=== PATIENT | male | born 1950 | race Caucasian/White ===

== ENCOUNTER 2020-10-28 18:09 | Inpatient (IN) ==
[2020-10-28] MEDS ORDERED: SODIUM CHLORIDE 0.9% 1000ML 1,000 ML IV SCH (18:45)
--- NOTE | 2020-10-28 19:36 | Emergency Department Note ---
History of Present Illness General Chief complaint: Illness Time Seen by Provider: 10/28/20 18:21 Source: patient and RN notes reviewed Mode of arrival: EMS Limitations: altered mental status (Dementia) History of Present Illness Provider complaint: Pulled Borrego catheter out and bleeding from penis This is a 69-year-old male who presents to the ED with a chief complaint of pulling his Borrego catheter out. The patient was seen by urology yesterday and had a Borrego catheter placed. The patient pulled out the catheter this morning and he subsequently somehow pulled out tonight. The is concerned about possible UTI. No additional complaints. Patient offers no additional information as he has dementia. Home Medications Medication Instructions Recorded Confirmed Type acetaminophen [Tylenol Extra 500 mg PO Q6H PRN 04/12/19 10/28/20 History Strength] carbidopa-levodopa 1 tab PO TID 04/12/19 10/28/20 History cranberry 500 mg PO DAILY 04/12/19 10/28/20 History levetiracetam [Keppra] 500 mg PO BID 04/12/19 10/28/20 History metformin 1,000 mg PO BID 04/12/19 10/28/20 History tamsulosin 0.4 mg PO DAILY 04/12/19 10/28/20 History cholecalciferol (vitamin D3) 2,000 unit PO DAILY 08/30/19 10/28/20 History [Vitamin D3] acetaminophen [Tylenol] 650 mg PO Q4 PRN 10/28/20 10/28/20 History apixaban [Eliquis] 5 mg PO BID 10/28/20 10/28/20 History ascorbic acid (vitamin C) [Vitamin 500 mg PO DAILY 10/28/20 10/28/20 History C] aspirin [Aspir-Low] 81 mg PO DAILY 10/28/20 10/28/20 History bisacodyl [Dulcolax (bisacodyl)] 10 mg MI DAILY PRN 10/28/20 10/28/20 History cyanocobalamin (vitamin B-12) 1,000 mcg PO DAILY 10/28/20 10/28/20 History dofetilide 250 mcg PO BID 10/28/20 10/28/20 History garlic 0 mg PO DAILY 10/28/20 10/28/20 History glipizide 2.5 mg PO DAILY 10/28/20 10/28/20 History magnesium hydroxide [Milk of 30 ml PO UD PRN 10/28/20 10/28/20 History Magnesia] methenamine hippurate 1 g PO BID 10/28/20 10/28/20 History nitrofurantoin monohyd/m-cryst 100 mg PO BID 10/28/20 10/28/20 History [Macrobid] pantoprazole 40 mg PO DAILY 10/28/20 10/28/20 History Allergies Allergy/AdvReac Type Severity Reaction Status Date / Time ciprofloxacin [From Cipro] Allergy Unknown Verified 10/28/20 20:51 Past Med/Surg History Medical History Dementia Diabetes HTN (hypertension) Parkinson disease Surgical History No pertinent past surgical history Family History Other No pertinent family history in first degree relatives Social History Smoking Status: Former smoker Preferred Language: Faroese Feels Safe at Home: Yes Review of Systems A total of 10 systems reviewed and were otherwise negative Physical Exam Vital Signs Vital Signs - 24 hr 10/28/20 18:15 10/28/20 18:18 10/28/20 18:24 Temperature 36.9 C Temperature Source Oral Pulse Rate 125 H 122 H 120 H Respiratory Rate 15 20 18 Respiratory Depth Normal Blood Pressure 125/70 125/70 Blood Pressure Mean 82 88 Pulse Oximetry 95 Oxygen Delivery Method Room Air Sepsis Recent Fever Within 48 Hours No Sepsis New/Unexplained Change in Mental Status No Sepsis Action Taken by Nursing No Action Required 10/28/20 18:30 10/28/20 18:49 10/28/20 19:01 Temperature Temperature Source Pulse Rate 131 H 127 H Respiratory Rate 15 20 Respiratory Depth Blood Pressure Blood Pressure Mean Pulse Oximetry 94 Oxygen Delivery Method Room Air Sepsis Recent Fever Within 48 Hours Sepsis New/Unexplained Change in Mental Status Sepsis Action Taken by Nursing 10/28/20 19:30 10/28/20 19:45 10/28/20 19:46 Temperature Temperature Source Pulse Rate 120 H 116 H 114 H Respiratory Rate 20 20 20 Respiratory Depth Blood Pressure 141/79 H Blood Pressure Mean 93 Pulse Oximetry Oxygen Delivery Method Sepsis Recent Fever Within 48 Hours Sepsis New/Unexplained Change in Mental Status Sepsis Action Taken by Nursing 10/28/20 20:00 10/28/20 20:01 10/28/20 20:30 Temperature Temperature Source Pulse Rate 114 H 114 H 105 H Respiratory Rate 15 20 20 Respiratory Depth Blood Pressure 134/73 Blood Pressure Mean 78 Pulse Oximetry Oxygen Delivery Method Sepsis Recent Fever Within 48 Hours Sepsis New/Unexplained Change in Mental Status Sepsis Action Taken by Nursing 10/28/20 20:31 Temperature Temperature Source Pulse Rate 107 H Respiratory Rate 24 Respiratory Depth Blood Pressure 135/69 Blood Pressure Mean 86 Pulse Oximetry Oxygen Delivery Method Sepsis Recent Fever Within 48 Hours Sepsis New/Unexplained Change in Mental Status Sepsis Action Taken by Nursing CONSTITUTIONAL/VITAL SIGNS: Reviewed / noted above. GENERAL: Non-toxic in appearance. INTEGUMENTARY: Warm, dry, and [place]. HEAD: Normocephalic. EYES: without scleral icterus or trauma. ENT/OROPHARYNX: clear and moist. LYMPHADENOPATHY/NECK: Is supple without lymphadenopathy or meningismus. RESPIRATORY: Lungs clear and equal. CARDIOVASCULAR: Regular rate and rhythm. GI/ABDOMEN: Soft and nontender. No organomegaly or pulsatile mass. No rebound or guarding. Normal bowel sounds. EXTREMITIES: Warm and well perfused. BACK: No CVA tenderness. NEUROLOGICAL: Intact without focal deficits. PSYCHIATRIC: normal affect. MUSCULOSKELETAL: Normally developed with good muscle tone. : The patient has small amount of blood at the tip of the penis. TRIAGE NURSING DOCUMENTATION REVIEWED. Course Administered Medications Discontinued Medications Sodium Chloride (Nss 1000ml) 1,000 mls @ 999 mls/hr IV .Q1H1M CHARLINE Stop: 10/28/20 19:45 Last Admin: 10/28/20 20:19 Dose: 999 mls/hr Documented by: [id number] Medical Decision Making Differential Diagnosis Differential includes acute coronary syndrome, myocardial infarction, CVA, TIA, anemia, infection, pneumonia, UTI, pyelonephritis, poor nutrition, dehydration, electrolyte disturbance,hypoglycemia. Medical Records Attestation: I reviewed the patient's medical records. Home Medications Current Medication List: was personally reviewed by me Laboratory Data Attestation: I reviewed the patient's lab results. Result diagrams: 10/28/20 20:16 10/28/20 20:16 Lab Results 10/28/20 10/28/20 Range/Units 20:16 20:16 WBC 16.78 H (4.8-10.8) K/uL RBC 4.65 L (4.7-6.1) M/uL Hgb 12.6 L (14.0-18.0) g/dL Hct 37.9 L (42-52) % MCV 81.5 (80-100) fL MCH 27.1 (25-34) pg MCHC 33.2 (32-36) g/dL RDW Std Deviation 45.9 (36.4-46.3) fL RDW Coeff of Donovan 15.5 H (11.5-14.5) % Plt Count 281 (130-400) K/uL MPV 9.9 (7.4-10.4) fL Immature Gran % (Auto) 0.2 % Neut % (Auto) 93.4 % Lymph % (Auto) 2.9 % [place] % (Auto) 3.4 % Eos % (Auto) 0.0 % Baso % (Auto) 0.1 % Neut # (Auto) 15.67 H (1.4-6.5) K/uL Lymph # (Auto) 0.49 L (1.2-3.4) K/uL [place] # (Auto) 0.57 (0.11-0.59) K/uL Eos # (Auto) 0.00 (0-0.5) K/uL Baso # (Auto) 0.01 (0-0.2) K/uL Immature Gran # (Auto) 0.04 H (0.00-0.02) K/uL Sodium 138 (136-145) mmol/L Potassium 4.5 (3.5-5.1) mmol/L Chloride 102 (98-107) mmol/L Carbon Dioxide 26 (21-32) mmol/L Anion Gap 10.0 (3-11) BUN 23 H (7-18) mg/dl Creatinine 1.79 H (0.6-1.4) mg/dl Est Cr Clr Drug Dosing 40.9 ml/min Est GFR ( Amer) 43.5 Est GFR (Non-Af Amer) 37.6 BUN/Creatinine Ratio 13.0 (10-20) Glucose 136 H (70-99) mg/dl Calcium 10.4 H (8.5-10.1) mg/dl Total Bilirubin 0.6 (0.2-1) mg/dl AST 13 L (15-37) U/L ALT 24 (12-78) U/L Alkaline Phosphatase 96 (45-117) U/L Total Protein 8.4 H (6.4-8.2) gm/dl Albumin 4.0 (3.4-5.0) gm/dl Globulin 4.4 H (2.5-4.0) gm/dl Albumin/Globulin Ratio 0.9 (0.9-2) MDM Narrative Patient presents to the ED with a chief complaint of some blood at the tip of the penis after pulling Borrego catheter out. They were also concerned about some mild confusion. The patient's white blood count was 16.78. His chemistry panel shows a BUN of 23 and a creatinine of 1.79.This is slightly higher than labs in August. Nurses attempt to place a Borrego catheter but were unable to do so. I did talk with Dr. Zhou who did a cystoscopy yesterday and place a catheter via cystoscopy. He stated that the patient did not need to catheter and is typically dribbling on a regular basis. He did not feel the patient requires a catheter and can safely go home with monitoring of the urine output to see if he develops any symptoms of urinary retention. A bladder scan showed about 300 cc of urine in the bladder. The patient did start dribbling while he was here and was passing a little bit of urine. We were unable to get a urine sample. Because there is a slight elevation of the white blood cell count, the patient was given an IV dose of Rocephin. The patient has a culture of the urine from yesterday showing gram-negative bacilli. Because of the patient's confusion of the UTI, he will be seen by the hospitalist for further inpatient evaluation and care. He was given some IV fluids during his ED stay. Impression & Plan Acute UTI, Acute confusion, Acute kidney injury Discharge Plan Visit Data Chief Complaint: Illness ED Provider: Russel Jarvis Discharge Problem: Acute UTI, Acute confusion, Acute kidney injury Patient Disposition: Being Evaluated by Hospitalist Forms Stand Alone Forms: My [facility] Prescriptions Prescriptions: No Action levetiracetam [Keppra] 500 mg Tablet 500 mg PO BID RF: 0 metformin 1,000 mg Tablet 1,000 mg PO BID RF: 0 tamsulosin 0.4 mg Capsule 0.4 mg PO DAILY RF: 0 carbidopa-levodopa 25-100 mg tablet 1 tab PO TID RF: 0 cranberry 500 mg Capsule 500 mg PO DAILY RF: 0 acetaminophen [Tylenol Extra Strength] 500 mg Tablet 500 mg PO Q6H PRN (Reason: Mild Pain (Scale Score 1-4)) RF: 0 cholecalciferol (vitamin D3) [Vitamin D3] 2,000 unit Tablet 2,000 unit PO DAILY RF: 0 cyanocobalamin (vitamin B-12) 1,000 mcg Tablet 1,000 mcg PO DAILY RF: 0 dofetilide 125 mcg capsule 250 mcg PO BID RF: 0 aspirin [Aspir-Low] 81 mg Tablet,Delayed Release (Dr/Ec) 81 mg PO DAILY RF: 0 methenamine hippurate 1 gram tablet 1 g PO BID RF: 0 magnesium hydroxide [Milk of Magnesia] 400 mg/5 mL Suspension 30 ml PO UD PRN (Reason: Constipation) RF: 0 ascorbic acid (vitamin C) [Vitamin C] 500 mg Tablet 500 mg PO DAILY RF: 0 glipizide 2.5 mg tablet extended release 24hr 2.5 mg PO DAILY RF: 0 bisacodyl [Dulcolax (bisacodyl)] 10 mg Suppository 10 mg MI DAILY PRN (Reason: Constipation) RF: 0 pantoprazole 40 mg tablet,delayed release (DR/EC) 40 mg PO DAILY RF: 0 garlic Tablet 0 mg PO DAILY RF: 0 nitrofurantoin monohyd/m-cryst [Macrobid] 100 mg Capsule 100 mg PO BID RF: 0 acetaminophen [Tylenol] 325 mg Capsule 650 mg PO Q4 PRN (Reason: Fever Or Pain) RF: 0 Eliquis 5 mg tablet 5 mg PO BID RF: 0 Referrals Referrals: Kostas Hannah [Primary Care Provider] -
[2020-10-28 20:26] LABS: Hematocrit (blood only) 37.9 % (42-52); Hemoglobin 12.6 g/dL (14.0-18.0); Mean Corpuscular Hemoglobin 27.1 pg (25-34); Mean Corpuscular Hgb Conc 33.2 g/dL (32-36); Mean Corpuscular Volume 81.5 fL (80-100); Mean Platelet Volume 9.9 fL (7.4-10.4); Platelet Count 281 K/uL (130-400); RDW Coefficient of Variation 15.5 % (11.5-14.5); RDW Standard Deviation 45.9 fL (36.4-46.3); Red Blood Count 4.65 M/uL (4.7-6.1); White Blood Count 16.78 K/uL (4.8-10.8)
[2020-10-28 20:44] LABS: Calcium 10.4 mg/dl (8.5-10.1); Creatinine Clr Calc Pharmacy 40.9 ml/min; Est GFR (African American) 43.5; Est GFR (Non-African American) 37.6; Potassium 4.5 mmol/L (3.5-5.1)
[2020-10-28 20:47] LABS: Albumin Globulin Ratio 0.9 (0.9-2); Bilirubin,Total 0.6 mg/dl (0.2-1); Globulin 4.4 gm/dl (2.5-4.0); Total Protein 8.4 gm/dl (6.4-8.2)
[2020-10-28 20:51] LABS: Basophils # (auto) 0.01 K/uL (0-0.2); Basophils % (auto) 0.1 %; Immature Granulocytes # (auto) 0.04 K/uL (0.00-0.02); Immature Granulocytes % (auto) 0.2 %; Lymphocytes # (auto) 0.49 K/uL (1.2-3.4); Lymphocytes % (auto) 2.9 %; Monocytes # (auto) 0.57 K/uL (0.11-0.59); Monocytes % (auto) 3.4 %; Neutrophils # (auto) 15.67 K/uL (1.4-6.5); Neutrophils % (auto) 93.4 %
[2020-10-28] MEDS ORDERED: cefTRIAXone SODIUM 1,000 MG/50 ML BAG IV STA (21:00)
--- NOTE | 2020-10-28 22:58 | History & Physical Report ---
Date of Service October 28, 2020 Assessment & Plan (1) Acute UTI: Mr. Porras is a 69 yo M with a PMHx of BPH with urinary retention and recurrent UTIs who underwent a cystoscopy 1 day [employer] with mascorro catheter placement who was brought to the emergency department from his acute rehab facility after his mascorro catheter was reportedly removed due to concerns about clotting. On arrival to the ED, Mr. Porras met SIRS criteria (WBC > 12k, HR > 90bpm), and his urine culture from 10/27/20 returned growing gram - bacilli. Patient was given 1 liter of normal saline and 1 dose of Rocephin on admission. The ED physician reportedly communicated with Dr. Julio C Zhou, who recommend initiation of antibiotics and observing Mr. Porras overnight to assess for ability to spontaneously void without a mascorro catheter in place. - on review of scanned documents, outside records indicate Mr. Porras had a urine culture from April 2020 + ESBL Klebsiella. - will d/c Rocephin and initiate antimicrobial therapy with Meropenem - will place on contact precautions for ESBL hx - patient receive 1 liter of normal saline in ED. Will add 1 liter bolus of LR + continuous fluids at 100mls/hr - repeat CBC in am - follow urine culture results (2) BPH w urinary obs/LUTS: - patient with known BPH and incomplete bladder voiding - patient did have A/P CT scan on 10/12 at [facility] which showed bilateral hydronephrosis, thought to be chronic from his BPH - cystoscopy and mascorro placement on 10/27/20; cath removed by rehab staff today for clotting issue. ED nursing staff unable to replace - assess for patient's ability to saponaceously void. If able, no need to replace mascorro - bladder scans and straight caths prn - continue home dose of Flomax - start Finasteride (per Dr. Zhou note on 10/27/20). 1st dose given on evening of 10/28 - urology consult placed (3) Hematuria, gross: - hematuria reported by acute rehab staff likely secondary to recent procedure while on Eliquis - mascorro removed at rehab [employer] - Hgb stable - trend CBC (4) Acute confusion: - patient does have underlying dementia (exact baseline unknown) - suspect acute change secondary to UTI - electrolytes WNL - no report of fall/head trauma from rehab facility - continue to monitor with serial exams (5) Acute kidney injury: - Cr elevated to 1.74 on admission (was 1.3 in 08/2020) - BUN elevated to 23; ratio 13 - suspect prenal etiology - IV as above - repeat BMP in am (6) Parkinson disease: - history of - continue home dose sinemet (7) Diabetes: - history of - BG elevated to 123 on arrival, although this may be secondary to physiologic stress response (in the setting of acute infection) - BG checks ACHS - hold home metformin and glipizide - will start Lantus insulin 5 units BID with correction factor of 55 and carb ratio of 22 (8) Hx of seizure disorder: - continue home dose Keppra (9) Paroxysmal atrial fibrillation: - on chronic anticoagulation with eliquis - continue home dofetilide (question of this drug's utility) - patient was also on antiplatelet therapy with ASA 81mg daily - however it does not appear as though he has underlying CAD. Recommend not restarting daily ASA therapy - patient in sinus rhythm on admission Diet: Carb Consistent DM2 Dispo: Med/Surg w. Tele Dvt ppx: on eliquis Code: DNR/DNI, I discussed with patient's phone over phone on admission History of Present Illness Primary Care Provider: Kostas Hannah Mr. Porras is a 69 yo gentleman with a PMHx of BPH with urinary retention and recurrent UTIs who was admitted today from his rehab facility after removal of a Mascorro catheter. Of note, yesterday (10/27/20) Mr. Porras had an in-office cystoscopy performed by Dr. Julio C Zhou, at which time a urinary catheter was placed. It appears as though Mr. Porras has prostatomegaly, which is causing incomplete bladder voiding and subsequent UTIs. Dr. Zhou recommend consideration of a prostate de-bulking procedure in the near future, and started Mr. Porras on finasteride in the interim. At the time of his office visit with Dr. Zhou yesterday, a urine culture was obtained. Mr. Porras's reports that she was contacted by the staff at his rehab facility today, who reported they removed his mascorro catheter 'because it kept clotting up.' Mr. Porras is on chronic anticoagulation with Eliquis for paroxysmal atrial fibrillation. On arrival to the ED, Mr. Porras was lethargic; he was afebrile and mildly tachycardic to 108 bpm. His WBC was elevated to 16 with neutrophil predominance. Urine culture from 10/27/20 showed growth of gram - bacilli. His Cr was elevated to 1.74 (up from 1.3 in 08/2020), and BUN was mildly elevated to 23. COVID 19 negative. He was given 1 liter of normal saline and 1 dose of IV Rocephin. Nursing staff attempted to re-place mascorro catheter but was unable. Allergies Allergy/AdvReac Type Severity Reaction Status Date / Time ciprofloxacin [From Cipro] Allergy Unknown Verified 10/28/20 20:51 Home Medications Medication Instructions Recorded Confirmed Type acetaminophen [Tylenol Extra 500 mg PO Q6H PRN 04/12/19 10/28/20 History Strength] carbidopa-levodopa 1 tab PO TID 04/12/19 10/28/20 History cranberry 500 mg PO DAILY 04/12/19 10/28/20 History levetiracetam [Keppra] 500 mg PO BID 04/12/19 10/28/20 History metformin 1,000 mg PO BID 04/12/19 10/28/20 History tamsulosin 0.4 mg PO DAILY 04/12/19 10/28/20 History cholecalciferol (vitamin D3) 2,000 unit PO DAILY 08/30/19 10/28/20 History [Vitamin D3] acetaminophen [Tylenol] 650 mg PO Q4 PRN 10/28/20 10/28/20 History apixaban [Eliquis] 5 mg PO BID 10/28/20 10/28/20 History ascorbic acid (vitamin C) [Vitamin 500 mg PO DAILY 10/28/20 10/28/20 History C] aspirin [Aspir-Low] 81 mg PO DAILY 10/28/20 10/28/20 History bisacodyl [Dulcolax (bisacodyl)] 10 mg SD DAILY PRN 10/28/20 10/28/20 History cyanocobalamin (vitamin B-12) 1,000 mcg PO DAILY 10/28/20 10/28/20 History dofetilide 250 mcg PO BID 10/28/20 10/28/20 History garlic 0 mg PO DAILY 10/28/20 10/28/20 History glipizide 2.5 mg PO DAILY 10/28/20 10/28/20 History magnesium hydroxide [Milk of 30 ml PO UD PRN 10/28/20 10/28/20 History Magnesia] methenamine hippurate 1 g PO BID 10/28/20 10/28/20 History nitrofurantoin monohyd/m-cryst 100 mg PO BID 10/28/20 10/28/20 History [Macrobid] pantoprazole 40 mg PO DAILY 10/28/20 10/28/20 History Past Med/Surg History Medical History (Updated 10/29/20 @ 00:34 by Charisse Goode DO) BPH w urinary obs/LUTS Dementia Diabetes HTN (hypertension) Hx of seizure disorder Parkinson disease Paroxysmal atrial fibrillation Surgical History No pertinent past surgical history Family History Other No pertinent family history in first degree relatives Social History Smoking Status: Never smoker Hx Alcohol Use: No Hx Substance Use: No Preferred Language: German Communication Ability: Effective Communication Ability Comment: when no infection Beliefs That Will Affect Care: None Current Living Situation: Spouse Current Living Situation Comment: normally with spouse at home Other Information That Helps Us Care for You: No Feels Safe at Home: Yes Safety Concerns: Feels Safe At This Time Assistive Devices: Glasses and Walker Review of Systems Gastrointestinal: no abdominal pain Physical Exam Constitutional: well developed, well nourished, + ill appearing and + altered mental status Eyes: + anicteric sclerae ENMT: external ear and nose normal, oropharynx normal Neck: normal visual inspection and trachea midline Respiratory: normal respiratory effort, lungs clear to auscultation Cardiovascular: Rate/Rhythm: regular rhythm and + tachycardic Heart Sounds: normal S1 and normal S2; no gallop, no murmur and no cardiac rub Extremities: no pedal edema Gastrointestinal (Abdomen): Inspection/Auscultation: abdomen normal to inspection and normal bowel sounds; abdomen not distended Percussion/Palpation: abdomen soft; abdomen nontender Skin: no rashes, warm and dry Psychiatric: Orientation: oriented to person and oriented to place; + not alert (drowsy, arousable to sternal rub) and + not oriented to time Results & Data Results & Data ([facility]) Vital Signs (Past 12 Hours) Vital Signs Temp Pulse Resp BP Pulse Ox 10/28/20 22:32 108 H 21 151/81 H 10/28/20 22:30 108 H 23 10/28/20 22:01 107 H 21 117/78 10/28/20 22:00 108 H 22 10/28/20 21:32 109 H 24 10/28/20 21:31 111 H 20 144/88 H 10/28/20 21:30 109 H 19 10/28/20 21:02 108 H 23 10/28/20 21:01 110 H 14 149/96 H 10/28/20 21:00 107 H 19 10/28/20 20:32 106 H 20 10/28/20 20:31 107 H 24 135/69 10/28/20 20:30 105 H 20 10/28/20 20:01 114 H 20 134/73 10/28/20 20:00 114 H 15 10/28/20 19:46 114 H 20 10/28/20 19:45 116 H 20 141/79 H 10/28/20 19:30 120 H 20 10/28/20 19:01 127 H 20 10/28/20 18:49 94 10/28/20 18:30 131 H 15 10/28/20 18:24 36.9 C 120 H 18 125/70 95 10/28/20 18:18 122 H 20 10/28/20 18:15 125 H 15 125/70 Laboratory Results Lab Results 10/28/20 10/28/20 10/28/20 Range/Units 20:16 20:16 21:50 WBC 16.78 H (4.8-10.8) K/uL RBC 4.65 L (4.7-6.1) M/uL Hgb 12.6 L (14.0-18.0) g/dL Hct 37.9 L (42-52) % MCV 81.5 (80-100) fL MCH 27.1 (25-34) pg MCHC 33.2 (32-36) g/dL RDW Std Deviation 45.9 (36.4-46.3) fL RDW Coeff of Donovan 15.5 H (11.5-14.5) % Plt Count 281 (130-400) K/uL MPV 9.9 (7.4-10.4) fL Immature Gran % (Auto) 0.2 % Neut % (Auto) 93.4 % Lymph % (Auto) 2.9 % [place] % (Auto) 3.4 % Eos % (Auto) 0.0 % Baso % (Auto) 0.1 % Neut # (Auto) 15.67 H (1.4-6.5) K/uL Lymph # (Auto) 0.49 L (1.2-3.4) K/uL [place] # (Auto) 0.57 (0.11-0.59) K/uL Eos # (Auto) 0.00 (0-0.5) K/uL Baso # (Auto) 0.01 (0-0.2) K/uL Immature Gran # (Auto) 0.04 H (0.00-0.02) K/uL Sodium 138 (136-145) mmol/L Potassium 4.5 (3.5-5.1) mmol/L Chloride 102 (98-107) mmol/L Carbon Dioxide 26 (21-32) mmol/L Anion Gap 10.0 (3-11) BUN 23 H (7-18) mg/dl Creatinine 1.79 H (0.6-1.4) mg/dl Est Cr Clr Drug Dosing 40.9 ml/min Est GFR ( Amer) 43.5 Est GFR (Non-Af Amer) 37.6 BUN/Creatinine Ratio 13.0 (10-20) Glucose 136 H (70-99) mg/dl Calcium 10.4 H (8.5-10.1) mg/dl Total Bilirubin 0.6 (0.2-1) mg/dl AST 13 L (15-37) U/L ALT 24 (12-78) U/L Alkaline Phosphatase 96 (45-117) U/L Total Protein 8.4 H (6.4-8.2) gm/dl Albumin 4.0 (3.4-5.0) gm/dl Globulin 4.4 H (2.5-4.0) gm/dl Albumin/Globulin Ratio 0.9 (0.9-2) COVID-19 Eval [facility] SARS-CoV-2, RNA, NAAT (NEGATIVE) 10/28/20 Range/Units 21:50 WBC (4.8-10.8) K/uL RBC (4.7-6.1) M/uL Hgb (14.0-18.0) g/dL Hct (42-52) % MCV (80-100) fL MCH (25-34) pg MCHC (32-36) g/dL RDW Std Deviation (36.4-46.3) fL RDW Coeff of Donovan (11.5-14.5) % Plt Count (130-400) K/uL MPV (7.4-10.4) fL Immature Gran % (Auto) % Neut % (Auto) % Lymph % (Auto) % [place] % (Auto) % Eos % (Auto) % Baso % (Auto) % Neut # (Auto) (1.4-6.5) K/uL Lymph # (Auto) (1.2-3.4) K/uL [place] # (Auto) (0.11-0.59) K/uL Eos # (Auto) (0-0.5) K/uL Baso # (Auto) (0-0.2) K/uL Immature Gran # (Auto) (0.00-0.02) K/uL Sodium (136-145) mmol/L Potassium (3.5-5.1) mmol/L Chloride (98-107) mmol/L Carbon Dioxide (21-32) mmol/L Anion Gap (3-11) BUN (7-18) mg/dl Creatinine (0.6-1.4) mg/dl Est Cr Clr Drug Dosing ml/min Est GFR ( Amer) Est GFR (Non-Af Amer) BUN/Creatinine Ratio (10-20) Glucose (70-99) mg/dl Calcium (8.5-10.1) mg/dl Total Bilirubin (0.2-1) mg/dl AST (15-37) U/L ALT (12-78) U/L Alkaline Phosphatase (45-117) U/L Total Protein (6.4-8.2) gm/dl Albumin (3.4-5.0) gm/dl Globulin (2.5-4.0) gm/dl Albumin/Globulin Ratio (0.9-2) COVID-19 Eval Order SARS-CoV-2, RNA, NAAT NEGATIVE (NEGATIVE) ECG Additional Comments: Sinus tachycardia. No acute ischemic changes. Supervising Physician Co-Signing Physician Notes Patient seen and examined, chart reviewed, case discussed with Dr. Miller and I agree with her assessment and plan as documented above. Briefly, Rasheed Porras is a 69yo male with history of PAF on Eliquis, BPH with LUTS, presenting from his acute rehab facility after Mascorro removal - concern for urinary retention. Patient had a cystoscopy with Mascorro placement by Urology one day prior to admission. He reports pulling his Mascorro out, however, staff at rehab told patient's that they removed the Mascorro because it was clotting? Uncertain. However, patient currently with no Mascorro catheter in place. Attempts to replace one in the ER were unsuccessful. Patient is dribbling some urine, however. He has a UTI - urine cultures from 10/27/20 preliminary positive for GNB x 2 species, he has history of ESBL Klebsiella previously treated with Meropenem. Patient's updated by Dr. Miller at time of admission. She states that patient becomes quite confused with UTIs and thinks he has one now. Code status confirmed as DNR. On exam he is afebrile, sinus tachycardia otherwise HD stable He does not answer questions or participate in exam at this time. Skin - no rash HEENT - NC/AT, PERRL, EOMI, MMM Heart - +S1/S2, regular, tachycardic Lungs - CTA Abd - +BS, soft, NT/ND, no suprapubic fullness - slightly tender Ext - No edema Labs and images reviewed. Assessment/Plan: Observation to medical with telemetry - IVF -Monitor UOP - bladder scan as needed -Will continue Flomax and start Finasteride -Meropenem until cultures resulted -Urology assessment appreciated Resident Activity Tracking Resident Involvement: Resident Care Provided Care Provided: Adult Hospital Medicine
[2020-10-28] MEDS ORDERED: bisacodyL 10 MG SUPP PR PRN (23:18)
[2020-10-28] MEDS ORDERED: ONDANSETRON INJ 2 MG/ML 2 ML VIAL IV PRN (23:18)
[2020-10-28] MEDS ORDERED: POLYETHYLENE (MIRALAX) 17 GM PACK PO PRN (23:18)
[2020-10-28] MEDS ORDERED: FINASTERIDE 5 MG TAB PO STA (23:18)
[2020-10-28] MEDS ORDERED: MAGNESIUM HYDROXIDE SUSP 30 ML UDC PO PRN (23:18)
[2020-10-28] MEDS ORDERED: ACETAMINOPHEN 325 MG TAB PO PRN (23:18)
[2020-10-28] MEDS ORDERED: MEROPENEM CONSULT ACITVE PRN (23:18)
[2020-10-28] MEDS ORDERED: ALUMINUM/MAGNESIUM SUSP 30 ML UDC PO PRN (23:18)
[2020-10-28] MEDS ORDERED: LACTATED RINGER'S 1,000 ML IV ONE (23:30)
[2020-10-29] MEDS ORDERED: MEROPENEM 500 MG in SYRINGE 0 ML IV SCH
--- NOTE | 2020-10-29 00:44 | Billing Data ---
Date of Service October 28, 2020 Coding Level of Care Code 98637 OBS Care - Discharge
[2020-10-29] MEDS: LACTATED RINGER'S 1,000 ML IV SCH ×3 (01:52→20:20)
[2020-10-29] MEDS ORDERED: metFORMIN HCL 500 MG TAB PO SCH (08:00)
[2020-10-29 08:30] LABS: Basophils # (auto) 0.03 K/uL (0-0.2); Basophils % (auto) 0.2 %; Eosinophils # (auto) 0.02 K/uL (0-0.5); Eosinophils % (auto) 0.2 %; Hematocrit (blood only) 32.5 % (42-52); Hemoglobin 10.9 g/dL (14.0-18.0); Immature Granulocytes # (auto) 0.04 K/uL (0.00-0.02); Immature Granulocytes % (auto) 0.3 %; Mean Corpuscular Hemoglobin 27.3 pg (25-34); Mean Corpuscular Hgb Conc 33.5 g/dL (32-36); Mean Corpuscular Volume 81.3 fL (80-100); Mean Platelet Volume 9.9 fL (7.4-10.4); Monocytes # (auto) 1.14 K/uL (0.11-0.59); Monocytes % (auto) 8.8 %; Neutrophils # (auto) 10.78 K/uL (1.4-6.5); Neutrophils % (auto) 83.5 %; Platelet Count 256 K/uL (130-400); RDW Coefficient of Variation 15.8 % (11.5-14.5); RDW Standard Deviation 47.3 fL (36.4-46.3); White Blood Count 12.91 K/uL (4.8-10.8)
[2020-10-29 08:59] LABS: BUN Creatinine Ratio 15.5 (10-20); Creatinine Clr Calc Pharmacy 48.1 ml/min
[2020-10-29] MEDS ORDERED: ASPIRIN 81 MG ECTAB PO SCH (09:00)
[2020-10-29] MEDS: TAMSULOSIN HCL 0.4 MG CAP PO SCH (09:00)
[2020-10-29] MEDS: PANTOprazole 40 MG TAB PO SCH (09:00)
[2020-10-29] MEDS ORDERED: glipiZIDE ER 2.5 MG TABCR PO SCH (09:00)
[2020-10-29] MEDS: levETIRAcetam 500 MG TAB PO SCH ×2 (09:00→20:23)
[2020-10-29] MEDS: CARBIDOPA/LEVODOPA 25/100MG TAB PO SCH ×3 (09:01→20:23)
[2020-10-29] MEDS: DOFETILIDE 125 MCG CAPSULE PO SCH ×2 (09:01→20:23)
[2020-10-29] MEDS: FINASTERIDE 5 MG TAB PO SCH (09:01)
[2020-10-29] MEDS: APIXABAN 5 MG TABLET PO SCH ×2 (09:01→20:23)
--- NOTE | 2020-10-29 09:09 | Electrocardiogram Report ---
Test Reason : Blood Pressure : / mmHG Vent. Rate : 121 BPM Atrial Rate : 121 BPM P-R Int : 152 ms QRS Dur : 090 ms QT Int : 302 ms P-R-T Axes : 062 -56 063 degrees QTc Int : 428 ms Poor data quality, interpretation may be adversely affected Sinus tachycardia Left anterior fascicular block Septal infarct , age undetermined Abnormal ECG When compared with ECG of 30-AUG-2019 21:19, Premature atrial complexes are no longer Present Vent. rate has increased BY 53 BPM Septal infarct is now Present T wave inversion no longer evident in Inferior leads Confirmed by Saw Luke ([id number]) on 10/29/2020 9:08:41 AM Referred By: REFERRED SELF Confirmed By:Saw Luke
[2020-10-29 09:30] LABS: Appearance Urine Clear (Clear); Bacteria Urine Automated Negative (Negative); Bilirubin Urine Negative (Negative); Blood Urine 3+ (Negative); Color Urine Yellow; Epithelial Cell Urine Auto >30 /lpf (0-5); Glucose Urine UA Negative (Negative); Ketones Urine Trace (Negative); Leukocyte Esterase Urine 1+ (Negative); Nitrite Urine Positive (Negative); RBC Urine Automated >30 /hpf (0-4); Specific Gravity Urine 1.012 (1.000-1.030); Urobilinogen Urine Negative (Negative); pH Urine 7.5 (4.5-7.5)
[2020-10-29 09:36] LABS: Protein Urine 1+ (Negative)
[2020-10-29] MEDS: ERTAPENEM SODIUM 1,000 MG in SODIUM CHLORIDE 0.9% 50 ML IV SCH (10:41)
--- NOTE | 2020-10-29 13:03 | Hospitalist Progress Note ---
Date of Service October 29, 2020 Assessment & Plan (1) Acute UTI: Complicated / catheter associated. 2nd to ESBL klebsiella. Sens meropenem/ertapenem. Has had ESBL klebsiella UTIs in the past on several occasions including recently in 08/2020. Spoke with pharmacy - narrow meropenem to ertapenem. Leukocytosis improving. PATIENT REALLY DESERVES PROSTATE EXAM/SUZANNA TO R/O PROSTATITIS. Given he has been treated several times for this pathogen I am concerned he has prostatitis and thus would need longer course of IV antibiotics. (2) BPH w urinary obs/LUTS: Severe BPH. b/l hydronephrosis likely 2nd to obstruction from BPH. Cont finasteride & flomax. May need mascorro to be placed back if severe retention persists. appreciate urology consultation. (3) Hematuria, gross: By report - likely due to mascorro trauma (if patient removed catheter himself) and/or UTI and/or kidney stones. Follow. (4) Acute confusion: Metabolic encephalopathy likely 2nd UTI. Supportive care. Treat UTI. (5) Acute kidney injury: Baseline Cr 1. Peak Cr 1.79. Now 1.57. Cont IVF; repeat BMP am. Likely obstructive in nature. (6) Parkinson disease: Severe. Cont carbidopa-levodopa at home dosing. (7) Diabetes: Hold oral agents. Check a1c am. DM diet. novolog SSI. (8) Hx of seizure disorder: Noted. Cont keppra 500 BID. (9) Paroxysmal atrial fibrillation: Cont eliquis 5mg BID. Cont dofetilide BID. No discrete PAF seen thus far. (10) Hydronephrosis: outside CT scan dated 10/12/2020 with b/l hydronephrosis. likely due to obstruction from BPH. (11) DVT prophylaxis: eliquis 5mg BID updated by phone this evening care d/w [facility] urology abx d/w pharmacy needs PT, OT jus Admission and Anticipated Discharge Date Admission Date: October 28, 2020 Subjective patient lying in bed comfortably during the visit. he was able to tell me that he recently was in rehab after spending time at [facility]. he told me he was rehabbing at [facility], but was actually at [facility] in [place] according to his . (patient was at [facility] in 08/2020 per records) 10/27 - saw Dr Zhou in urology office. underwent cystoscope for severe BPH. placed on finasteride. urine cx from 10/27 with ESBL klebsiella and 2nd species of klebsiella. sensitive to meropenem and ertapenem. during that 10/27 visit a mascorro was placed. a d/c summary from 08/2020 from [facility] in [place] states patient was hospitalized for ESBL klebsiella UTI at [facility]. Id consult recommended 2 weeks of meropenem. I cannot find any record of SUZANNA at any time to r/o prostatitis. tele overnight - NSR and brief runs of PAT Lastly, by report, the patient either removed his mascorro at [place] or staff removed it because of gross hematuria. Review of Systems Constitutional: + fatigue; no fever and no anorexia Respiratory: no cough and no dyspnea Cardiovascular: no chest pain Gastrointestinal: no abdominal pain Physical Exam Constitutional: + altered mental status (mild); no acute distress ENMT: external ear and nose normal, oropharynx normal Respiratory: normal respiratory effort, lungs clear to auscultation Cardiovascular: Rate/Rhythm: regular rate and regular rhythm Heart Sounds: normal S1 and normal S2; no murmur Vessels: posterior tibial pulses present and dorsalis pedis pulses present; no JVD Extremities: no edema Gastrointestinal (Abdomen): normal bowel sounds, soft, nontender, no hepatosplenomegaly Neurologic: rigidity and bradykinesias; masked facies Psychiatric: Orientation: alert, oriented to person and oriented to place; + not oriented to time Results & Data Results & Data ([facility]) Vital Signs (Past 12 Hours) Vital Signs Temp Pulse Pulse Resp BP Pulse Ox 10/29/20 11:16 36.9 C 65 20 109/69 94 10/29/20 08:35 36.4 C L 72 20 102/61 95 10/29/20 07:00 73 10/29/20 03:50 37.2 C 86 18 113/60 93 10/29/20 01:46 108 H 10/29/20 01:43 37.4 C 107 H 20 127/65 93 Laboratory Results Laboratory Results - last 24 hr 10/28/20 10/28/20 10/28/20 20:16 20:16 21:50 WBC 16.78 H RBC 4.65 L Hgb 12.6 L Hct 37.9 L MCV 81.5 MCH 27.1 MCHC 33.2 RDW Std Deviation 45.9 RDW Coeff of Donovan 15.5 H Plt Count 281 MPV 9.9 Immature Gran % (Auto) 0.2 Neut % (Auto) 93.4 Lymph % (Auto) 2.9 [place] % (Auto) 3.4 Eos % (Auto) 0.0 Baso % (Auto) 0.1 Neut # (Auto) 15.67 H Lymph # (Auto) 0.49 L [place] # (Auto) 0.57 Eos # (Auto) 0.00 Baso # (Auto) 0.01 Immature Gran # (Auto) 0.04 H Sodium 138 Potassium 4.5 Chloride 102 Carbon Dioxide 26 Anion Gap 10.0 BUN 23 H Creatinine 1.79 H Est Cr Clr Drug Dosing 40.9 Est GFR ( Amer) 43.5 Est GFR (Non-Af Amer) 37.6 BUN/Creatinine Ratio 13.0 Glucose 136 H POC Glucose Calcium 10.4 H Total Bilirubin 0.6 AST 13 L ALT 24 Alkaline Phosphatase 96 Total Protein 8.4 H Albumin 4.0 Globulin 4.4 H Albumin/Globulin Ratio 0.9 Urine Color Urine Appearance Urine pH Ur Specific [place] Urine Protein Urine Glucose (UA) Urine Ketones Urine Blood Urine Nitrite Urine Bilirubin Urine Urobilinogen Ur Leukocyte Esterase Urine WBC (Auto) Urine RBC (Auto) U Hyaline Cast (Auto) U Epithel Cells (Auto) Urine Bacteria (Auto) Ur Renal Epithelial Cell COVID-19 Eval Order Covid19 [facility] SARS-CoV-2, RNA, NAAT 10/28/20 10/29/20 10/29/20 21:50 07:40 08:17 WBC 12.91 H RBC 4.00 L Hgb 10.9 L Hct 32.5 L MCV 81.3 MCH 27.3 MCHC 33.5 RDW Std Deviation 47.3 H RDW Coeff of [place] 15.8 H Plt Count 256 MPV 9.9 Immature Gran % (Auto) 0.3 Neut % (Auto) 83.5 Lymph % (Auto) 7.0 [place] % (Auto) 8.8 Eos % (Auto) 0.2 Baso % (Auto) 0.2 Neut # (Auto) 10.78 H Lymph # (Auto) 0.90 L [place] # (Auto) 1.14 H Eos # (Auto) 0.02 Baso # (Auto) 0.03 Immature Gran # (Auto) 0.04 H Sodium Potassium Chloride Carbon Dioxide Anion Gap BUN Creatinine Est Cr Clr Drug Dosing Est GFR ( Amer) Est GFR (Non-Af Amer) BUN/Creatinine Ratio Glucose POC Glucose 114 H Calcium Total Bilirubin AST ALT Alkaline Phosphatase Total Protein Albumin Globulin Albumin/Globulin Ratio Urine Color Urine Appearance Urine pH Ur Specific [place] Urine Protein Urine Glucose (UA) Urine Ketones Urine Blood Urine Nitrite Urine Bilirubin Urine Urobilinogen Ur Leukocyte Esterase Urine WBC (Auto) Urine RBC (Auto) U Hyaline Cast (Auto) U Epithel Cells (Auto) Urine Bacteria (Auto) Ur Renal Epithelial Cell COVID-19 Eval Order SARS-CoV-2, RNA, NAAT NEGATIVE 10/29/20 10/29/20 10/29/20 08:17 09:10 11:34 WBC RBC Hgb Hct MCV MCH MCHC RDW Std Deviation RDW Coeff of [place] Plt Count MPV Immature Gran % (Auto) Neut % (Auto) Lymph % (Auto) [place] % (Auto) Eos % (Auto) Baso % (Auto) Neut # (Auto) Lymph # (Auto) [place] # (Auto) Eos # (Auto) Baso # (Auto) Immature Gran # (Auto) Sodium 138 Potassium 4.0 Chloride 105 Carbon Dioxide 26 Anion Gap 7.0 BUN 24 H Creatinine 1.57 H Est Cr Clr Drug Dosing 48.1 Est GFR ( Amer) 51.0 Est GFR (Non-Af Amer) 44.0 BUN/Creatinine Ratio 15.5 Glucose 110 H POC Glucose 112 H Calcium 9.0 Total Bilirubin AST ALT Alkaline Phosphatase Total Protein Albumin Globulin Albumin/Globulin Ratio Urine Color Yellow Urine Appearance Clear Urine pH 7.5 Ur Specific [place] 1.012 Urine Protein 1+ H Urine Glucose (UA) Negative Urine Ketones Trace H Urine Blood 3+ H Urine Nitrite Positive A Urine Bilirubin Negative Urine Urobilinogen Negative Ur Leukocyte Esterase 1+ H Urine WBC (Auto) 10-30 H Urine RBC (Auto) >30 H U Hyaline Cast (Auto) 1-5 U Epithel Cells (Auto) >30 H Urine Bacteria (Auto) Negative Ur Renal Epithelial Cell Not Reportable COVID-19 Eval Order SARS-CoV-2, RNA, NAAT urine cx - ESBL klebsiella PG Care Time/CCT Total # of Minutes Spent Total Time Spent with Patient: Total time spent is greater than 50% in coordination of care (as documented) at patient's floor/unit and/or counseling patient: Coding Level of Care Code 76250 Subseq Hosp Care Lvl 3 Diagnoses Acute UTI N39.0 BPH w urinary obs/LUTS N40.1; N13.8 Hematuria, gross R31.0 Acute confusion R41.0 Acute kidney injury N17.9 Parkinson disease G20 Diabetes E11.9 Diabetes mellitus type: type 2 Diabetes mellitus oil heaterman insulin use: without group home use Diabetes mellitus complication status: without complication Hx of seizure disorder Z86.69 Paroxysmal atrial fibrillation I48.0 Hydronephrosis N13.30 DVT prophylaxis Z29.9 (1) Diabetes Diabetes mellitus type: type 2 Diabetes mellitus oil heaterman insulin use: without oil heaterman use Diabetes mellitus complication status: without complication Qualified Code(s): E11.9 - Type 2 diabetes mellitus without complications
--- NOTE | 2020-10-29 14:19 | Urology Consultation ---
Date of Consultation October 29, 2020 Assessment & Plan (1) BPH w urinary obs/LUTS: Known patient with severe parkinsonism and dementia with acute exacerbation of UTI symptoms. Patient has been dealing with severe UTI issues for the last month with multiple episodes requiring antibiotics and considerable issues. Patient is severely deconditioned with worsening of overall mentation. Patient was seen on Friday and underwent scope and a catheter was left due to emptying issues likely exacerbated from the parkinsonism and obstructive issues. Patient currently at baseline for overall functionality and mentation. Similar to patient's state on Friday. At this point will likely require supportive care and antibiotics though this may be able to be done at his care facility. On exam patient is not significantly distended he is not having considerable suprapubic tenderness and is chronically incontinent of urine per records. If unable to place catheter would be reasonable to continue with monitoring. Patient likely has incomplete emptying at baseline and and less uncomfortable or having severe issues or worsening of JERRELL or overall UTI-like symptoms will be reasonable to hold off on catheter placement especially with possibility of patient dislodging or trying to self remove catheter. Patient's creatinine has improved. Agree with plans for supportive care. Agree with antibiotics. I agree with monitoring. Patient had recent imaging in outlying facility this had been reviewed interpreted by myself and did appear to have hydronephrosis likely from chronic obstructive issues. Could continue with imaging monitoring for now. Patient's complicated medical and surgical history reviewed and summarized above. Patient is poor historian due to memory and dementia related issues. Is at approximately baseline for his issues. (2) Hematuria, gross: (3) Acute UTI: History of Present Illness Attending Physician: Kvng De Santiago History of Present Illness Consult for Well-known patient with significant UTI episodes wit urinary issues with incomplete emptying and possible retention. Patient was seen in the office and underwent scope. Patient has significant obstructive issues as well as considerable issues with parkinsonism and likely severe deconditioning and neurologic issues that have likely exacerbated the obstructive issues. Patient had catheter placed due to incomplete emptying but did not tolerate and catheter either failed or patient attempted self removal. Was seen in the ER and another attempt to place catheter failed. However patient was emptying at that time. Due to possible worsening of UTI patient was admitted for observation and management. Patient has been voiding on his own small amounts with incontinent episodes. Patient has mild to moderate discomfort in pelvis and groin going to back and side in waves. Is dealing with acute illness. Has been deconditioned from this. Has decreased mobility significantly with acute issues But severe issues at baseline secondary to parkinsonism Did have Gross Hematuria with catheter. Allergies Allergy/AdvReac Type Severity Reaction Status Date / Time ciprofloxacin [From Cipro] Allergy Unknown Verified 10/28/20 20:51 Home Medications Medication Instructions Recorded Confirmed Type acetaminophen [Tylenol Extra 500 mg PO Q6H PRN 04/12/19 10/28/20 History Strength] carbidopa-levodopa 1 tab PO TID 04/12/19 10/28/20 History cranberry 500 mg PO DAILY 04/12/19 10/28/20 History levetiracetam [Keppra] 500 mg PO BID 04/12/19 10/28/20 History metformin 1,000 mg PO BID 04/12/19 10/28/20 History tamsulosin 0.4 mg PO DAILY 04/12/19 10/28/20 History cholecalciferol (vitamin D3) 2,000 unit PO DAILY 08/30/19 10/28/20 History [Vitamin D3] acetaminophen [Tylenol] 650 mg PO Q4 PRN 10/28/20 10/28/20 History apixaban [Eliquis] 5 mg PO BID 10/28/20 10/28/20 History ascorbic acid (vitamin C) [Vitamin 500 mg PO DAILY 10/28/20 10/28/20 History C] aspirin [Aspir-Low] 81 mg PO DAILY 10/28/20 10/28/20 History bisacodyl [Dulcolax (bisacodyl)] 10 mg MT DAILY PRN 10/28/20 10/28/20 History cyanocobalamin (vitamin B-12) 1,000 mcg PO DAILY 10/28/20 10/28/20 History dofetilide 250 mcg PO BID 10/28/20 10/28/20 History garlic 0 mg PO DAILY 10/28/20 10/28/20 History glipizide 2.5 mg PO DAILY 10/28/20 10/28/20 History magnesium hydroxide [Milk of 30 ml PO UD PRN 10/28/20 10/28/20 History Magnesia] methenamine hippurate 1 g PO BID 10/28/20 10/28/20 History nitrofurantoin monohyd/m-cryst 100 mg PO BID 10/28/20 10/28/20 History [Macrobid] pantoprazole 40 mg PO DAILY 10/28/20 10/28/20 History Patient History Medical History BPH w urinary obs/LUTS Dementia Diabetes HTN (hypertension) Hx of seizure disorder Parkinson disease Paroxysmal atrial fibrillation Surgical History No pertinent past surgical history Family History Other No pertinent family history in first degree relatives Social History Smoking Status: Never smoker Hx Alcohol Use: No Hx Substance Use: No Preferred Language: Venezuelan Communication Ability: Impaired Communication Ability Comment: when no infection Beliefs That Will Affect Care: None marital status: Current Living Situation: Spouse Current Living Situation Comment: normally with spouse at home Other Information That Helps Us Care for You: No Feels Safe at Home: Yes Safety Concerns: Feels Safe At This Time Assistive Devices: None Review of Systems Review of Systems: All systems reviewed & are unremarkable except as noted in HPI & below Physical Exam Physical Exam: General: Alert in no acute distress. Advanced age. Chronic Medical issues. Parkinsonism with significant tremor. HEENT: Normocephalic. Inspection normal. Cranial Nerves 2-12 Grossly intact with some hearing issues. Normal inspection of face. Normal inspection of neck. Psychologic: Normal affect. Baseline issues with memory. Respiratory: Nonlabored. No use of accessory muscles. No tachypnea or dyspnea. Cardiovascular: No tachycardia Skin: [place] and Dry. No rashes or visible lesions. Extremities/Lymphatics: Minor Mobility issues. Slow Gait. Abdomen: Soft Non-distended. No rebound or guarding. No suprapubic tenderness : No suprapubic tenderness or distension. Incontinent. Results & Data ([facility]) Vital Signs (Past 12 Hours) Vital Signs Temp Pulse Pulse Resp BP Pulse Ox 10/29/20 11:16 36.9 C 65 20 109/69 94 10/29/20 08:35 36.4 C L 72 20 102/61 95 10/29/20 07:00 73 01/17/21 03:50 37.2 C 86 18 113/60 93 PG Care Time/CCT Total # of Minutes Spent Total Time Spent with Patient: Total time spent is greater than 50% in coordination of care (as documented) at patient's floor/unit and/or counseling patient: Coding Level of Care Code 76753 Inpt Consult Level 5 Diagnoses BPH w urinary obs/LUTS N40.1; N13.8 Hematuria, gross R31.0 Acute UTI N39.0
[2020-10-30] MEDS: LACTATED RINGER'S 1,000 ML IV SCH ×2 (05:35→16:35)
--- NOTE | 2020-10-30 07:35 | Hospitalist Progress Note ---
Date of Service October 30, 2020 Assessment & Plan (1) Acute UTI: Mr. Porras is a 69 yo M with a PMHx of BPH with urinary retention and recurrent UTIs who underwent a cystoscopy 1 day MANAGER CREDIT with mascorro catheter placement who was brought to the emergency department from his acute rehab facility after his mascorro catheter was reportedly removed due to concerns about clotting. On arrival to the ED, Mr. Porras met SIRS criteria (WBC > 12k, HR > 90bpm), and his urine culture from 10/27/20 returned growing ESBL Klebsiella. Stable. acute complicated (catheter-associated) urinary tract infection - on review of scanned documents, outside records indicate Mr. Porras had a urine culture from April 2020 + ESBL Klebsiella. - will place on contact precautions for ESBL hx - patient receive 1 liter of normal saline in ED. Will add 1 liter bolus of LR + continuous fluids at 100mls/hr - Rocephin (x 1 dose) ->meropenem (x 1 day) -> ertapenem (on 2nd day as of 10/30/20). - narrowed to ertapenem after discussion w/ pharmacy - leukocytosis improving. wbc 16.78 (10/28) ->12.9 (10/29) - considered prostatitis on pathogen because of recurrence of this presentation. SUZANNA deferred at this time, but will perform if symptoms do not improve - repeat CBC in am BPH w urinary obs/LUTS Severe BPH. - b/l hydronephrosis likely 2nd to obstruction from BPH. - Cont finasteride & flomax. - May need mascorro to be placed back if severe retention persists. Hematuria, gross - By report - likely due to mascorro trauma (if patient removed catheter himself) and/or UTI and/or kidney stones. - 10/30/20 nursing noted slight pink tinge in urine - will follow clinical symptoms acute confusion - Metabolic encephalopathy likely 2nd UTI. - supportive care. - treat UTI. Acute kidney injury - Baseline Cr 1. Peak Cr 1.79. downtrendin10/29/20 1.57. - Cont IVF; repeat BMP am. - Likely obstructive in nature. Parkinson disease - Severe. Cont carbidopa-levodopa at home dosing. Diabetes - Hold oral agents while inpatient - A1c 6.6 - DM diet - SSI deferred. POC glucoses <120 Hx of seizure disorder - cont keppra 500 BID. Paroxysmal atrial fibrillation - Cont eliquis 5mg BID. - Cont dofetilide BID. - No discrete PAF seen thus far. Hydronephrosis - outside CT scan dated 10/12/2020 with b/l hydronephrosis. - likely due to obstruction from BPH. FEN/GI: DM2 diet. LR 100mL/hr. DVT ppx: eliquis 5mg BID PT/OT evals pending code: DNR/DNI (2) BPH w urinary obs/LUTS: (3) Hematuria, gross: (4) Acute confusion: (5) Acute kidney injury: (6) Parkinson disease: (7) Diabetes: (8) Hx of seizure disorder: (9) Paroxysmal atrial fibrillation: Admission and Anticipated Discharge Date Admission Date: October 29, 2020 Supervising Physician Co-Signing Physician Notes I personally examined the patient and verified all [place] points of history and exam, discussed case, and agree with decision making with Dr Carrillo. seems to be feeling better vitals noted nad heent nc at mmm breathing unlabored no accessory muscles good effort skin no rashes no pallor or icterus complicated UTI w sepsis present on admission - continue ertapenem and follow. hopefully can get to rehab - stable when/if approved and accepted otherwise as above Subjective Eating breakfast. No complaints. Denies any pain, F/C, CP, SOB, abd/flank pain, urinary complaints. Has been voiding (per nurse, pink tinge). Nursing staff has been unable to place in catheter. Review of Systems Review of Systems: Constitutional: Denies fever, chills Cardiovascular: Denies chest pain Respiratory: Denies shortness of breath Gastrointestinal: Denies abdominal pain Genitourinary: Denies urinary symptoms including dysuria Physical Exam Physical Exam: General: Grossly A&O. Appears slow to respond/ tired. NAD. Cooperative. HEENT: Atraumatic, normocephalic. Pulm: CTAB. -wheezes, -rales, -rhonchi. No respiratory distress. Cardiac: RRR, -mrg. No LE edema Abdominal: Nontender, nondistended, soft. Results & Data Results & Data ([facility]) Vital Signs (Past 12 Hours) Vital Signs Temp Pulse Pulse Resp BP Pulse Ox 10/30/20 07:00 63 10/30/20 04:07 36.5 C 61 18 104/63 97 10/29/20 23:39 36.5 C 64 18 105/61 94 10/29/20 22:58 87 Resident Activity Tracking Resident Involvement: Resident Care Provided Care Provided: Adult Hospital Medicine (1) Diabetes Diabetes mellitus complication status: without complication Diabetes mellitus shelter insulin use: without terminal worker use Diabetes mellitus type: type 2 Qualified Code(s): E11.9 - Type 2 diabetes mellitus without complications
[2020-10-30] MEDS: CARBIDOPA/LEVODOPA 25/100MG TAB PO SCH ×3 (08:20→21:38)
[2020-10-30] MEDS: APIXABAN 5 MG TABLET PO SCH ×2 (08:20→21:37)
[2020-10-30] MEDS: DOFETILIDE 125 MCG CAPSULE PO SCH ×2 (08:21→21:37)
[2020-10-30] MEDS: levETIRAcetam 500 MG TAB PO SCH ×2 (08:21→21:37)
[2020-10-30 08:57] LABS: BUN Creatinine Ratio 16.8 (10-20); Calcium 9.1 mg/dl (8.5-10.1); Creatinine Clr Calc Pharmacy 62.9 ml/min; Est GFR (African American) 70.6; Est GFR (Non-African American) 60.9
[2020-10-30] MEDS: FINASTERIDE 5 MG TAB PO SCH (09:47)
[2020-10-30] MEDS: PANTOprazole 40 MG TAB PO SCH (09:47)
[2020-10-30] MEDS: TAMSULOSIN HCL 0.4 MG CAP PO SCH (09:47)
[2020-10-30] MEDS: ERTAPENEM SODIUM 1,000 MG in SODIUM CHLORIDE 0.9% 50 ML IV SCH (09:48)
[2020-10-30 09:54] LABS: Estimated Average Glucose 143 mg/dl; Hemoglobin A1C 6.6 % (4.5-5.6)
--- NOTE | 2020-10-30 11:45 | Urology Progress Note ---
Date of Service October 30, 2020 Assessment & Plan (1) BPH w urinary obs/LUTS: (2) Acute UTI: 69yo M with severe parkinsonism and dementia admitted with acute exacerbation of UTI symptoms and gross hematuria Hx of BPH w urinary obs/LUTS and recurrent UTI. Had cysto/Mascorro placement in office on 10/27. Mascorro then removed by patient/staff at custodial due to hematuria/concerns of clotting. -Remains afebrile -Labs reviewed, creatinine improved today -Hematuria likely r/t mascorro trauma (possible self removal by patient) or UTI - Continue to monitor -Voiding spontaneously, continue to hold off on catheter placement especially with possibility of patient dislodging or trying to self remove catheter. -May need Mascorro to be placed back if severe retention persists. -Bladder scan and straight cath prn -Continue finasteride & flomax -Recommend continue antibiotics and supportive care per primary team -Will continue to follow Admission and Anticipated Discharge Date Admission Date: October 29, 2020 Subjective 69yo M with severe parkinsonism and dementia admitted with acute exacerbation of UTI symptoms and gross hematuria Awake, sitting in chair at time of exam. Offers no complaints of pain or discomfort at this time. Denies fevers or chills. Tolerating diet, denies nausea or vomiting. Voiding spontaneously in urinal per nursing note, no hematuria noted. Denies dysuria. Chart review: Afebrile Wbc 12.91 (10/29) Hgb 10.9 (10/29) Cr 1.20 (10/30) Urine cx 10/27 - Klebsiella ESBL, continues on IV Ertapenem Exam limited due to mental status. Offered no additional complaints. Review of Systems Constitutional: as per Subjective / HPI Gastrointestinal: as per Subjective / HPI Genitourinary: + as per Subjective / HPI Physical Exam Constitutional: + altered mental status; no acute distress Respiratory: normal respiratory effort Cardiovascular: Extremities: no calf tenderness Gastrointestinal (Abdomen): Percussion/Palpation: abdomen soft; abdomen nontender and no guarding Musculoskeletal: Head/Neck/Chest: normocephalic Skin: Warm and dry No visible rashes or lesions. Neurologic: awake Psychiatric: Orientation: alert and oriented to person Results & Data ([facility]) Vital Signs (Past 12 Hours) Vital Signs Temp Pulse Pulse Resp BP Pulse Ox 10/30/20 11:34 36.6 C 69 16 99/60 L 94 10/30/20 07:37 36.4 C L 57 L 16 131/54 L 96 10/30/20 07:00 63 10/30/20 04:07 36.5 C 61 18 104/63 97 PG Care Time/CCT Total # of Minutes Spent Total Time Spent with Patient: Total time spent is greater than 50% in co ordination of care (as documented) at patient's floor/unit and/or counseling patient: Coding Level of Care Code 51062 Subseq Hosp Care Lvl 2 Diagnoses BPH w urinary obs/LUTS N40.1; N13.8 Acute UTI N39.0
--- NOTE | 2020-10-30 18:18 | Billing Data ---
Date of Service October 30, 2020 Coding Level of Care Code 99538 Subseq Hosp Care Lvl 3
[2020-10-31] MEDS: LACTATED RINGER'S 1,000 ML IV SCH ×3 (02:32→23:05)
[2020-10-31 06:14] LABS: Hematocrit (blood only) 29.9 % (42-52); Hemoglobin 9.8 g/dL (14.0-18.0); Mean Corpuscular Hemoglobin 26.6 pg (25-34); Mean Corpuscular Hgb Conc 32.8 g/dL (32-36); Mean Corpuscular Volume 81.3 fL (80-100); Mean Platelet Volume 10.3 fL (7.4-10.4); Platelet Count 261 K/uL (130-400); RDW Coefficient of Variation 15.4 % (11.5-14.5); Red Blood Count 3.68 M/uL (4.7-6.1)
--- NOTE | 2020-10-31 06:40 | Hospitalist Progress Note ---
Date of Service October 31, 2020 Assessment & Plan (1) Acute UTI: Mr. 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 On arrival to the ED, Mr. Porras met SIRS criteria (WBC > 12k, HR > 90bpm), and his urine culture from 10/27/20 returned growing ESBL Klebsiella. Stable. acute complicated (catheter-associated) urinary tract infection - on review of scanned documents, outside records indicate Mr. Porras had a urine culture from April 2020 + ESBL Klebsiella. - will place on contact precautions for ESBL hx - patient receive 1 liter of normal saline in ED. Will add 1 liter bolus of LR + continuous fluids at 100mls/hr - Rocephin (x 1 dose) ->meropenem (x 1 day) -> ertapenem (on 3nd day as of 10/31/20). - narrowed to ertapenem after discussion w/ pharmacy - leukocytosis improving. wbc 16.78 (10/28) ->12.9 (10/29) -> 4.5 (10/31). - considered prostatitis on pathogen because of recurrence of this presentation. SUZANNA deferred at this time, but will perform if symptoms do not improve - will check CBC w/ diff in AM BPH w urinary obs/LUTS Severe BPH. - b/l hydronephrosis likely 2nd to obstruction from BPH. - Cont finasteride & flomax. - May need mascorro to be placed back if severe retention persists. 10/31/20 doing well w/o mascorro. good uop. Hematuria, gross - By report - likely due to mascorro trauma (if patient removed catheter himself) and/or UTI and/or kidney stones. - 10/30/20 nursing noted slight pink tinge in urine - will follow clinical symptoms acute confusion - Metabolic encephalopathy likely 2nd UTI. - supportive care. - treat UTI. Acute kidney injury, resolved - Baseline Cr 1. Peak Cr 1.79. downtrendin10/29/20 1.57. 10/31/20 1.06 - Cont IVF; repeat BMP am. - Likely obstructive in nature. Parkinson disease - Severe. Cont carbidopa-levodopa at home dosing. Diabetes - Hold oral agents while inpatient - A1c 6.6 - DM diet - SSI deferred. POC glucoses <120 Hx of seizure disorder - cont keppra 500 BID. Paroxysmal atrial fibrillation - Cont eliquis 5mg BID. - Cont dofetilide BID. - <10 second run of PAT overnight 10/30-10/31 Hydronephrosis - outside CT scan dated 10/12/2020 with b/l hydronephrosis. - likely due to obstruction from BPH. FEN/GI: DM2 diet. LR 100mL/hr. DVT ppx: eliquis 5mg BID dispo: [facility] 11/01/20 code: DNR/DNI (2) BPH w urinary obs/LUTS: (3) Hematuria, gross: (4) Acute confusion: (5) Acute kidney injury: (6) Parkinson disease: (7) Diabetes: (8) Hx of seizure disorder: (9) Paroxysmal atrial fibrillation: Admission and Anticipated Discharge Date Admission Date: October 29, 2020 Supervising Physician Co-Signing Physician Notes I personally examined the patient and verified all [place] points of history and exam, discussed case, and agree with decision making with Dr Carrillo. for rehab hopefully tomorrow. no new issues otherwise today vitals noted nad heent nc at mmm breathing unlabored no accessory muscles good effort skin no rashes no pallor or icterus complicated UTI w sepsis present on admission - continue ertapenem and follow. anticipate rehab tomorrow. otherwise as above Subjective Doing well on room air. Denies pain or sob. No f/c, n/v, abd pain, cp, urinary symptoms, brody, numb/ting. No groin pain. Last bm yesterday. voiding spontaneously. Denies problems w/ eating. Denies gross hematuria. Review of Systems Review of Systems: Constitutional: Denies fever, chills Cardiovascular: Denies chest pain Respiratory: Denies shortness of breath Gastrointestinal: Denies abdominal pain, nausea, vomiting, constipation, diarrhea Genitourinary: Denies urinary symptoms including dysuria Neurological: Denies headache, numbness, tingling, focal weakness Physical Exam Physical Exam: General: Grossly A&O. NAD. Cooperative. HEENT: Atraumatic, normocephalic. Pulm: CTAB. -wheezes, -rales, -rhonchi. No respiratory distress. Cardiac: RRR, -mrg. Abdominal: Nontender, nondistended, soft. Results & Data Results & Data ([facility]) Vital Signs (Past 12 Hours) Vital Signs Temp Pulse Pulse Resp BP Pulse Ox 10/31/20 03:15 36.5 C 84 20 131/80 93 10/30/20 23:46 62 10/30/20 23:05 36.7 C 79 20 154/78 H 92 10/30/20 20:30 36.6 C 81 18 163/83 H 94 Resident Activity Tracking Resident Involvement: Resident Care Provided Care Provided: Adult Hospital Medicine (1) Diabetes Diabetes mellitus complication status: without complication Diabetes mellitus long filler cigar roller machine insulin use: without long filler cigar roller machine use Diabetes mellitus type: type 2 Qualified Code(s): E11.9 - Type 2 diabetes mellitus without complications
[2020-10-31 06:47] LABS: BUN Creatinine Ratio 17.5 (10-20); Creatinine Clr Calc Pharmacy 71.2 ml/min; Est GFR (Non-African American) 70.8; Potassium 3.9 mmol/L (3.5-5.1)
[2020-10-31] MEDS: FINASTERIDE 5 MG TAB PO SCH (08:30)
[2020-10-31] MEDS: TAMSULOSIN HCL 0.4 MG CAP PO SCH (08:30)
[2020-10-31] MEDS: PANTOprazole 40 MG TAB PO SCH (08:31)
[2020-10-31] MEDS: APIXABAN 5 MG TABLET PO SCH ×2 (08:31→22:15)
[2020-10-31] MEDS: DOFETILIDE 125 MCG CAPSULE PO SCH ×2 (08:32→22:15)
[2020-10-31] MEDS: levETIRAcetam 500 MG TAB PO SCH ×2 (08:32→22:15)
[2020-10-31] MEDS: CARBIDOPA/LEVODOPA 25/100MG TAB PO SCH ×3 (08:33→22:15)
[2020-10-31] MEDS: ERTAPENEM SODIUM 1,000 MG in SODIUM CHLORIDE 0.9% 50 ML IV SCH (10:26)
--- NOTE | 2020-10-31 11:00 | Urology Progress Note ---
Date of Service October 31, 2020 Assessment & Plan (1) Acute UTI: 69yo M with severe parkinsonism and dementia admitted with acute exacerbation of UTI symptoms and gross hematuria Pt with known hx of BPH w urinary obs/LUTS, recurrent UTI, and incomplete bladder emptying. Had recent cysto/Mascorro placement in office. Mascorro [facility] to hematuria/concerns of clotting. -He is afebrile -Labs reviewed, creatinine remains stable -Hematuria resolved per nursing note, was likely r/t mascorro trauma (possible self removal by patient) or UTI -Continue to monitor -Continue to monitor patients ability to spontaneously void -May need Mascorro to be placed back if severe retention persists. -Continue finasteride & flomax -Continue antibiotics and supportive care per primary team -Recommend a total of 10-14 days of Ertapenem given Klebsiella pneumoniae ESBL positive culture -Patient to have outpatient f/u with urology on 11/07/[address] Zhou. -Thank you for allowing us to participate in the acute care of Mr. Porras. Please reconsult us with additional questions, concerns or changes in patient status. Admission and Anticipated Discharge Date Admission Date: October 29, 2020 Subjective Awake, sitting in chair at time of exam. Denies any pain/discomfort at this time. Denies fevers or chills. Tolerating diet, no nausea or vomiting. Voiding spontaneously in urinal. Denies hematuria/dysuria. Feels he is emptying his bladder. Chart review: Afebrile Wbc 4.50 Hgb 9.8 Cr 1.06 Urine cx 10/27 - Klebsiella ESBL, continues on IV Ertapenem Offers no additional complaints today Review of Systems Constitutional: as per Subjective / HPI Gastrointestinal: as per Subjective / HPI Genitourinary: + as per Subjective / HPI Physical Exam Constitutional: comfortable; no acute distress Respiratory: normal respiratory effort; no labored breathing Cardiovascular: Extremities: no calf tenderness Gastrointestinal (Abdomen): Percussion/Palpation: abdomen soft; abdomen nontender and no guarding Skin: Warm and dry No visible rashes or lesions. Neurologic: awake Psychiatric: Orientation: alert, oriented to person and oriented to place Results & Data ([facility]) Vital Signs (Past 12 Hours) Vital Signs Temp Pulse Pulse Resp BP Pulse Ox 10/31/20 07:47 36.5 C 56 L 16 143/74 H 97 10/31/20 07:36 51 L 10/31/20 03:15 36.5 C 84 20 131/80 93 10/30/20 23:46 62 10/30/20 23:05 36.7 C 79 20 154/78 H 92 PG Care Time/CCT Total # of Minutes Spent Total Time Spent with Patient: Total time spent is greater than 50% in coordination of care (as documented) at patient's floor/unit and/or counseling patient: Coding Level of Care Code 06423 Subseq Hosp Care Lvl 2 Diagnoses Acute UTI N39.0
--- NOTE | 2020-10-31 19:19 | Billing Data ---
Date of Service October 31, 2020 Coding Level of Care Code 29198 Subseq Hosp Care Lvl 2
--- NOTE | 2020-11-01 07:49 | Hospitalist Progress Note ---
Date of Service November 01, 2020 Assessment & Plan (1) Acute UTI: Mr. 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 On arrival to the ED, Mr. Porras met SIRS criteria (WBC > 12k, HR > 90bpm), and his urine culture from 10/27/20 returned growing ESBL Klebsiella. Stable. acute complicated (catheter-associated) urinary tract infection - on review of scanned documents, outside records indicate Mr. Porras had a urine culture from April 2020 + ESBL Klebsiella. - will place on contact precautions for ESBL hx - patient receive 1 liter of normal saline in ED. Will add 1 liter bolus of LR + continuous fluids at 100mls/hr - Rocephin (x 1 dose) ->meropenem (x 1 day) -> ertapenem (on 3nd day as of 10/31/20). - narrowed to ertapenem after discussion w/ pharmacy - leukocytosis improving. wbc 16.78 (10/28) ->12.9 (10/29) -> 4.5 (10/31). - considered prostatitis on pathogen because of recurrence of this presentation. SUZANNA deferred at this time, but will perform if symptoms do not improve - will check CBC w/ diff in AM BPH w urinary obs/LUTS Severe BPH. - b/l hydronephrosis likely 2nd to obstruction from BPH. - Cont finasteride & flomax. - May need mascorro to be placed back if severe retention persists. 10/31/20 doing well w/o mascorro. good uop. Hematuria, gross - By report - likely due to mascorro trauma (if patient removed catheter himself) and/or UTI and/or kidney stones. - 10/30/20 nursing noted slight pink tinge in urine - will follow clinical symptoms acute confusion - Metabolic encephalopathy likely 2nd UTI. - supportive care. - treat UTI. Acute kidney injury, resolved - Baseline Cr 1. Peak Cr 1.79. downtrendin10/29/20 1.57. 10/31/20 1.06 - Cont IVF; repeat BMP am. - Likely obstructive in nature. Parkinson disease - Severe. Cont carbidopa-levodopa at home dosing. Diabetes - Hold oral agents while inpatient - A1c 6.6 - DM diet - SSI deferred. POC glucoses <120 Hx of seizure disorder - cont keppra 500 BID. Paroxysmal atrial fibrillation - Cont eliquis 5mg BID. - Cont dofetilide BID. - <10 second run of PAT overnight 10/30-10/31 Hydronephrosis - outside CT scan dated 10/12/2020 with b/l hydronephrosis. - likely due to obstruction from BPH. FEN/GI: DM2 diet. LR 100mL/hr. DVT ppx: eliquis 5mg BID dispo: [facility] 11/01/20 code: DNR/DNI (2) BPH w urinary obs/LUTS: (3) Hematuria, gross: (4) Acute confusion: (5) Acute kidney injury: (6) Parkinson disease: (7) Diabetes: (8) Hx of seizure disorder: (9) Paroxysmal atrial fibrillation: Admission and Anticipated Discharge Date Admission Date: October 29, 2020 Subjective No complaints. Eating breakfast. Denies f/c, cp/osb, brody, dizziness, n/v, constipation/diarrhea, urinary symptoms. No hematuria or dysuria. Review of Systems Review of Systems: Constitutional: Denies fever, chills Cardiovascular: Denies chest pain Respiratory: Denies shortness of breath Gastrointestinal: Denies abdominal pain, nausea, vomiting, constipation, diarrhea Genitourinary: Denies urinary symptoms including dysuria Neurological: Denies headache, numbness, tingling Physical Exam Physical Exam: General: Grossly A&O. NAD. Cooperative. HEENT: Atraumatic, normocephalic. Pulm: CTAB. -wheezes, -rales, -rhonchi. No respiratory distress. Cardiac: RRR, -mrg. No LE edema. Abdominal: Nontender, nondistended, soft. Results & Data Results & Data ([facility]) Vital Signs (Past 12 Hours) Vital Signs Temp Pulse Pulse Resp BP BP Pulse Ox 11/01/20 07:20 56 L 11/01/20 06:56 36.4 C L 63 18 164/80 H 98 11/01/20 03:45 70 11/01/20 03:36 36.5 C 60 18 142/77 H 94 10/31/20 23:10 36.5 C 55 L 18 145/75 H 96 10/31/20 19:54 36.2 C L 74 18 173/88 H 93 (1) Diabetes Diabetes mellitus type: type 2 Diabetes mellitus prison insulin use: without bed bug exterminator use Diabetes mellitus complication status: without complication Qualified Code(s): E11.9 - Type 2 diabetes mellitus without complications
[2020-11-01 07:52] LABS: Hematocrit (blood only) 29.9 % (42-52); Hemoglobin 9.8 g/dL (14.0-18.0); Mean Corpuscular Hemoglobin 26.6 pg (25-34); Mean Corpuscular Hgb Conc 32.8 g/dL (32-36); Mean Corpuscular Volume 81.3 fL (80-100); Mean Platelet Volume 9.7 fL (7.4-10.4); Platelet Count 268 K/uL (130-400); RDW Standard Deviation 44.8 fL (36.4-46.3); Red Blood Count 3.68 M/uL (4.7-6.1); White Blood Count 3.51 K/uL (4.8-10.8)
[2020-11-01 08:16] LABS: Calcium 9.5 mg/dl (8.5-10.1); Creatinine Clr Calc Pharmacy 68.6 ml/min; Est GFR (African American) 78.4; Est GFR (Non-African American) 67.7; Potassium 3.9 mmol/L (3.5-5.1)
[2020-11-01] MEDS: LACTATED RINGER'S 1,000 ML IV SCH (09:10)
[2020-11-01] MEDS: TAMSULOSIN HCL 0.4 MG CAP PO SCH (09:45)
[2020-11-01] MEDS: PANTOprazole 40 MG TAB PO SCH (09:45)
[2020-11-01] MEDS: levETIRAcetam 500 MG TAB PO SCH (09:45)
[2020-11-01] MEDS: APIXABAN 5 MG TABLET PO SCH (09:45)
[2020-11-01] MEDS: ERTAPENEM SODIUM 1,000 MG in SODIUM CHLORIDE 0.9% 50 ML IV SCH (09:46)
[2020-11-01] MEDS: DOFETILIDE 125 MCG CAPSULE PO SCH (09:46)
[2020-11-01] MEDS: FINASTERIDE 5 MG TAB PO SCH (09:46)
[2020-11-01] MEDS: CARBIDOPA/LEVODOPA 25/100MG TAB PO SCH ×2 (09:46→14:56)
--- NOTE | 2020-11-01 17:50 | Discharge Summary ---
Date of Service November 01, 2020 Admission HPI Per Admitting Provider Mr. Porras is a 69 yo gentleman with a PMHx of BPH with urinary retention and recurrent UTIs who was admitted today from his rehab facility after removal of a Mascorro catheter. Of note, yesterday (10/27/20) Mr. Porras had an in-office cystoscopy performed by Dr. Julio C Zhou, at which time a urinary catheter was placed. It appears as though Mr. Porras has prostatomegaly, which is causing incomplete bladder voiding and subsequent UTIs. Dr. Zhou recommend consideration of a prostate de-bulking procedure in the near future, and started Mr. Porras on finasteride in the interim. At the time of his office visit with Dr. Zhou yesterday, a urine culture was obtained. Mr. Porras's reports that she was contacted by the staff at his rehab facility today, who reported they removed his mascorro catheter 'because it kept clotting up.' Mr. Porras is on chronic anticoagulation with Eliquis for paroxysmal atrial fibrillation. On arrival to the ED, Mr. Porras was lethargic; he was afebrile and mildly tachycardic to 108 bpm. His WBC was elevated to 16 with neutrophil predominance. Urine culture from 10/27/20 showed growth of gram - bacilli. His Cr was elevated to 1.74 (up from 1.3 in 08/2020), and BUN was mildly elevated to 23. COVID 19 negative. He was given 1 liter of normal saline and 1 dose of IV Rocephin. Nursing staff attempted to re-place mascorro catheter but was unable. Principal Diagnosis complicated UTI Discharge Exam pleasant nad heent nc at mmm breathing unlabored no accessory muscles good effort skin no rashes no pallor or icterus neuro no focal deficits Discharge Data Allergies Allergy/AdvReac Type Severity Reaction Status Date / Time ciprofloxacin [From Cipro] Allergy Unknown Verified 10/28/20 20:51 Consultations 10/28/20 23:18 Consult Urology Routine Hospital Course (1) Acute UTI: (1) Acute UTI: Mr. 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 On arrival to the ED, Mr. Porras met SIRS criteria (WBC > 12k, HR > 90bpm), and his urine culture from 10/27/20 returned growing ESBL Klebsiella. Stable. acute complicated (catheter-associated) urinary tract infection - on review of scanned documents, outside records indicate Mr. Porras had a urine culture from April 2020 + ESBL Klebsiella. - will place on contact precautions for ESBL hx - patient receive 1 liter of normal saline in ED. Will add 1 liter bolus of LR + continuous fluids at 100mls/hr - Rocephin (x 1 dose) ->meropenem (x 1 day) -> ertapenem (on 3nd day as of 10/31/20). - narrowed to ertapenem after discussion w/ pharmacy -improved, stable for trasnfer to rehab - finish out course of ertapenem. PCP and urology f/u BPH w urinary obs/LUTS Severe BPH. - b/l hydronephrosis likely 2nd to obstruction from BPH. - Cont finasteride & flomax. - May need mascorro to be placed back if severe retention persists - but hasn't needed for days - outpt PCP and urology f/u Hematuria, gross - By report - likely due to mascorro trauma (if patient removed catheter himself) and/or UTI and/or kidney stones. - 10/30/20 nursing noted slight pink tinge in urine - will follow clinical symptoms, urology as above acute confusion - Metabolic encephalopathy likely 2nd UTI. - supportive care. - treat UTI. Acute kidney injury, resolved - Baseline Cr 1. Peak Cr 1.79. downtrendin10/29/20 1.57. 10/31/20 1.06 - follow periodic BMP as outpt - Likely obstructive in nature. Parkinson disease - Severe. Cont carbidopa-levodopa at home dosing. - PT/OT will be helpful Diabetes - A1c 6.6 - stable for transfer in this regard Hx of seizure disorder - cont keppra 500 BID. Paroxysmal atrial fibrillation - Cont eliquis 5mg BID. - Cont dofetilide BID. - <10 second run of PAT overnight 10/30-10/31 Hydronephrosis - outside CT scan dated 10/12/2020 with b/l hydronephrosis. - likely due to obstruction from BPH. DVT ppx: eliquis 5mg BID dispo: [facility] 11/01/20 code: DNR/DNI (2) BPH w urinary obs/LUTS: (3) Hematuria, gross: (4) Acute confusion: (5) Acute kidney injury: (6) Parkinson disease: (7) Diabetes: (8) Hx of seizure disorder: (9) Paroxysmal atrial fibrillation: Total Time Total Time Spent Total Time Spent (In Minutes): <30 Discharge Plan Discharge Items Patient Disposition: Transfer Inpatient Rehab Fac Reason For Visit: UTI Discharge Diagnosis: acute complicated (catheter-associated) urinary tract infection Activity: Per Instructions section Non-emergency contact: Primary Care Provider and Urologist Call non-emergency contact if: you have any medication questions, your pain is not controlled and you have a fever Follow-up/Referrals: Julio C Zhou DO [Physician] - (11/07/20 follow up apt per urology note. ) Kostas Hannah [Primary Care Provider] - (1-2 wks) Diet: Regular Addtl Attending Provider Instructions: Mr. Porras is a 69 yo M with a PMHx of BPH with urinary retention and recurrent UTIs who was admitted to [facility] 10/28/20-11/01/20 for UTI and mascorro catheter issues. 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 On arrival to the ED, Mr. Porras met SIRS criteria (WBC > 12k, HR > 90bpm), and his urine culture from 10/27/20 returned growing ESBL Klebsiella. Stable. outpatient urology f/u w/ Dr. Zhou on 11/07/20. call [phone] to confirm. PCP f/u 1-2 wks - 10 more days of ertapenem after hospital discharge- ending 11/11/20 -if staying in rehab longer than this course, reassess need to extend course based on pt sxs and UA. notes pt gets frequent UTI's once off IV antibiotics acute complicated (catheter-associated) urinary tract infection - on review of scanned documents, outside records indicate Mr. Porras had a urine culture from April 2020 + ESBL Klebsiella. - Rocephin (x 1 dose) ->meropenem (x 1 dose) -> ertapenem (on 3nd day as of 10/31). 10 more days of ertapenem - narrowed to ertapenem after discussion w/ pharmacy - leukocytosis resolved - considered prostatitis on pathogen because of recurrence of this presentation. SUZANNA deferred as patient did not complain of groin or perineal pain BPH w urinary obs/LUTS Severe BPH. - b/l hydronephrosis likely 2nd to obstruction from BPH. - Cont finasteride (new med) & flomax. - May need mascorro to be placed back if severe retention persists. patient did well w/o fully this admission Hematuria, gross - By report - likely due to mascorro trauma (if patient removed catheter himself) and/or UTI and/or kidney stones. - resolved acute confusion - Metabolic encephalopathy likely 2nd UTI. - UTI treatment as per above Acute kidney injury, resolved - Baseline Cr 1. Peak Cr 1.79. downtrendin10/29/20 1.57. 10/31/20 1.06 - Cont IVF; repeat BMP am. - Likely obstructive in nature. Parkinson disease - Severe. Cont carbidopa-levodopa at home dosing. Diabetes - restart home meds Hx of seizure disorder - cont keppra 500 BID. Paroxysmal atrial fibrillation - Cont eliquis 5mg BID. - Cont dofetilide BID. - <10 second run of PAT overnight 10/30-10/31 Hydronephrosis - outside CT scan dated 10/12/2020 with b/l hydronephrosis. - likely due to obstruction from BPH. DVT ppx: eliquis 5mg BID code: DNR/DNI Pending Studies at Discharge: No Stand-Alone Forms: My [facility] Skilled Items Patient informed of condition?: Yes DNR: Yes Discharge Level of Care: Skilled Communicable Disease: No Discharge Prognosis: Stable Lines: US Guided Peripheral IV Urinary Catheter: No Medications and DC Order Prescriptions: New finasteride 5 mg tablet 5 mg PO DAILY Qty: 30 RF: 0 ertapenem 1 gram recon soln 1 g IV DAILY 10 Days RF: 0 Continued levetiracetam [Keppra] 500 mg Tablet 500 mg PO BID RF: 0 metformin 1,000 mg Tablet 1,000 mg PO BID RF: 0 tamsulosin 0.4 mg Capsule 0.4 mg PO DAILY RF: 0 carbidopa-levodopa 25-100 mg tablet 1 tab PO TID RF: 0 cranberry 500 mg Capsule 500 mg PO DAILY RF: 0 acetaminophen [Tylenol Extra Strength] 500 mg Tablet 500 mg PO Q6H PRN (Reason: Mild Pain (Scale Score 1-4)) RF: 0 cholecalciferol (vitamin D3) [Vitamin D3] 2,000 unit Tablet 2,000 unit PO DAILY RF: 0 cyanocobalamin (vitamin B-12) 1,000 mcg Tablet 1,000 mcg PO DAILY RF: 0 dofetilide 125 mcg capsule 250 mcg PO BID RF: 0 aspirin 81 mg Tablet,Delayed Release (Dr/Ec) 81 mg PO DAILY RF: 0 methenamine hippurate 1 gram tablet 1 g PO BID RF: 0 magnesium hydroxide [Milk of Magnesia] 400 mg/5 mL Suspension 30 ml PO UD PRN (Reason: Constipation) RF: 0 ascorbic acid (vitamin C) [Vitamin C] 500 mg Tablet 500 mg PO DAILY RF: 0 glipizide 2.5 mg tablet extended release 24hr 2.5 mg PO DAILY RF: 0 bisacodyl [Dulcolax (bisacodyl)] 10 mg Suppository 10 mg OH DAILY PRN (Reason: Constipation) RF: 0 pantoprazole 40 mg tablet,delayed release (DR/EC) 40 mg PO DAILY RF: 0 garlic Tablet 0 mg PO DAILY RF: 0 nitrofurantoin monohyd/m-cryst [Macrobid] 100 mg Capsule 100 mg PO BID RF: 0 acetaminophen [Tylenol] 325 mg Capsule 650 mg PO Q4 PRN (Reason: Fever Or Pain) RF: 0 Eliquis 5 mg tablet 5 mg PO BID RF: 0 Discharge Orders: Discharge Order (Routine); Ordered 11/01/20 Ordered By: Rudy Katz/Other Patient Handouts: Managing Type 2 Diabetes Admission Data Admit Date/Time: 10/29/20 13:03 Attending Provider: Cooper Vega Admit Provider: Stacie Miller Primary Care Provider: Kostas Hannah Other Providers: Julio C Zhou ; Arpan Carrillo ; Kvng De Santiago Other Interventions: Discharge Summary Assessment (RN) Last Done: 11/01/20 16:09 Coding Level of Care Code D/C Day Management <30 mins Diagnoses Acute UTI N39.0
--- NOTE | 2020-11-13 12:07 | Coding Query ---
To promote full compliance with coding requirements relating to patient care, provider participation is requested in all cases of smoke room operator uncertainty. Please assist us with the question(s) below: Coding Question(s): The diagnosis below was documented in the Progress Notes 10/30 and 10/31, then subsequently fell off all further documentation. Please indicate if it is still a possible diagnosis or ruled out. Physician's Response(s): SEPSIS (there is documentation in Progress Notes 10/30 & 10/31 of, "complicated UTI w sepsis present on admission - continue ertapenem and follow", however, there is no documentatin on the 11/01 Discharge Summary) ( x ) Diagnosed and POA ( ) Diagnosed and not POA ( ) Ruled out ( ) Other (please specify) MTDD
--- NOTE | 2020-11-13 12:08 | Coding Query ---
CODING QUERY To promote full compliance with coding requirements relating to patient care, provider participation is requested in all cases of medical biller coder uncertainty. Please assist us with the question(s) below: In the record, it states that the patient has Complicated UTI. Documentation states "catheter-associated". Please clarify below the cause of the UTI if applicable. Thank you. ( ) The chronic mascorro was the cause of the UTI. ( ) Other urinary cath/device was the cause of the UTI. ( x ) UTI, unspecified cause. ( ) Self-catheterization was the cause of the UTI. ( ) Other (Specify): Principal Diagnosis: "that condition established after study, to be chiefly responsible for occasioning the admission of the patient to the hospital for care." Co-Existing Principal Diagnosis: "when two or more diagnoses equally meet the criteria for principal diagnosis as determined by the circumstances of admission, diagnostic work up, and/or therapy provided, and the Alphabetic Index, Tabular List, or another coding guideline does not provide sequencing direction, any one of the diagnoses may be sequenced first." "When the physician has documented what appears to be a current diagnosis in the body of the record, but has not included the diagnosis in the final diagnostic statement, the physician should be asked whether the diagnosis should be added." (Source Coding [facility] 2 QTR90. p3-4) CHRISTOPHER
== END 2020-11-01 19:30 | DRG 871 ==
LOC: 3N 18:09 → ED 18:09 → SUATTDRO 21:24 → 3N 22:51 → 2W 10-29 01:32 → SUATTDRO 10-29 13:03

== ENCOUNTER 2020-11-20 10:47 | Inpatient (IN) ==
--- NOTE | 2020-11-13 10:09 | Anesthesiology Consultation ---
Date of Service November 13, 2020 Assessment & Plan (1) Encounter for pre-operative examination: Chart Review Chart Review: Acceptable Risk for Surgery (pending preop Covid testings results and DOS CBC with diff, EKG, and anesthesia evaluation ) and Patient NOT seen in Pre Admission Testing - Will repeat CBC with diff stat AM of surgery secondary to leukopenia and anemia while pt admitted in Oct 2020. Also spoke to Dr. Multani re: EKG (done in ER before patient admitted for complicated UTI)- possible lead placement for septal infarct- per Dr. Multani- will repeat AM of surgery and functional status evaluated by anesthesia. - Check BSG AM DOS Per nursing assessment to 11/13/2020, pt is being discharged from [facility] in [place] today (11/13/20). Pt did get Covid tested upon arrival to facility and was negative. Pt also had negative rapid [place] Covid test in ER on 10/28/20 prior to admission to [facility]. Pt did test Covid positive in Aug 2020. No known Covid positive contacts or Covid related symptoms. Pt scheduled for preop Covid testing 11/16/20 at [facility] facility= will await results. Pt admitted to [facility] from 10/28/20-11/01/20= patient admitted for complicated UTI. Patient was admitted from rehab facility after removal of Borrego catheter. Patient presented to ED with lethargy, mild tachycardia. Elevated WBC. Patient found to have acute UTI. Treated with antibiotics. His status improved and he was stable for transfer back to rehab. BPHsevere, bilateral hydronephrosis likely secondary to obstruction from BPH. Continue current meds. Hematurialikely due to Borrego trauma. Acute confusionmetabolic encephalopathy likely secondary to UTIsupportive care and treat UTI. Acute kidney injuryresolved. Parkinson's diseasesevere, continue current medication. Diabetes stable. Seizure disorderstable continue Keppra. Paroxysmal A. fibcontinue current meds. History Surgery Operation Date: 11/20/20 11:40 Proposed Procedures p Transurethral Resection Prostate - Julio C Zhou, Height/Weight Height: 6 ft Weight: 80.286 kg Allergies Allergy/AdvReac Type Severity Reaction Status Date / Time ciprofloxacin [From Cipro] Allergy Unknown Unknown Verified 11/13/20 09:02 Medications Home Medications Medication Instructions Recorded Confirmed Last Taken acetaminophen [Tylenol Extra 500 mg PO Q6H PRN 04/12/19 11/13/20 Unknown Strength] carbidopa-levodopa 1 tab PO TID 04/12/19 11/13/20 08/30/19 15:00 cranberry 500 mg PO QAM 04/12/19 11/13/20 Unknown levetiracetam [Keppra] 500 mg PO BID 04/12/19 11/13/20 08/30/19 15:00 metformin 1,000 mg PO BID 04/12/19 11/13/20 08/30/19 15:00 tamsulosin 0.4 mg PO BID 04/12/19 11/13/20 Unknown cholecalciferol (vitamin D3) 2,000 unit PO QAM 08/30/19 11/13/20 Unknown [Vitamin D3] Eliquis 5 mg PO BID 10/28/20 11/13/20 Unknown acetaminophen [Tylenol] 650 mg PO Q4 PRN 10/28/20 11/13/20 Unknown ascorbic acid (vitamin C) [Vitamin 500 mg PO BID 10/28/20 11/13/20 Unknown C] aspirin 81 mg PO QAM 10/28/20 11/13/20 Unknown bisacodyl [Dulcolax (bisacodyl)] 10 mg OR DAILY PRN 10/28/20 11/13/20 Unknown cyanocobalamin (vitamin B-12) 1,000 mcg PO QAM 10/28/20 11/13/20 Unknown dofetilide 250 mcg PO BID 10/28/20 11/13/20 Unknown garlic 1 mg PO DAILY 10/28/20 11/13/20 Unknown glipizide 2.5 mg PO BID 10/28/20 11/13/20 Unknown magnesium hydroxide [Milk of 30 ml PO UD PRN 10/28/20 11/13/20 Unknown Magnesia] methenamine hippurate 1 g PO BID 10/28/20 11/13/20 Unknown pantoprazole 40 mg PO QAM 10/28/20 11/13/20 Unknown finasteride 5 mg PO DAILY #30 tab 11/01/20 11/13/20 Unknown Past Medical History Medical History Acute confusion "Metabolic encephalopathy likely secondary to UTI.. Treat UTI" per discharge summary from 11/02/20 BPH w urinary obs/LUTS Dementia just related to UTI's > no dementia Diabetes NIDDM HTN (hypertension) Hx of seizure disorder Per records- patient on Keppra. Per nursing assessment- unsure why this is on record- no known recent seizures Kidney stones Parkinson disease Just fine tremor per nursing assessment "Severe" per 11/02/20 discharge summary Paroxysmal atrial fibrillation dx 1 yrs ago> Eliquis> no pacer> follows Dr. Sanz in [place] Past Family History Family History Mother Diabetes Other No pertinent family history in first degree relatives Past Surgical History Surgical History History of cataract surgery bilat History of cystoscopy History of tooth extraction Social History Smoking Status: Never smoker Do You Dip or Chew Tobacco: No Hx Alcohol Use: Yes Alcohol type: beer alcohol intake frequency: holidays/special occasions only Hx Substance Use: No substance use type: does not use Testing Laboratory Results Laboratory Tests 10/30/20 11/01/20 11/01/20 07:38 07:27 07:27 WBC 3.51 L Hgb 9.8 L Hct 29.9 L Plt Count 268 Sodium 141 Potassium 3.9 Chloride 108 H Carbon Dioxide 28 BUN 13 Creatinine 1.10 Glucose 118 H Hemoglobin A1c 6.6 H Anemia noted while patient admitted- was having hematuria Electrocardiogram Date: 10/28/20 Findings: + ST @ (121 bpm) Poor data quality Left anterior fascicular block. Septal infarct, age undetermined. Chest X-Ray Date: 10/12/20 Single view chest x-ray Aortic calcification. Stable cardiomegaly without pulmonary vascular congestion. No effusion, consolidation, or pneumothorax is seen.
[~2020-11-20 10:47] MED LIST: LR 15ML/HR IV SCH; ceFAZolin 2000MG 2,000 MG/15 ML SYR IV SCH
--- NOTE | 2020-11-20 11:37 | History & Physical Bridge Note ---
Date of Service November 20, 2020 History & Physical Bridge Note I have examined the patient, reviewed the History & Physical and in the interval since the performance of the History & Physical I have noted the following changes of clinical significance: no changes noted
[2020-11-20] MEDS ORDERED: LIDOCAINE HCL 2% 2 ML VIAL/AMP(20MG/ML) INFIL ONE ×2 (12:11→13:09)
[2020-11-20] MEDS ORDERED: ONDANSETRON INJ 2 MG/ML 2 ML VIAL ONE (12:11)
[2020-11-20] MEDS ORDERED: fentaNYL citrate 100 MCG/2 ML VIAL ONE (12:11)
[2020-11-20] MEDS ORDERED: DEXAMETHASONE SOD INJ 4 MG/ML VIAL ONE (12:11)
[2020-11-20] MEDS ORDERED: PROPOFOL IV EMULSION 10 MG/ML 20 ML VIAL IV ONE (12:11)
[2020-11-20] MEDS ORDERED: ATROPINE SULFATE 0.1 MG/ML 10ML SYR IV PRN (12:29)
[2020-11-20] MEDS ORDERED: ePHEDrine sulfate 50 MG/ML AMP IV PRN (12:29)
[2020-11-20] MEDS ORDERED: fentaNYL citrate 100 MCG/2 ML VIAL IV PRN (12:29)
[2020-11-20] MEDS ORDERED: ONDANSETRON INJ 2 MG/ML 2 ML VIAL IV PRN ×2 (12:29→16:29)
--- NOTE | 2020-11-20 12:56 | History & Physical Report ---
Date of Service November 20, 2020 Assessment & Plan (1) Hematuria, gross: Significant issues due to over distention of bladder with significant obstructive issues from prostate enlargement as well as exacerbation of urinary issues because of parkinsonism. Patient has considered different options. Patient's and him have consider these options. Has had multiple UTIs due to obstructive issues. Is interested in proceeding with option for reduction in opening of prostate to allow better voiding. Risks and benefits discussed at length for procedure. These include bleeding, infection, injury to surrounding tissues or organs, and risks associated with anesthesia. Patient states understanding and agrees to proceed. Will sign consent and proceed. Plan for transurethral resection of prostate with observation afterwards. Patient has significant issues with complicated UTIs. Will utilize broad- spectrum antibiotics. Patient and family do understand risk of possible leakage issues with resection of prostate in a person with neurogenic related bladder and prostate issues. Due to the severity of the infections as well as the major issues related to retention they have understood and weighed the risks and benefits and are interested in proceeding. (2) Hydronephrosis: (3) BPH w urinary obs/LUTS: History of Present Illness Primary Care Provider: Kostas Hannah Patient here for procedure. No changes in medical issues. No major changes in urinary issues. Continued issues and concerns. No change in pain or discomfort. No severe fevers or chills. No chest pain or shortness of breath. Risks and benefits discussed at length for procedure. These include bleeding, infection, injury to surrounding tissues or organs, and risks associated with anesthesia. Patient and/or family states understanding and agrees to proceed. Consent and supporting information completed. Allergies Allergy/AdvReac Type Severity Reaction Status Date / Time ciprofloxacin [From Cipro] Allergy Unknown Unknown Verified 11/20/20 11:21 Home Medications Medication Instructions Recorded Confirmed Type acetaminophen [Tylenol Extra 500 mg PO Q6H PRN 04/12/19 11/20/20 History Strength] carbidopa-levodopa [Sinemet] 1 tab PO TID 04/12/19 11/20/20 History cranberry 500 mg PO QAM 04/12/19 11/20/20 History levetiracetam [Keppra] 500 mg PO BID 04/12/19 11/20/20 History metformin 1,000 mg PO BID 04/12/19 11/20/20 History tamsulosin 0.4 mg PO BID 04/12/19 11/20/20 History cholecalciferol (vitamin D3) 2,000 unit PO QAM 08/30/19 11/20/20 History [Vitamin D3] Eliquis 5 mg PO BID 10/28/20 11/20/20 History acetaminophen [Tylenol] 650 mg PO Q4 PRN 10/28/20 11/20/20 History ascorbic acid (vitamin C) [Vitamin 500 mg PO BID 10/28/20 11/20/20 History C] aspirin 81 mg PO QAM 10/28/20 11/20/20 History bisacodyl [Dulcolax (bisacodyl)] 10 mg NM DAILY PRN 10/28/20 11/20/20 History cyanocobalamin (vitamin B-12) 1,000 mcg PO QAM 10/28/20 11/20/20 History dofetilide 250 mcg PO BID 10/28/20 11/20/20 History garlic 1 mg PO DAILY 10/28/20 11/20/20 History glipizide 2.5 mg PO BID 10/28/20 11/20/20 History magnesium hydroxide [Milk of 30 ml PO UD PRN 10/28/20 11/20/20 History Magnesia] methenamine hippurate 1 g PO BID 10/28/20 11/20/20 History pantoprazole 40 mg PO QAM 10/28/20 11/20/20 History finasteride 5 mg PO DAILY #30 tab 11/01/20 11/20/20 Rx levofloxacin 500 mg tablet 500 mg PO DAILY 5 Days #5 tab 11/17/20 11/20/20 Rx Past Med/Surg History Medical History Acute confusion "Metabolic encephalopathy likely secondary to UTI.. Treat UTI" per discharge summary from 11/02/20 BPH w urinary obs/LUTS Dementia just related to UTI's > no dementia Diabetes NIDDM HTN (hypertension) Hx of seizure disorder Per records- patient on Keppra. Per nursing assessment- unsure why this is on record- no known recent seizures Kidney stones Parkinson disease Just fine tremor per nursing assessment "Severe" per 11/02/20 discharge summary Paroxysmal atrial fibrillation dx 1 yrs ago> Eliquis> no pacer> follows Dr. Sanz in [place] Surgical History History of cataract surgery bilat History of cystoscopy History of tooth extraction Family History Mother Diabetes Other No pertinent family history in first degree relatives Social History Smoking Status: Never smoker Second Hand Exposure: No; Do You Dip or Chew Tobacco: No; Tobacco Cessation Education Requested by Patient: No Hx Alcohol Use: Yes Alcohol type: beer Hx Substance Use: No Preferred Language: Pashto Communication Ability: Effective Cath Lab Manager Required: No Beliefs That Will Affect Care: None marital status: Current Living Situation: Spouse Current Living Situation Comment: normally with spouse at home Other Information That Helps Us Care for You: No Feels Safe at Home: Yes Safety Concerns: Feels Safe At This Time Assistive Devices: Cane, Glasses and Walker Review of Systems All systems reviewed & are unremarkable except as noted in HPI & below Physical Exam Physical Exam: General: Alert/Arousable. No Acute illness. Parkinsonism. Advanced age. HEENT: Inspection normal. Normal inspection of face. Normal inspection of neck. Psychologic: Normal affect/No change in mentation. Respiratory: No use of accessory muscles. No respiratory changes or exacerbation or changes with tachypnea or dyspnea. Cardiovascular: No tachycardia Skin: Maud and Dry. No new rashes or visible lesions. Slow gait. Abdomen: Normal inspection. No guarding. Results & Data ([facility]) Vital Signs (Past 12 Hours) Vital Signs Temp Pulse Resp BP Pulse Ox 11/20/20 11:27 36.5 C 83 18 104/61 97 PG Care Time/CCT Total # of Minutes Spent Total Time Spent with Patient: Total time spent is greater than 50% in coordination of care (as documented) at patient's floor/unit and/or counseling patient: Coding Level of Care Code 78011 Initial Inpt Care Lvl 3 Diagnoses Hematuria, gross R31.0 Hydronephrosis N13.30 BPH w urinary obs/LUTS N40.1; N13.8
[2020-11-20] MEDS ORDERED: MEROPENEM CONSULT ACITVE PRN (12:57)
[2020-11-20] MEDS ORDERED: MEROPENEM 500 MG in SYRINGE 0 ML IV ONE (13:30)
--- NOTE | 2020-11-20 14:01 | Operative Report ---
PG Post Operative Report Pre & Post Diagnosis Operation Date: 11/20/20 12:45 Pre-Op Diagnosis: Benign Prostatic Hyperplasia with Urinary Obstruction, Gross Hematuria Post-Op Diagnosis: Benign Prostatic Hyperplasia with Urinary Obstruction, Gross Hematuria I identified the patient and participated in the time-out.: Yes Procedure Operation Date: 11/20/20 12:45 Actual Procedures p Transurethral Resection Prostate, destruction and extraction of Bladder Stones (Not Applicable) - Julio C Zhou DO Surgeon Julio C Zhou, II, DO Reconditioner None Estimated Blood Loss 10 Findings Consistent with Post-Op Diagnosis Large Prostate with obstruction. Innumerable stones within the bladder and prostatic urethra. Largest stones 5 to 6 mm Specimens Prostate adenoma. Bladder stones. Drains 22Fr three-way catheter Anesthesia Type General Complications none Disposition Disposition: Recovery Room Indications Patient with obstruction due to prostate enlargement. Risks and benefits discussed at length. Description of Procedure Patient was consented and brought back to the operating room. Patient was placed under anesthesia in the supine position and moved to the dorsal lithotomy position. Patient was prepped and draped in the regular sterile fashion. A time out was completed. A 30degree Cystoscope was placed into the bladder and the entire bladder was examined. The UO's were identified as well as the bladder neck, trigone, dome, and the other important landmarks. The prostatic urethra and large lobes/adenoma was assessed and the veru and bladder neck identified and area/size was assessed. Innumerable stones were found within the bladder and prostatic urethra. The stones were destroyed and irrigated. Some of the stone fragments were sent for analysis. The resection scope was placed and the fine bipolar loop was selected. Starting at the 5 and 7 o'clock positions, a channel was created from bladder neck to the veru. With the channel created the lateral lobes were then resected. Starting at the 1 in the 11 o'clock position the lateral lobe was resected down to the 6 o'clock position. A significant amount of lateral enlargement was noted. Patient also had a somewhat narrowed bladder neck and an incision of the bladder neck was completed with the resection. The Specimen was removed and sent for analysis. The resection bed and any bleeding areas were fulgurated/cauterized and the entire area inspected. All bleeding was controlled. The bladder was inspected a final time. The bladder was emptied and irrigated. All specimen and debris was removed. The scope was removed with the bladder partially full. A catheter was placed and balloon elevated. This was easily irrigated. With good irrigation, the continuous bladder irrigation was connected. The patient was cleaned, aroused from anesthesia, and transferred to the pacu in stable condition having tolerated the procedure well with no complications. I was present and participated in all aspects of the procedure. The patient will be monitored in the PACU until transferred. I attest to the content of the Intraoperative Record and any orders documented therein. Any exceptions are noted below.
--- NOTE | 2020-11-20 15:06 | Anesthesiology Progress Note ---
Date of Service November 20, 2020 Anesthesia Post Procedure Vital Signs Vital Signs: Temp Pulse Pulse Resp BP BP Pulse Ox 11/20/20 14:50 36.2 C L 58 L 14 128/71 100 11/20/20 14:40 57 L 14 136/69 100 11/20/20 14:30 61 14 131/69 100 11/20/20 14:20 69 14 134/73 100 11/20/20 14:12 36.0 C L 59 L 14 126/68 97 11/20/20 11:27 36.5 C 83 18 104/61 97 Transfer of Care Handoff Completed per policy Notes Mental Status: alert / awake / arousable and participated in evaluation Patient Amnestic to Procedure: Yes Nausea / Vomiting: adequately controlled Pain: adequately controlled Airway Patency, RR, SpO2: stable & adequate BP & HR: stable & adequate Hydration State: stable & adequate Anesthetic Complications: no major complications apparent and Pt Satisfied with anesthetic care
--- NOTE | 2020-11-20 15:14 | Electrocardiogram Report ---
Test Reason : Blood Pressure : / mmHG Vent. Rate : 071 BPM Atrial Rate : 071 BPM P-R Int : 162 ms QRS Dur : 088 ms QT Int : 408 ms P-R-T Axes : 033 -39 018 degrees QTc Int : 443 ms Normal sinus rhythm Left anterior fascicular block Abnormal ECG When compared with ECG of 28-OCT-2020 18:19, Vent. rate has decreased BY 50 BPM No significant change Confirmed by Shamir Fowler ([id number]) on 11/20/2020 3:13:53 PM Referred By: Julio C Zhou Confirmed By:Shamir Fowler
[2020-11-20] MEDS ORDERED: PIPERACILL/TAZOBAC CONSULT ACTIVE PRN (16:22)
[2020-11-20] MEDS ORDERED: MoRPHine SULFATE 2 MG/ML CARP IV PRN (16:29)
[2020-11-20] MEDS ORDERED: MAGNESIUM HYDROXIDE SUSP 30 ML UDC PO PRN (16:29)
[2020-11-20] MEDS ORDERED: bisacodyL 10 MG SUPP PR PRN (16:29)
[2020-11-20] MEDS ORDERED: oxyCODONE/ACETAMINOPHEN 5mg/325mg TAB PO PRN (16:29)
[2020-11-20] MEDS ORDERED: BELLADONNA/OPIUM SUPP 60 MG SUPP PR PRN (16:29)
[2020-11-20] MEDS ORDERED: PIPERACILLIN/TAZOBACTAM 4.5 GM in DEXTROSE 5% 100 ML IV ONE (17:00)
[2020-11-20 17:05] LABS: Basophils # (auto) 0.01 K/uL (0-0.2); Basophils % (auto) 0.2 %; Eosinophils # (auto) 0.03 K/uL (0-0.5); Eosinophils % (auto) 0.5 %; Hematocrit (blood only) 34.6 % (42-52); Hemoglobin 11.5 g/dL (14.0-18.0); Immature Granulocytes # (auto) 0.01 K/uL (0.00-0.02); Immature Granulocytes % (auto) 0.2 %; Lymphocytes # (auto) 1.13 K/uL (1.2-3.4); Mean Corpuscular Hemoglobin 27.6 pg (25-34); Mean Corpuscular Hgb Conc 33.2 g/dL (32-36); Mean Platelet Volume 9.6 fL (7.4-10.4); Monocytes # (auto) 0.12 K/uL (0.11-0.59); Monocytes % (auto) 2.1 %; Neutrophils # (auto) 4.34 K/uL (1.4-6.5); Platelet Count 322 K/uL (130-400); RDW Coefficient of Variation 15.2 % (11.5-14.5); RDW Standard Deviation 46.3 fL (36.4-46.3); Red Blood Count 4.17 M/uL (4.7-6.1); White Blood Count 5.64 K/uL (4.8-10.8)
[2020-11-20 17:20] LABS: BUN Creatinine Ratio 10.8 (10-20); Calcium 9.4 mg/dl (8.5-10.1); Creatinine Clr Calc Pharmacy 57.6 ml/min; Est GFR (African American) 63.5; Est GFR (Non-African American) 54.8; Potassium 4.7 mmol/L (3.5-5.1)
--- NOTE | 2020-11-20 17:35 | Hospitalist Consultation ---
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 (3) Paroxysmal atrial fibrillation: is on tikosyn and eliquis, eliquis is held to be restarted once hemostasis is assured (4) Parkinson disease: sinemet (5) Diabetes: glipizide and metformin continue but is glucoses are out of control will initiate ssi (6) DVT prophylaxis: scd for dvt prevention History of Present Illness Attending Physician: 11/20/20 Transurethral Resection Prostate, Extraction of Bladder Stones Surgeon: Julio C Zhou Indication for the procedure was hematuria, gross levels with recent Pseudomonas urinary tract infection and concern for obstructive uropathy: Significant issues due to over distention of bladder with significant obstructive issues from prostate enlargement as well as exacerbation of urinary issues because of parkinsonism. Status post opening of prostate to allow better voiding. Patient seen postoperatively he was still slightly sedated he offers no complaints or problems he is really Borrego catheter in place and with his urine the color is of a segundo' wine Allergies Allergy/AdvReac Type Severity Reaction Status Date / Time ciprofloxacin [From Cipro] Allergy Unknown Unknown Verified 11/20/20 11:21 Home Medications Medication Instructions Recorded Confirmed Type acetaminophen [Tylenol Extra 500 mg PO Q6H PRN 04/12/19 11/20/20 History Strength] carbidopa-levodopa [Sinemet] 1 tab PO TID 04/12/19 11/20/20 History cranberry 500 mg PO QAM 04/12/19 11/20/20 History levetiracetam [Keppra] 500 mg PO BID 04/12/19 11/20/20 History metformin 1,000 mg PO BID 04/12/19 11/20/20 History tamsulosin 0.4 mg PO BID 04/12/19 11/20/20 History cholecalciferol (vitamin D3) 2,000 unit PO QAM 08/30/19 11/20/20 History [Vitamin D3] Eliquis 5 mg PO BID 10/28/20 11/20/20 History acetaminophen [Tylenol] 650 mg PO Q4 PRN 10/28/20 11/20/20 History ascorbic acid (vitamin C) [Vitamin 500 mg PO BID 10/28/20 11/20/20 History C] aspirin 81 mg PO QAM 10/28/20 11/20/20 History bisacodyl [Dulcolax (bisacodyl)] 10 mg [place] DAILY PRN 10/28/20 11/20/20 History cyanocobalamin (vitamin B-12) 1,000 mcg PO QAM 10/28/20 11/20/20 History dofetilide 250 mcg PO BID 10/28/20 11/20/20 History garlic 1 mg PO DAILY 10/28/20 11/20/20 History glipizide 2.5 mg PO BID 10/28/20 11/20/20 History magnesium hydroxide [Milk of 30 ml PO UD PRN 10/28/20 11/20/20 History Magnesia] methenamine hippurate 1 g PO BID 10/28/20 11/20/20 History pantoprazole 40 mg PO QAM 10/28/20 11/20/20 History finasteride 5 mg PO DAILY #30 tab 11/01/20 11/20/20 Rx levofloxacin 500 mg tablet 500 mg PO DAILY 5 Days #5 tab 11/17/20 11/20/20 Rx Patient History Medical History Acute confusion "Metabolic encephalopathy likely secondary to UTI.. Treat UTI" per discharge summary from 11/02/20 BPH w urinary obs/LUTS Dementia just related to UTI's > no dementia Diabetes NIDDM HTN (hypertension) Hx of seizure disorder Per records- patient on Keppra. Per nursing assessment- unsure why this is on record- no known recent seizures Kidney stones Parkinson disease Just fine tremor per nursing assessment "Severe" per 11/02/20 discharge summary Paroxysmal atrial fibrillation dx 1 yrs ago> Eliquis> no pacer> follows Dr. Sanz in [place] Surgical History History of cataract surgery bilat History of cystoscopy History of tooth extraction Family History Mother Diabetes Other No pertinent family history in first degree relatives Social History Smoking Status: Never smoker Second Hand Exposure: No; Do You Dip or Chew Tobacco: No; Tobacco Cessation Education Requested by Patient: No Hx Alcohol Use: Yes Alcohol type: beer Hx Substance Use: No Preferred Language: [place] Communication Ability: Effective Caddy Master Required: No Beliefs That Will Affect Care: None marital status: Current Living Situation: Spouse Current Living Situation Comment: normally with spouse at home Other Information That Helps Us Care for You: No Feels Safe at Home: Yes Safety Concerns: Feels Safe At This Time Assistive Devices: Cane, Glasses and Walker Review of Systems Review of Systems: Mild distress and fatigue Patient is slightly sedated, bradykinetic although this may be his Parkinson's no headache, blurry or double vision no speech or swallowing issues no chest pain, pressure or palpitations no shortness of breath, cough or wheezes no abdominal pain, nausea or vomiting, diarrhea or constipation Hematuria seen with [address] no focal joint pain or swelling no back pain, CVA tenderness or radicular pain no bruising, bleeding or rashes no focal signs of weakness or numbness or altered sensation no complaints of anxiety or depression.. Physical Exam Physical Exam: The patient appeared well nourished and normally developed. He has some expressionless facies and bradykinesia is consistent with his diagnosis of Parkinson's disease Vital signs as documented. Head exam is normocephalic atraumatic no scleral icterus Neck is without JVD, thyromegaly, or carotid bruits. Lungs are clear to auscultation, no focal loss of breath sounds Cardiac exam, rate controlled but irregular.. Mild systolic murmur, rubs or gallops. Abdominal exam reveals normal bowel sounds, soft non tender, no masses Extremities are nonedematous and both pedal pulses are present Neurologic exam is alert and oriented, no focal loss of strength or sensation Skin is without bruises or rashes Psychologically is without concerns for anxiety or depression Results & Data Results & Data ([facility]) Vital Signs (Past 12 Hours) Vital Signs Temp Pulse Pulse Resp BP BP Pulse Ox 11/20/20 14:50 97.2 F L 58 L 14 128/71 100 11/20/20 14:40 57 L 14 136/69 100 11/20/20 14:30 61 14 131/69 100 11/20/20 14:20 69 14 134/73 100 11/20/20 14:12 96.8 F L 59 L 14 126/68 97 11/20/20 11:27 97.7 F 83 18 104/61 97 PG Care Time/CCT Total # of Minutes Spent Total Time Spent with Patient: Total time spent is greater than 50% in coordination of care (as documented) at patient's floor/unit and/or counseling patient: Coding Level of Care Code 32548 Inpt Consult Level 3 Diagnoses Hematuria, gross R31.0 Acute UTI N39.0 Paroxysmal atrial fibrillation I48.0 Parkinson disease G20 Diabetes E11.9 Diabetes mellitus complication status: without complication Diabetes mellitus custodial insulin use: without intermediate card tender use Diabetes mellitus type: type 2 DVT prophylaxis Z29.9 (1) Diabetes Diabetes mellitus complication status: without complication Diabetes mellitus intermediate card tender insulin use: without custodial use Diabetes mellitus type: type 2 Qualified Code(s): E11.9 - Type 2 diabetes mellitus without complications
[2020-11-20] MEDS ORDERED: GLUCOSE 40% GEL 15 GM TUBE PO PRN (18:01)
[2020-11-20] MEDS ORDERED: DEXTROSE 50% 50 ML SYRINGE IV PRN (18:01)
[2020-11-20] MEDS ORDERED: CARBOHYDRATES FOR HYPOGLYCEMIA PO PRN (18:01)
[2020-11-20] MEDS ORDERED: GLUCAGON FOR INJ 1 MG VIAL SQ PRN (18:01)
[2020-11-20] MEDS ORDERED: GLUCOSE 10 TABS/TUBE PO PRN (18:01)
[2020-11-20] MEDS: SODIUM CHLORIDE 0.9% 1000ML 1,000 ML IV SCH (18:18)
[2020-11-20] MEDS: CARBIDOPA/LEVODOPA 25/100MG TAB PO SCH ×2 (18:24→20:56)
[2020-11-20] MEDS: glipiZIDE ER 2.5 MG TABCR PO SCH (18:24)
[2020-11-20] MEDS: metFORMIN HCL 500 MG TAB PO SCH (18:24)
[2020-11-20] MEDS: ceFAZolin 2000MG 2,000 MG/15 ML SYR IV SCH (19:00)
[2020-11-20] MEDS: DOFETILIDE 125 MCG CAPSULE PO SCH (20:56)
[2020-11-20] MEDS: TAMSULOSIN HCL 0.4 MG CAP PO SCH (20:56)
[2020-11-20] MEDS: levETIRAcetam 500 MG TAB PO SCH (20:56)
[2020-11-20] MEDS: PIPERACILLIN/TAZOBACTAM 4.5 GM in DEXTROSE 5% 100 ML IV SCH (21:46)
[2020-11-20] MEDS: INSULIN ASPART 100 UNITS/ML 3 ML PEN SC SCH (21:50)
[2020-11-20] MEDS ORDERED: MEROPENEM 500 MG in SYRINGE 0 ML IV SCH (22:00)
[2020-11-21] MEDS: ceFAZolin 2000MG 2,000 MG/15 ML SYR IV SCH ×2 (02:35→09:45)
[2020-11-21] MEDS: SODIUM CHLORIDE 0.9% 1000ML 1,000 ML IV SCH ×2 (04:37→15:24)
[2020-11-21] MEDS: PIPERACILLIN/TAZOBACTAM 4.5 GM in DEXTROSE 5% 100 ML IV SCH ×3 (06:15→22:36)
[2020-11-21] MEDS: metFORMIN HCL 500 MG TAB PO SCH ×2 (07:39→18:09)
[2020-11-21] MEDS: glipiZIDE ER 2.5 MG TABCR PO SCH ×2 (07:39→18:09)
[2020-11-21] MEDS: levETIRAcetam 500 MG TAB PO SCH ×2 (07:39→20:26)
[2020-11-21] MEDS: TAMSULOSIN HCL 0.4 MG CAP PO SCH ×2 (07:39→20:25)
[2020-11-21] MEDS: FINASTERIDE 5 MG TAB PO SCH (07:40)
[2020-11-21] MEDS: PANTOprazole 40 MG TAB PO SCH (07:40)
[2020-11-21] MEDS: DOFETILIDE 125 MCG CAPSULE PO SCH ×2 (07:40→20:26)
[2020-11-21] MEDS: CARBIDOPA/LEVODOPA 25/100MG TAB PO SCH ×3 (07:40→20:26)
[2020-11-21] MEDS: INSULIN ASPART 100 UNITS/ML 3 ML PEN SC SCH ×4 (07:41→22:04)
--- NOTE | 2020-11-21 07:54 | Hospitalist Progress Note ---
Date of Service November 21, 2020 Assessment & Plan (1) Hematuria, gross: * POD#1 s/p turp and removal of bladder stones to help with recurrent infection and renal function with Dr. Zhou on 11/20. EBL 10cc. Pre-op h/h 11.5/34.6 * Stone sent for analysis * PT/OT/pain management/DVT prophylaxis per primary service -- ordered PT/OT for today however patient is already established with home therapy [employer] * Would resume Eliquis as soon as possible when deemed appropriate by Urology (doing well post op having Eliquis on hold due to carmenza operative hemostasis) * remains on Flomax and Proscar * Mascorro to be maintained for 2-3 weeks with supportive care/pain control and abx for outpt management * Currently on Zosyn/Ancef IV as he has hx of meropenem resistant pseudomonas * CBC stable but some acute blood loss anemia with h/h 10.4/31.3 due to hematuria/surgery and continuous IVF NSS @ 100cc/hr * Cr stable, but slightly elevated to 1.37 -- continues on * Possible d/c later this afternoon per Urology if remains stable (2) Acute UTI: * has history of meropenem resistant pseudomonas (on 11/15) and is on Zosyn * Could consider Cipro at discharge or Levaquin at discretion of Urology (was on Levaquin prior) (3) Paroxysmal atrial fibrillation: * is on tikosyn and eliquis -- tikosyn continued * eliquis is held to be restarted once hemostasis is assured -- resume when able by Urology (4) Parkinson disease: * sinemet * stable -- has PT/OT at home per patient but getting evals while inpatient for any additional needs (5) Diabetes: * continue glipizide and metformin * BSGs have been controlled -- no need for SSI at this time (6) DVT prophylaxis: * scd for dvt prevention * Eliquis to be resumed at discretion of Urology -- would resume as soon as possible Dispo: possible discharge this afternoon once re-eval by Urology [employer] If patient remains hospitalized, hospitalist service will follow along. Otherwise, stable for discharge from medical standpoint with outpatient follow- up. Admission and Anticipated Discharge Date Admission Date: November 20, 2020 Subjective Patient evaluated this morning. Feeling well. Mascorro maintained and draining yellow urine, no blood noted. No fever, chills, chest pain, shortness of breath, abdominal pain, nausea, vomiting, dysuria or irritation of the penis. No pain reported with current medications. Seen by Urology this morning and plans for possible discharge this afternoon but will need eval by PT/OT prior to discharge. Patient states he has therapy at home regarding possible Parkinsons, and since starting Sinemet his tremors have almost resolved and hasn't had some in quite some time. Review of Systems Review of Systems: All systems reviewed & are unremarkable except as noted in HPI & below Physical Exam Constitutional: well developed, well nourished and comfortable; no acute distress sitting up in chair with legs crossed Eyes: + anicteric sclerae and PERRL ENMT: Ears: + hearing impairment (slight) Neck: normal visual inspection and trachea midline Respiratory: normal respiratory effort, lungs clear to auscultation decreased effort/expansion Cardiovascular: Rate/Rhythm: + irregularly irregular (rate controlled) Vessels: no JVD Extremities: no edema Gastrointestinal (Abdomen): normal bowel sounds, soft, nontender, no hepatosplenomegaly Skin: normal turgor; no rashes Neurologic: patellar DTR's 2+ bilat, sensation intact flat affect bradykinesia action tremor noted R hand Psychiatric: Orientation: alert and oriented x 3 (flat affect, facies) Genitourinary: no CVA tenderness mascorro draining yellow urine CBI in place Results & Data Results & Data ([facility]) Vital Signs (Past 12 Hours) Vital Signs Temp Pulse Pulse Resp BP BP Pulse Ox 11/21/20 07:48 68 11/21/20 07:44 36.5 C 71 20 125/72 96 11/21/20 03:39 36.9 C 63 16 108/57 L 95 11/20/20 23:41 75 11/20/20 23:05 36.6 C 62 16 136/64 96 Laboratory Results 11/21/20 11/21/20 11/21/20 Range/Units 10:56 07:18 07:14 WBC (4.8-10.8) K/uL RBC (4.7-6.1) M/uL Hgb (14.0-18.0) g/dL Hct (42-52) % MCV (80-100) fL MCH (25-34) pg MCHC (32-36) g/dL RDW Std Deviation (36.4-46.3) fL RDW Coeff of [place] (11.5-14.5) % Plt Count (130-400) K/uL MPV (7.4-10.4) fL Immature Gran % (Auto) % Neut % (Auto) % Lymph % (Auto) % [place] % (Auto) % Eos % (Auto) % Baso % (Auto) % Neut # (Auto) (1.4-6.5) K/uL Lymph # (Auto) (1.2-3.4) K/uL [place] # (Auto) (0.11-0.59) K/uL Eos # (Auto) (0-0.5) K/uL Baso # (Auto) (0-0.2) K/uL Immature Gran # (Auto) (0.00-0.02) K/uL Sodium 141 (136-145) mmol/L Potassium 4.2 (3.5-5.1) mmol/L Chloride 110 H (98-107) mmol/L Carbon Dioxide 24 (21-32) mmol/L Anion Gap 7.0 (3-11) BUN 16 (7-18) mg/dl Creatinine 1.37 (0.6-1.4) mg/dl Est Cr Clr Drug Dosing 55.1 ml/min Est GFR ( Amer) 60.1 Est GFR (Non-Af Amer) 51.9 BUN/Creatinine Ratio 11.8 (10-20) Glucose 118 H (70-99) mg/dl POC Glucose 131 H (70-99) mg/dl Calcium 9.0 (8.5-10.1) mg/dl Ammonia 10.8 L (11-32) umol/L Stone Source Stone Weight Stone Composition Stone Composition 2 11/21/20 11/21/20 11/20/20 Range/Units 07:14 07:13 Unknown WBC 6.53 (4.8-10.8) K/uL RBC 3.83 L (4.7-6.1) M/uL Hgb 10.4 L (14.0-18.0) g/dL Hct 31.3 L (42-52) % MCV 81.7 (80-100) fL MCH 27.2 (25-34) pg MCHC 33.2 (32-36) g/dL RDW Std Deviation 45.2 (36.4-46.3) fL RDW Coeff of [place] 15.0 H (11.5-14.5) % Plt Count 345 (130-400) K/uL MPV 10.2 (7.4-10.4) fL Immature Gran % (Auto) % Neut % (Auto) % Lymph % (Auto) % [place] % (Auto) % Eos % (Auto) % Baso % (Auto) % Neut # (Auto) (1.4-6.5) K/uL Lymph # (Auto) (1.2-3.4) K/uL [place] # (Auto) (0.11-0.59) K/uL Eos # (Auto) (0-0.5) K/uL Baso # (Auto) (0-0.2) K/uL Immature Gran # (Auto) (0.00-0.02) K/uL Sodium (136-145) mmol/L Potassium (3.5-5.1) mmol/L Chloride (98-107) mmol/L Carbon Dioxide (21-32) mmol/L Anion Gap (3-11) BUN (7-18) mg/dl Creatinine 1.35 (0.6-1.4) mg/dl Est Cr Clr Drug Dosing 55.9 ml/min Est GFR ( Amer) 61.2 Est GFR (Non-Af Amer) 52.8 BUN/Creatinine Ratio (10-20) Glucose (70-99) mg/dl POC Glucose (70-99) mg/dl Calcium (8.5-10.1) mg/dl Ammonia (11-32) umol/L Stone Source Pending Stone Weight Pending Stone Composition Pending Stone Composition 2 Pending 11/20/20 11/20/20 11/20/20 Range/Units 21:49 20:26 16:55 WBC 5.64 (4.8-10.8) K/uL RBC 4.17 L (4.7-6.1) M/uL Hgb 11.5 L (14.0-18.0) g/dL Hct 34.6 L (42-52) % MCV 83.0 (80-100) fL MCH 27.6 (25-34) pg MCHC 33.2 (32-36) g/dL RDW Std Deviation 46.3 (36.4-46.3) fL RDW Coeff of [place] 15.2 H (11.5-14.5) % Plt Count 322 (130-400) K/uL MPV 9.6 (7.4-10.4) fL Immature Gran % (Auto) 0.2 % Neut % (Auto) 77.0 % Lymph % (Auto) 20.0 % [place] % (Auto) 2.1 % Eos % (Auto) 0.5 % Baso % (Auto) 0.2 % Neut # (Auto) 4.34 (1.4-6.5) K/uL Lymph # (Auto) 1.13 L (1.2-3.4) K/uL [place] # (Auto) 0.12 (0.11-0.59) K/uL Eos # (Auto) 0.03 (0-0.5) K/uL Baso # (Auto) 0.01 (0-0.2) K/uL Immature Gran # (Auto) 0.01 (0.00-0.02) K/uL Sodium (136-145) mmol/L Potassium (3.5-5.1) mmol/L Chloride (98-107) mmol/L Carbon Dioxide (21-32) mmol/L Anion Gap (3-11) BUN (7-18) mg/dl Creatinine (0.6-1.4) mg/dl Est Cr Clr Drug Dosing ml/min Est GFR ( Amer) Est GFR (Non-Af Amer) BUN/Creatinine Ratio (10-20) Glucose (70-99) mg/dl POC Glucose 193 H 224 H (70-99) mg/dl Calcium (8.5-10.1) mg/dl Ammonia (11-32) umol/L Stone Source Stone Weight Stone Composition Stone Composition 2 11/20/20 11/20/20 11/20/20 Range/Units 16:55 16:51 14:19 WBC (4.8-10.8) K/uL RBC (4.7-6.1) M/uL Hgb (14.0-18.0) g/dL Hct (42-52) % MCV (80-100) fL MCH (25-34) pg MCHC (32-36) g/dL RDW Std Deviation (36.4-46.3) fL RDW Coeff of [place] (11.5-14.5) % Plt Count (130-400) K/uL MPV (7.4-10.4) fL Immature Gran % (Auto) % Neut % (Auto) % Lymph % (Auto) % [place] % (Auto) % Eos % (Auto) % Baso % (Auto) % Neut # (Auto) (1.4-6.5) K/uL Lymph # (Auto) (1.2-3.4) K/uL [place] # (Auto) (0.11-0.59) K/uL Eos # (Auto) (0-0.5) K/uL Baso # (Auto) (0-0.2) K/uL Immature Gran # (Auto) (0.00-0.02) K/uL Sodium 140 (136-145) mmol/L Potassium 4.7 (3.5-5.1) mmol/L Chloride 109 H (98-107) mmol/L Carbon Dioxide 26 (21-32) mmol/L Anion Gap 5.0 (3-11) BUN 14 (7-18) mg/dl Creatinine 1.31 (0.6-1.4) mg/dl Est Cr Clr Drug Dosing 57.6 ml/min Est GFR ( Amer) 63.5 Est GFR (Non-Af Amer) 54.8 BUN/Creatinine Ratio 10.8 (10-20) Glucose 149 H (70-99) mg/dl POC Glucose 144 H 97 (70-99) mg/dl Calcium 9.4 (8.5-10.1) mg/dl Ammonia (11-32) umol/L Stone Source Stone Weight Stone Composition Stone Composition 2 PG Care Time/CCT Total # of Minutes Spent Total Time Spent with Patient: Total time spent is greater than 50% in coordination of care (as documented) at patient's floor/unit and/or counseling patient: Coding Level of Care Code 91283 Subseq Obs Care Lvl 2 Diagnoses Hematuria, gross R31.0 Acute UTI N39.0 Paroxysmal atrial fibrillation I48.0 Parkinson disease G20 Diabetes E11.9 Diabetes mellitus complication status: without complication Diabetes mellitus nursing home insulin use: without rat exterminator use Diabetes mellitus type: type 2 DVT prophylaxis Z29.9 (1) Diabetes Diabetes mellitus complication status: without complication Diabetes mellitus nursing home insulin use: without nursing home use Diabetes mellitus type: type 2 Qualified Code(s): E11.9 - Type 2 diabetes mellitus without complications
[2020-11-21 08:09] LABS: Creatinine Clr Calc Pharmacy 55.9 ml/min; Est GFR (African American) 61.2; Est GFR (Non-African American) 52.8
[2020-11-21 08:27] LABS: Hematocrit (blood only) 31.3 % (42-52); Hemoglobin 10.4 g/dL (14.0-18.0); Mean Corpuscular Hemoglobin 27.2 pg (25-34); Mean Corpuscular Hgb Conc 33.2 g/dL (32-36); Mean Corpuscular Volume 81.7 fL (80-100); Mean Platelet Volume 10.2 fL (7.4-10.4); Platelet Count 345 K/uL (130-400); RDW Standard Deviation 45.2 fL (36.4-46.3); Red Blood Count 3.83 M/uL (4.7-6.1); White Blood Count 6.53 K/uL (4.8-10.8)
[2020-11-21 08:34] LABS: BUN Creatinine Ratio 11.8 (10-20); Creatinine Clr Calc Pharmacy 55.1 ml/min; Est GFR (African American) 60.1; Est GFR (Non-African American) 51.9; Potassium 4.2 mmol/L (3.5-5.1)
--- NOTE | 2020-11-21 09:09 | Urology Progress Note ---
Date of Service November 21, 2020 Assessment & Plan (1) Hydronephrosis: (2) BPH w urinary obs/LUTS: Postop day 1 from transurethral resection of prostate for obstruction issues, retention, chronic UTIs, and considerable worsening of lower urinary tract symptoms. Patient overall has been doing well. Has tolerated diet. Is getting out of bed with assistance. Has lab work that is pending. Urine is clearing without major issue. Is tolerating catheter. He is having mild irritation and bother but is controlled with medication. No fevers chills. No nausea or vomiting. No considerable problems with anesthesia. Patient is being titrated to clear off of the CBI. If he does continue to improve will likely be able to be discharged home. We will need to maintain catheter for 2-3 weeks with plans for supportive care/pain control and antibiotics for management as outpatient. If patient continues to improve and urine continues to clear likely can be discharged later this morning or early afternoon. We will have nurse practitioners reassess at that time and discharge if able Admission and Anticipated Discharge Date Admission Date: November 20, 2020 Subjective Postop day 1 status post TURP for retention, chronic UTIs, and obstruction issues. Patient has been tolerating well. Has noticed some frequency and urgency. Has not had severe pain in the back and flank. Does have occasional burning and irritation. No severe episodes or major changes. No new nausea or vomiting. Had tolerated anesthesia without major problems Review of Systems Review of Systems: All systems reviewed & are unremarkable except as noted in HPI & below Physical Exam Physical Exam: General: Alert in no acute distress. Advanced age. Chronic Medical issues. Significant chronic issues due to parkinsonism HEENT: Normocephalic. Inspection normal. Cranial Nerves 2-12 Grossly intact with some hearing issues. Normal inspection of face. Normal inspection of neck. Psychologic: Normal affect. Baseline issues with memory. Respiratory: Nonlabored. No use of accessory muscles. No tachypnea or dyspnea. Cardiovascular: No tachycardia Skin: [place] and Dry. No rashes or visible lesions. Extremities/Lymphatics: Minor Mobility issues. Slow Gait. Abdomen: Soft Non-distended. No rebound or guarding. : Borrego in place draining light pink urine with minimal CBI Results & Data ([facility]) Vital Signs (Past 12 Hours) Vital Signs Temp Pulse Pulse Resp BP BP Pulse Ox 02/09/21 07:48 68 11/21/20 07:44 36.5 C 71 20 125/72 96 11/21/20 03:39 36.9 C 63 16 108/57 L 95 11/20/20 23:41 75 11/20/20 23:05 36.6 C 62 16 136/64 96 PG Care Time/CCT Total # of Minutes Spent Total Time Spent with Patient: Total time spent is greater than 50% in coordination of care (as documented) at patient's floor/unit and/or counseling patient: Coding Level of Care Code 76140 Subseq Hosp Care Lvl 2 Diagnoses Hydronephrosis N13.30 BPH w urinary obs/LUTS N40.1; N13.8
[2020-11-22] MEDS: SODIUM CHLORIDE 0.9% 1000ML 1,000 ML IV SCH ×2 (01:36→11:21)
[2020-11-22] MEDS: PIPERACILLIN/TAZOBACTAM 4.5 GM in DEXTROSE 5% 100 ML IV SCH (05:48)
[2020-11-22 06:50] LABS: Hematocrit (blood only) 29.2 % (42-52); Hemoglobin 9.7 g/dL (14.0-18.0); Mean Corpuscular Hemoglobin 27.2 pg (25-34); Mean Corpuscular Hgb Conc 33.2 g/dL (32-36); Platelet Count 276 K/uL (130-400); RDW Coefficient of Variation 15.1 % (11.5-14.5); RDW Standard Deviation 45.2 fL (36.4-46.3); Red Blood Count 3.56 M/uL (4.7-6.1); White Blood Count 4.23 K/uL (4.8-10.8)
[2020-11-22 07:18] LABS: BUN Creatinine Ratio 11.4 (10-20); Calcium 8.1 mg/dl (8.5-10.1); Creatinine Clr Calc Pharmacy 66.8 ml/min; Est GFR (African American) 75.9; Est GFR (Non-African American) 65.5; Potassium 3.9 mmol/L (3.5-5.1)
[2020-11-22 07:23] LABS: Ferritin 19.3 ng/ml (8-388)
[2020-11-22] MEDS: INSULIN ASPART 100 UNITS/ML 3 ML PEN SC SCH ×2 (07:48→11:21)
[2020-11-22] MEDS: metFORMIN HCL 500 MG TAB PO SCH (07:51)
[2020-11-22] MEDS: FINASTERIDE 5 MG TAB PO SCH (07:52)
[2020-11-22] MEDS: glipiZIDE ER 2.5 MG TABCR PO SCH (07:52)
[2020-11-22] MEDS: TAMSULOSIN HCL 0.4 MG CAP PO SCH (07:52)
[2020-11-22] MEDS: levETIRAcetam 500 MG TAB PO SCH (07:52)
[2020-11-22] MEDS: CARBIDOPA/LEVODOPA 25/100MG TAB PO SCH ×2 (07:53→11:52)
[2020-11-22] MEDS: DOFETILIDE 125 MCG CAPSULE PO SCH (07:53)
[2020-11-22] MEDS: PANTOprazole 40 MG TAB PO SCH (07:53)
--- NOTE | 2020-11-22 08:36 | Hospitalist Progress Note ---
Date of Service November 22, 2020 Assessment & Plan (1) Hematuria, gross: * POD#2 s/p turp and removal of bladder stones to help with recurrent infection and renal function with Dr. Zhou on 11/20. EBL 10cc. Pre-op h/h 11.5/34.6 * Stone sent for analysis * PT/OT/pain management/DVT prophylaxis per primary service -- ordered PT/OT for today however patient is already established with home therapy. PT/OT with recs for return home * Would resume Eliquis as soon as possible when deemed appropriate by Urology (doing well post op having Eliquis on hold due to carmenza operative hemostasis) --> plans to resume AM 11/23 * remains on Flomax and Proscar * Mascorro to be maintained for 2-3 weeks with supportive care/pain control and abx for outpt management * Currently on Zosyn/Ancef IV as he has hx of meropenem resistant pseudomonas * CBC stable but some acute blood loss anemia with h/h 9.7/29.2 due to initial hematuria/surgery and continuous IVF NSS @ 100cc/hr. * Slightly lower today but had continued on IVF and mascorro draining clear/yellow urine * Cr stable, but slightly elevated to 1.37 however improved back to baseline 1.13 prior to discharge * d/c later this afternoon per Urology (2) Acute UTI: * has history of meropenem resistant pseudomonas (on 11/15) and is on Zosyn * Could consider Cipro at discharge or Levaquin at discretion of Urology (was on Levaquin prior) (3) Paroxysmal atrial fibrillation: * is on tikosyn and eliquis -- tikosyn continued * eliquis is held to be restarted once hemostasis is assured -- resume when able by Urology, planned for AM 11/23 (4) Parkinson disease: * sinemet * stable -- has PT/OT at home per patient but getting evals while inpatient for any additional needs. recs for return home * CM ensured home health set up (5) Diabetes: * continue glipizide and metformin * BSGs have been controlled -- no need for SSI at this time (6) DVT prophylaxis: * scd for dvt prevention * Eliquis to be resumed 11/23 Discharge this afternoon planned. Thank you for allowing hospitalist service to participate in the care of Mr. Porras. Medicine signed off. Admission and Anticipated Discharge Date Admission Date: November 21, 2020 Subjective Patient evaluated this morning. Feeling well. Kidney function stable, urine clear/yellow. No pain reported. Plans for discharge this afternoon with home health. Discussed with MORNING NEWS ANCHOR and she will reach out to about mascorro care and follow- up as well as medication changes. Review of Systems Review of Systems: All systems reviewed & are unremarkable except as noted in HPI & below Physical Exam Constitutional: well developed, well nourished and comfortable; no acute distress Eyes: + anicteric sclerae and PERRL ENMT: Ears: + hearing impairment (slight) Neck: normal visual inspection and trachea midline Respiratory: normal respiratory effort, lungs clear to auscultation Cardiovascular: Rate/Rhythm: + irregularly irregular (rate controlled) Vessels: no JVD Extremities: no edema Gastrointestinal (Abdomen): normal bowel sounds, soft, nontender, no hepatosplenomegaly Skin: normal turgor; no rashes Neurologic: patellar DTR's 2+ bilat, sensation intact Motor/Sensory: + tr emor Psychiatric: Orientation: alert and oriented x 3 (flat affect, facies) Genitourinary: no CVA tenderness mascorro draining clear/yellow urine Results & Data Results & Data ([facility]) Vital Signs (Past 12 Hours) Vital Signs Temp Pulse Pulse Resp BP Pulse Ox 11/22/20 07:32 66 11/22/20 07:00 36.6 C 59 L 20 110/57 L 97 11/22/20 03:00 36.4 C L 61 20 125/69 97 11/21/20 23:35 65 11/21/20 23:00 36.6 C 64 116/54 L 97 Laboratory Results 11/22/20 11/22/20 11/22/20 Range/Units 07:45 06:25 06:25 WBC 4.23 L (4.8-10.8) K/uL RBC 3.56 L (4.7-6.1) M/uL Hgb 9.7 L (14.0-18.0) g/dL Hct 29.2 L (42-52) % MCV 82.0 (80-100) fL MCH 27.2 (25-34) pg MCHC 33.2 (32-36) g/dL RDW Std Deviation 45.2 (36.4-46.3) fL RDW Coeff of Donovan 15.1 H (11.5-14.5) % Plt Count 276 (130-400) K/uL MPV 10.0 (7.4-10.4) fL Sodium 143 (136-145) mmol/L Potassium 3.9 (3.5-5.1) mmol/L Chloride 114 H (98-107) mmol/L Carbon Dioxide 23 (21-32) mmol/L Anion Gap 6.0 (3-11) BUN 13 (7-18) mg/dl Creatinine 1.13 (0.6-1.4) mg/dl Est Cr Clr Drug Dosing 66.8 ml/min Est GFR ( Amer) 75.9 Est GFR (Non-Af Amer) 65.5 BUN/Creatinine Ratio 11.4 (10-20) Glucose 87 (70-99) mg/dl POC Glucose 100 H (70-99) mg/dl Calcium 8.1 L (8.5-10.1) mg/dl Iron 81 (35-175) mcg/dl TIBC 494 H (250-450) mcg/dl Transferrin 252 (200-360) mg/dl Transferrin % Sat 23 (20-50) % Ferritin 19.3 (8-388) ng/ml Ammonia (11-32) umol/L 11/21/20 11/21/20 11/21/20 Range/Units 22:02 18:08 11:32 WBC (4.8-10.8) K/uL RBC (4.7-6.1) M/uL Hgb (14.0-18.0) g/dL Hct (42-52) % MCV (80-100) fL MCH (25-34) pg MCHC (32-36) g/dL RDW Std Deviation (36.4-46.3) fL RDW Coeff of Donoavn (11.5-14.5) % Plt Count (130-400) K/uL MPV (7.4-10.4) fL Sodium (136-145) mmol/L Potassium (3.5-5.1) mmol/L Chloride (98-107) mmol/L Carbon Dioxide (21-32) mmol/L Anion Gap (3-11) BUN (7-18) mg/dl Creatinine (0.6-1.4) mg/dl Est Cr Clr Drug Dosing ml/min Est GFR ( Amer) Est GFR (Non-Af Amer) BUN/Creatinine Ratio (10-20) Glucose (70-99) mg/dl POC Glucose 113 H 157 H 156 H (70-99) mg/dl Calcium (8.5-10.1) mg/dl Iron (35-175) mcg/dl TIBC (250-450) mcg/dl Transferrin (200-360) mg/dl Transferrin % Sat (20-50) % Ferritin (8-388) ng/ml Ammonia (11-32) umol/L 11/21/20 Range/Units 10:56 WBC (4.8-10.8) K/uL RBC (4.7-6.1) M/uL Hgb (14.0-18.0) g/dL Hct (42-52) % MCV (80-100) fL MCH (25-34) pg MCHC (32-36) g/dL RDW Std Deviation (36.4-46.3) fL RDW Coeff of Donovan (11.5-14.5) % Plt Count (130-400) K/uL MPV (7.4-10.4) fL Sodium (136-145) mmol/L Potassium (3.5-5.1) mmol/L Chloride (98-107) mmol/L Carbon Dioxide (21-32) mmol/L Anion Gap (3-11) BUN (7-18) mg/dl Creatinine (0.6-1.4) mg/dl Est Cr Clr Drug Dosing ml/min Est GFR ( Amer) Est GFR (Non-Af Amer) BUN/Creatinine Ratio (10-20) Glucose (70-99) mg/dl POC Glucose (70-99) mg/dl Calcium (8.5-10.1) mg/dl Iron (35-175) mcg/dl TIBC (250-450) mcg/dl Transferrin (200-360) mg/dl Transferrin % Sat (20-50) % Ferritin (8-388) ng/ml Ammonia 10.8 L (11-32) umol/L PG Care Time/CCT Total # of Minutes Spent Total Time Spent with Patient: Total time spent is greater than 50% in coordination of care (as documented) at patient's floor/unit and/or counseling patient: Coding Level of Care Code 55505 Subseq Hosp Care Lvl 2 Diagnoses Hematuria, gross R31.0 Acute UTI N39.0 Paroxysmal atrial fibrillation I48.0 Parkinson disease G20 Diabetes E11.9 Diabetes mellitus type: type 2 Diabetes mellitus terminal make up operator insulin use: without mcc use Diabetes mellitus complication status: without complication DVT prophylaxis Z29.9 (1) Diabetes Diabetes mellitus type: type 2 Diabetes mellitus mcc insulin use: without mcc use Diabetes mellitus complication status: without complication Qualified Code(s): E11.9 - Type 2 diabetes mellitus without complications
--- NOTE | 2020-11-22 09:28 | Urology Progress Note ---
Date of Service November 22, 2020 Assessment & Plan (1) BPH w urinary obs/LUTS: 69yo M admitted s/p Transurethral Resection Prostate, destruction and extraction of Bladder Stones on 11/20 -POD #2 s/p Transurethral Resection Prostate, destruction and extraction of Bladder Stones with Dr. Zhou. -Doing well, clinically progressing as expected post procedure. -Afebrile, Wbc and creatinine are stable. -Tolerating Mascorro catheter with no issues. -Plan reviewed with Dr. Zhou. -Will plan to maintain Mascorro catheter for 7 to 10 days with plans for supportive care, pain control, and antibiotics for management as outpatient. -Will resume Eliquis and Aspirin today as his urine has been clear for 24 hours. -Discharge home today with mascorro catheter. -Hospital team aware and agreeable to discharge plan. -Patient is established with home therapy QUALITY ASSURANCE MONITOR FINAL. -Expected clinical course reviewed with patient, all questions were answered. -Will arrange postoperative follow-up with urology service Attending note: Admission and Anticipated Discharge Date Admission Date: November 21, 2020 Subjective POD #2 s/p Transurethral Resection Prostate, destruction and extraction of Bladder Stones Pt examined at bedside this AM. Awake, sitting in bedside chair at time of exam. Denies any pain or discomfort at this time. Mascorro catheter intact, draining clear yellow urine. Denies dysuria. Tolerating diet, no nausea or vomiting. Ambulating w/assistance. Chart review: Afebrile Wbc 4.23 Hgb 9.7 Cr 1.13 Mascorro output overnight- 1350ml Continues on IV Zosyn Review of Systems Constitutional: as per Subjective / HPI Gastrointestinal: as per Subjective / HPI Genitourinary: + as per Subjective / HPI Physical Exam Constitutional: comfortable; no acute distress Respiratory: normal respiratory effort; no labored breathing Cardiovascular: Extremities: no calf tenderness Gastrointestinal (Abdomen): Percussion/Palpation: abdomen soft; abdomen nonte nder and no guarding Skin: Warm and dry No visible rashes or lesions. Neurologic: awake flat affect Psychiatric: Orientation: alert and oriented x 3 Genitourinary: Mascorro catheter intact Results & Data ([facility]) Vital Signs (Past 12 Hours) Vital Signs Temp Pulse Pulse Resp BP Pulse Ox 11/22/20 07:32 66 11/22/20 07:00 36.6 C 59 L 20 110/57 L 97 11/22/20 03:00 36.4 C L 61 20 125/69 97 11/21/20 23:35 65 11/21/20 23:00 36.6 C 64 116/54 L 97 PG Care Time/CCT Total # of Minutes Spent Total Time Spent with Patient: Total time spent is greater than 50% in coordi nation of care (as documented) at patient's floor/unit and/or counseling patient: Coding Level of Care Code 55194 Subseq Hosp Care Lvl 2 Diagnoses BPH w urinary obs/LUTS N40.1; N13.8
--- NOTE | 2020-11-22 16:47 | Discharge Summary ---
Date of Service November 22, 2020 Admission HPI Per Admitting Provider Patient admitted for transurethral resection of prostate for obstruction issues, retention, chronic UTIs, and considerable worsening of lower urinary tract symptoms. Admission Exam Per Admitting Provider General: Alert/Arousable. No Acute illness. Parkinsonism. Advanced age. HEENT: Inspection normal. Normal inspection of face. Normal inspection of neck. Psychologic: Normal affect/No change in mentation. Respiratory: No use of accessory muscles. No respiratory changes or exacerbation or changes with tachypnea or dyspnea. Cardiovascular: No tachycardia Skin: Palouse and Dry. No new rashes or visible lesions. Slow gait. Abdomen: Normal inspection. No guarding. Principal Diagnosis BPH with obstruction/lower urinary tract symptoms, Bladder stones Discharge Exam Constitutional well developed and well nourished; no acute distress Respiratory normal respiratory effort; no labored breathing Cardiovascular Extremities: no calf tenderness Gastrointestinal (Abdomen) Percussion/Palpation: abdomen soft; abdomen nontender and no guarding Musculoskeletal Head/Neck/Chest: normocephalic Skin no rashes, warm and dry Neurologic moves all extremities and awake Psychiatric Orientation: alert and oriented x 3 Genitourinary Mascorro catheter intact Discharge Data Allergies Allergy/AdvReac Type Severity Reaction Status Date / Time ciprofloxacin [From Cipro] Allergy Unknown Unknown Verified 11/20/20 11:21 Consultations 11/20/20 16:29 Consult Hospitalist Routine Procedures Performed Operation Date: 11/20/20 12:45 Actual Procedures p Transurethral Resection Prostate, Extraction of Bladder Stones (Not Applicable) - Julio C Zhou DO Hospital Course (1) BPH w urinary obs/LUTS: BPH with obstruction/lower urinary tract symptoms: Patient underwent transurethral resection of prostate and destruction and extraction of bladder stones on 11/20/[address] Zhou. Tolerated procedure well, no complications. Hemodynamically stable. Reassessed postop day 1 and day 2 from transurethral resection of prostate for obstruction issues. Patient overall has been doing well since procedure. He has tolerated diet. Has been out of bed with assistance. No reports of pain or discomfort. Labs reviewed and as expected post op. CBI titrated to clear and clamped in AM of POD#1, rechecked and urine was clear yellow with minimal pink-tinge. Eliquis and Aspirin resumed today as his urine was clear > 24 hours. Plan to maintain Mascorro catheter for 7 to 10 days with plans for supportive care/pain control and antibiotics for management as outpatient. Discharge home today with mascorro catheter. Total Time Total Time Spent Total Time Spent (In Minutes): 15 Total Time Includes: Examination of the Patient, Discharge Planning, Medication Reconciliation, Communication With Other Providers and Other Discharge Plan Discharge Items Patient Disposition: Home - Home Health Services Reason For Visit: BPH WITH RETENTION. HEMATURIA. Discharge Diagnosis: Benign Prostatic Hyperplasia with Urinary Obstruction Activity: Per Instructions section Lifting: No more than 25 pounds Bathing Comment: Okay to showed 1 day after discharge, no tub bath or soaking Sexual Activity: Wait until after follow-up appointment Exercise/Sports: Wait until after follow-up appointment Driving/Machine Use: No driving while taking prescription pain medication Non-emergency contact: Surgeon and Urologist Call non-emergency contact if: your symptoms worsen, your pain is worsening, your pain is concerning for you, you have a fever and your temperature is above 101 Follow-up/Referrals: Kostas Hannah [Primary Care Provider] - Diet: Regular Addtl Attending Provider Instructions: Please take all medications as prescribed and keep all follow-ups as scheduled. Please call our office at [phone] with any questions, concerns or need to reschedule appointments for any reason. We are happy to assist you. *Finish your course of antibiotic (Levofloxacin) that was prescribed to you before surgery. *A prescription for 3 additional days of Levofloxacin was sent to your pharmacy. Please complete course as directed. *Hold methenamine while taking treatment antibiotic. You can resume after completing Levofloxacin. *Please resume your Eliquis and aspirin today. Please call our office if your urine is bright red. Tips for your recovery at home: Dont be alarmed by brownish or reddish blood or clots in your urine. This is a result of the procedure. This may occur off and on for weeks to months after the procedure but should continue to improve. Drink plenty of fluids during the day (enough to keep your urine very light colored). This will help keep a healthy flow of urine. Do not lift >25 lbs until your followup Avoid constipation. Please use a stool softener (Colace) for the first two weeks after your procedure Be sure to finish the antibiotics as prescribed. If you go home with a catheter, please wash tubing where it enters your body twice daily with mild soap (Dove or Dial). Once your catheter is removed, expect some blood in your urine and some burning when you urinate. You should have an appointment to have this removed, if you do not please call our office to arrange. Pending Studies at Discharge: Yes Stand-Alone Forms: My [facility], Smoking Cessation Medications and DC Order Prescriptions: New docusate sodium [Colace] 100 mg capsule 100 mg PO BID Qty: 60 RF: 0 oxycodone-acetaminophen [Percocet] 5-325 mg tablet 1 tab PO TID PRN (Reason: pain) Qty: 7 RF: 0 levofloxacin 500 mg tablet 500 mg PO DAILY 3 Days Qty: 3 RF: 0 Continued levofloxacin 500 mg tablet 500 mg PO DAILY 5 Days Qty: 5 RF: 0 levetiracetam [Keppra] 500 mg Tablet 500 mg PO BID RF: 0 metformin 1,000 mg Tablet 1,000 mg PO BID RF: 0 tamsulosin 0.4 mg Capsule 0.4 mg PO BID RF: 0 carbidopa-levodopa [Sinemet] 25-100 mg tablet 1 tab PO TID RF: 0 cranberry 500 mg Capsule 500 mg PO QAM RF: 0 cholecalciferol (vitamin D3) [Vitamin D3] 2,000 unit Tablet 2,000 unit PO QAM RF: 0 cyanocobalamin (vitamin B-12) 1,000 mcg Tablet 1,000 mcg PO QAM RF: 0 dofetilide 125 mcg capsule 250 mcg PO BID RF: 0 aspirin 81 mg Tablet,Delayed Release (Dr/Ec) 81 mg PO QAM RF: 0 methenamine hippurate 1 gram tablet 1 g PO BID RF: 0 magnesium hydroxide [Milk of Magnesia] 400 mg/5 mL Suspension 30 ml PO UD PRN (Reason: Constipation) RF: 0 ascorbic acid (vitamin C) [Vitamin C] 500 mg Tablet 500 mg PO BID RF: 0 glipizide 2.5 mg tablet extended release 24hr 2.5 mg PO BID RF: 0 bisacodyl [Dulcolax (bisacodyl)] 10 mg Suppository 10 mg [place] DAILY PRN (Reason: Constipation) RF: 0 pantoprazole 40 mg tablet,delayed release (DR/EC) 40 mg PO QAM RF: 0 garlic Tablet 1 mg PO DAILY RF: 0 Eliquis 5 mg tablet 5 mg PO BID RF: 0 finasteride 5 mg tablet 5 mg PO DAILY Qty: 30 RF: 0 Discontinued acetaminophen [Tylenol Extra Strength] 500 mg Tablet 500 mg PO Q6H PRN (Reason: Mild Pain (Scale Score 1-4)) RF: 0 acetaminophen [Tylenol] 325 mg Capsule 650 mg PO Q4 PRN (Reason: Fever Or Pain) RF: 0 Discharge Orders: Discharge Order (Routine); Ordered 11/22/20 Ordered By: Mely Ramirez Admission Data Admit Date/Time: 11/21/20 14:29 Attending Provider: JulioC Zhou Admit Provider: Julio C Zhou Primary Care Provider: Kostas Hannha Other Providers: Ori Pascual ; Mely Colunga ; Kvng De Santiago ; Damaso Ryan ; Romelia Fitzgerald ; Declan Ngo ; Cooper Vega ; Eldon Manriquez ; Sarah Walden ; Kristy Rhodes ; Pau Carpio ; Carlos Sneed ; Claudette Watson ; Charisse Goode ; Venancio Amanda ; Vern Blancas ; Alla Ayala ; Jitendra Romeo ; Ady Leung ; Traci Ko ; John Guerra ; Nicholas Chong ; Kvng Wagner ; Eladio Shen ; Frida Villafuerte ; Nikhil Guzmán ; Angel Oshea ; [facility] Fax Other Interventions: Discharge Summary Assessment (RN) Last Done: 11/22/20 11:58 Coding Level of Care Code D/C Day Management <30 mins Diagnoses BPH w urinary obs/LUTS N40.1; N13.8
[2020-11-24 02:06] LABS: Component 2 DNR; Source BLADDER STONE
--- NOTE | 2020-12-01 09:41 | Coding Query ---
PATHOLOGY To promote full compliance with coding requirements relating to patient care, physician participation is requested in all cases of ladle puller uncertainty. Please assist us with the question(s) below: Please review the Pathology report and please document any relevant diagnosis(es) below: Prostate Cancer, Incidentally in TURP specimen. Diagnosis(es): Thank you Milly WHITE
== END 2020-11-22 14:21 | disposition home health service (06) | DRG 713 ==
LOC: ASU 10:47 → 2W 10:47

== ENCOUNTER 2021-01-20 16:49 | Observation (INO) ==
[2021-01-20] MEDS ORDERED: SODIUM CHLORIDE 0.9% 1000ML 1,000 ML IV ONE (17:36)
[2021-01-20 17:46] LABS: Basophils # (auto) 0.02 K/uL (0-0.2); Basophils % (auto) 0.4 %; Eosinophils # (auto) 0.11 K/uL (0-0.5); Eosinophils % (auto) 2.5 %; Hematocrit (blood only) 31.6 % (42-52); Immature Granulocytes # (auto) 0.01 K/uL (0.00-0.02); Immature Granulocytes % (auto) 0.2 %; Lymphocytes # (auto) 1.36 K/uL (1.2-3.4); Lymphocytes % (auto) 30.5 %; Mean Corpuscular Hemoglobin 27.8 pg (25-34); Mean Corpuscular Hgb Conc 34.8 g/dL (32-36); Mean Corpuscular Volume 79.8 fL (80-100); Mean Platelet Volume 9.5 fL (7.4-10.4); Monocytes # (auto) 0.52 K/uL (0.11-0.59); Monocytes % (auto) 11.7 %; Neutrophils # (auto) 2.44 K/uL (1.4-6.5); Neutrophils % (auto) 54.7 %; Platelet Count 261 K/uL (130-400); RDW Coefficient of Variation 13.2 % (11.5-14.5); RDW Standard Deviation 38.5 fL (36.4-46.3); Red Blood Count 3.96 M/uL (4.7-6.1); White Blood Count 4.46 K/uL (4.8-10.8)
[2021-01-20 17:54] LABS: Alanine Aminotransferase 19 U/L (12-78); Albumin Level 3.7 gm/dl (3.4-5.0); Aspartate Aminotransferase < 3 U/L (15-37); Blood Urea Nitrogen 20 mg/dl (7-18); Calcium 8.9 mg/dl (8.5-10.1); Carbon Dioxide 28 mmol/L (21-32); Chloride 103 mmol/L (98-107); Creatinine Clr Calc Pharmacy 52.4 ml/min; Est GFR (African American) 57.2; Est GFR (Non-African American) 49.3; Glucose 87 mg/dl (70-99); Magnesium 2.2 mg/dl (1.8-2.4); Potassium 4.3 mmol/L (3.5-5.1); Sodium 136 mmol/L (136-145)
[2021-01-20 17:57] LABS: INR 1.1 (0.9-1.1); Partial Thromboplastin Ratio 1.1; Partial Thromboplastin Time 29.4 Seconds (21.0-31.0); Prothrombin Time 10.7 Seconds (9.0-12.0)
[2021-01-20 18:04] LABS: Albumin Globulin Ratio 1.2 (0.9-2); Alkaline Phosphatase 83 U/L (45-117); Bilirubin,Total 0.3 mg/dl (0.2-1); Globulin 3.2 gm/dl (2.5-4.0); Phosphorus 3.4 mg/dl (2.5-4.9); Total Protein 6.9 gm/dl (6.4-8.2); Troponin I < 0.015 ng/ml (0-0.045)
[2021-01-20 18:12] LABS: Appearance Urine Clear (Clear); Bacteria Urine Automated Negative (Negative); Bilirubin Urine Negative (Negative); Blood Urine 3+ (Negative); Color Urine Yellow; Epithelial Cell Urine Auto >30 /lpf (0-5); Glucose Urine UA Negative (Negative); Ketones Urine Negative (Negative); Leukocyte Esterase Urine 2+ (Negative); Nitrite Urine Negative (Negative); Protein Urine Negative (Negative); Specific Gravity Urine 1.009 (1.000-1.030); Urobilinogen Urine Negative (Negative); WBC Urine Automated >30 /hpf (0-5); pH Urine 5.5 (4.5-7.5)
--- NOTE | 2021-01-20 18:17 | XRay Report ---
XR chest 1V portable HISTORY: SEPSIS COMPARISON: Chest 08/30/2019. FINDINGS: The cardiac silhouette remains mildly enlarged. No focal lung consolidations to suggest pne umonia. No evidence for pulmonary edema. No pleural effusions. No pneumothorax. Slightly rotated stud y. IMPRESSION: No significant change compared to the prior study. No acute process. ACT 112: Negative or not required by law. Electronically signed by: Bernard Howard M.D. 01/20/2021 6:15 PM
--- NOTE | 2021-01-20 18:34 | Emergency Department Note ---
Impression & Plan Acute UTI, Acute kidney injury, Parkinson disease ED Provider Note NAME: SOHAM HALE AGE: 70 SEX: M ARRIVES VIA: Ambulance INFORMANT: Patient, ED PROVIDER(S): Jose Zhang MD CHIEF COMPLAINT: weakness, dark urine PLAN: Disposition: Admit MEDICAL DECISION MAKING: The patient is a pleasant 70-year-old gentleman with a past medical history of Parkinson disease, paroxysmal atrial fibrillation, prostate cancer, BPH with LUTS s/p TURP on 11/20/2020 who presents to the emergency department from home after there was concern for generalized weakness and dark urine in the setting of the patient apparently being discharged from [facility] yesterday. The patient is alert to self and denies complaints at this time other than having to urinate. On arrival the patient is chronically ill-appearing but no acute distress, afebrile stable vital signs. He appears clinically dry. He is moving all extremities equally with generalized weakness with resting tremor and mild rigidity with movements. He has masked facies. Abdomen is benign. EKG without overt acute ischemia. Chest x-ray negative for acute cardiopulmonary process. WBC 4.4, nonspecific and similar to prior range of values. H/H .6 similar to prior range of values. Platelets within normal limits. Chemistry without metabolic acidosis. Creatinine 1.4 slightly increased from prior consistent with the patient's clinically dry appearance. LFTs unremarkable. Troponin negative/undetectable. Procalcitonin is not elevated. TSH within normal limits. UA with suspicion for infection with 2+ leuk esterase, WBCs however no bacteria and epithelial cells are present. Patient was ordered for initial treatment with Levaquin given prior history of pansensitive Pseudomonas. COVID- 19, influenza and RSV PCR was negative. CT of the head negative for acute process. Given the patient's generalized weakness and confusion in setting of possible UTI with associated dehydration where patient again in the hospital after being discharged from rehab reasonable to admit the patient for further management. Case was discussed with Dr. Pascual, [facility] hospitalist, who will evaluate the patient for admission. Triage Nursing notes reviewed and agree them. Prior medical records reviewed Vital Signs: reviewed and remarkable for no significant abnormalities Differential diagnosis: Infection, dehydration, metabolic abnormality, hypo/hyperglycemia, electrolyte disturbance, anemia, hypoxia, cardiac sources, intracerebral event, toxicologic, neurologic, as well as other pathologies. ER treatment provided: See below. Diagnostics interpreted by me: ECG: Normal sinus rhythm, 71 bpm, no ectopy, left anterior fascicular block, LVH, no overt ST elevation or depression, QTC 434, QRS 112. Cardiac Monitoring: An order for continuous cardiac monitoring was placed and demonstrated Normal sinus rhythm, 71 bpm, no ectopy. Laboratory studies: See below Imaging studies: See below Consultation(s): Case was discussed with Dr. Pascual, [facility] hospitalist, who will evaluate the patient for admission. HPI: The patient is a pleasant 70-year-old gentleman with a past medical history of Parkinson disease, paroxysmal atrial fibrillation, prostate cancer, BPH with LUTS s/p TURP on 11/20/2020 who presents to the emergency department from home after there was concern for generalized weakness and dark urine in the setting of the patient apparently being discharged from [facility] yesterday. The patient is alert to self and denies complaints at this time other than having to urinate. ROS: See above HPI for pertinent positives & negatives. A total of 10 systems reviewed and were otherwise negative. PAST MEDICAL HISTORY:See Below PAST SURGICAL HISTORY:See Below FAMILY HISTORY:See Below SOCIAL HISTORY:See Below HOME MEDICATIONS:See Below ALLERGIES:See Below VITALS:See Below PHYSICAL EXAMINATION: GENERAL: Awake, alert, chronically ill/fatigued-appearing, in no distress HENT: Normocephalic, atraumatic. Oropharynx with dry mucous membranes and otherwise unremarkable. EYES: Normal conjunctiva. Sclera non-icteric. NECK: Supple. No nuchal rigidity. FROM. No JVD. RESPIRATORY: Clear to auscultation. CARDIAC: Regular rate, normal rhythm. Extremities warm and well perfused. Pulses equal. ABDOMEN: Soft, non-distended. No tenderness to palpation. No rebound or guarding. No masses. RECTAL: Deferred. MUSCULOSKELETAL: Chest examination reveals no tenderness. The back is symmetrical on inspection without obvious abnormality. There is no CVA ten derness to palpation. No joint edema. LOWER EXTREMITIES: Calves are equal size bilaterally and non-tender. No edema. No discoloration. NEURO: Masked facies. Generalized weakness that is symmetric with resting tremor and mild rigidity with motor movements in the setting of the patient's Parkinson disease. SKIN: No rash or jaundice noted. Jose Zhang MD Past Med/Surg History Medical History Acute confusion "Metabolic encephalopathy likely secondary to UTI.. Treat UTI" per discharge summary from 11/02/20 BPH w urinary obs/LUTS Dementia just related to UTI's > no dementia Diabetes NIDDM HTN (hypertension) Hx of seizure disorder Per records- patient on Keppra. Per nursing assessment- unsure why this is on record- no known recent seizures Kidney stones Parkinson disease Just fine tremor per nursing assessment "Severe" per 11/02/20 discharge summary Paroxysmal atrial fibrillation dx 1 yrs ago> Eliquis> no pacer> follows Dr. Sanz in [place] Surgical History History of cataract surgery bilat History of cystoscopy History of tooth extraction Family History Mother Diabetes Other No pertinent family history in first degree relatives Social History Smoking Status: Never smoker Second Hand Exposure: No; Do You Dip or Chew Tobacco: No; Tobacco Cessation Education Requested by Patient: No Hx Alcohol Use: Yes Alcohol type: beer Hx Substance Use: No Preferred Language: [place] Communication Ability: Effective Visual Impairment: No Limitations Manager Department Required: No Beliefs That Will Affect Care: Tenriism Tenriism Beliefs: Buddhist marital status: Current Living Situation: Spouse Current Living Situation Comment: normally with spouse at home Other Information That Helps Us Care for You: No Feels Safe at Home: Yes Safety Concerns: Feels Safe At This Time Assistive Devices: Cane and Walker Allergies Allergies Allergy/AdvReac Type Severity Reaction Status Date / Time ciprofloxacin [From Cipro] Allergy Unknown Unknown Verified 01/20/21 17:27 Home Meds Home Medications Medication Instructions Recorded Confirmed carbidopa-levodopa [Sinemet] 1 tab PO TID 04/12/19 01/20/21 cranberry 500 mg PO QAM 04/12/19 01/20/21 levetiracetam [Keppra] 500 mg PO BID 04/12/19 01/20/21 metformin 1,000 mg PO BIDM 04/12/19 01/20/21 tamsulosin 0.4 mg PO HS 04/12/19 01/20/21 cholecalciferol (vitamin D3) 2,000 unit PO QAM 08/30/19 01/20/21 [Vitamin D3] Eliquis 5 mg PO BID 10/28/20 01/20/21 ascorbic acid (vitamin C) [Vitamin 500 mg PO BID 10/28/20 01/20/21 C] aspirin 81 mg PO QAM 10/28/20 01/20/21 cyanocobalamin (vitamin B-12) 1,000 mcg PO QAM 10/28/20 01/20/21 glipizide 2.5 mg PO DAILY 10/28/20 01/20/21 methenamine hippurate 1 g PO BID 10/28/20 01/20/21 pantoprazole 40 mg PO QAM 10/28/20 01/20/21 dofetilide 250 mcg PO BID 12/28/20 01/20/21 acetaminophen [Tylenol] 650 mg PO Q6H PRN 01/20/21 01/20/21 docusate sodium [Colace] 100 mg PO DAILY PRN 01/20/21 01/20/21 donepezil 5 mg PO HS 01/20/21 01/20/21 lactulose 20 g PO 3XWK 01/20/21 01/20/21 magnesium oxide 400 mg PO QAM 01/20/21 01/20/21 propranolol 5 mg PO DAILY 01/20/21 01/20/21 Results & Data (ED) Vital Signs Vital Signs - 24 hr 01/20/21 16:53 01/20/21 17:05 01/20/21 17:36 Temperature 37.3 C Temperature Source Oral Pulse Rate 75 Pulse Rate from SpO2 Sensor Pulse Rhythm Regular Pulse Strength Normal Respiratory Rate 16 20 Respiratory Effort / Characteristics Non-Labored Non-Labored Spontaneous Respiratory Depth Normal Blood Pressure 108/53 L Blood Pressure Mean 71 Blood Pressure Position Sitting Pulse Oximetry 97 98 Oxygen Delivery Method Room Air Room Air Room Air Sepsis Recent Fever Within 48 Hours No Sepsis New/Unexplained Change in Mental Status Yes Sepsis Action Taken by Nursing No Action Required 01/20/21 18:00 01/20/21 18:43 01/20/21 19:00 Temperature Temperature Source Pulse Rate 82 69 70 Pulse Rate from SpO2 Sensor 69 64 Pulse Rhythm Pulse Strength Respiratory Rate 19 24 16 Respiratory Effort / Characteristics Respiratory Depth Blood Pressure 155/74 H 111/63 130/68 Blood Pressure Mean 101 79 88 Blood Pressure Position Pulse Oximetry 98 97 Oxygen Delivery Method Sepsis Recent Fever Within 48 Hours Sepsis New/Unexplained Change in Mental Status Sepsis Action Taken by Nursing 01/20/21 19:31 01/20/21 20:00 01/20/21 22:00 Temperature Temperature Source Pulse Rate 81 78 68 Pulse Rate from SpO2 Sensor 81 69 Pulse Rhythm Pulse Strength Respiratory Rate 19 20 16 Respiratory Effort / Characteristics Respiratory Depth Blood Pressure 138/85 166/87 H 115/55 L Blood Pressure Mean 102 113 75 Blood Pressure Position Pulse Oximetry 98 98 97 Oxygen Delivery Method Sepsis Recent Fever Within 48 Hours Sepsis New/Unexplained Change in Mental Status Sepsis Action Taken by Nursing Laboratory Data Attestation: I reviewed the patient's lab results. Result diagrams: 01/20/21 17:07 01/20/21 17:07 Lab Results 01/20/21 01/20/21 01/20/21 Range/Units 17:07 17:07 17:07 WBC 4.46 L (4.8-10.8) K/uL RBC 3.96 L (4.7-6.1) M/uL Hgb 11.0 L (14.0-18.0) g/dL Hct 31.6 L (42-52) % MCV 79.8 L (80-100) fL MCH 27.8 (25-34) pg MCHC 34.8 (32-36) g/dL RDW Std Deviation 38.5 (36.4-46.3) fL RDW Coeff of Donovan 13.2 (11.5-14.5) % Plt Count 261 (130-400) K/uL MPV 9.5 (7.4-10.4) fL Immature Gran % (Auto) 0.2 % Neut % (Auto) 54.7 % Lymph % (Auto) 30.5 % Shannon % (Auto) 11.7 % Eos % (Auto) 2.5 % Baso % (Auto) 0.4 % Neut # (Auto) 2.44 (1.4-6.5) K/uL Lymph # (Auto) 1.36 (1.2-3.4) K/uL Shannon # (Auto) 0.52 (0.11-0.59) K/uL Eos # (Auto) 0.11 (0-0.5) K/uL Baso # (Auto) 0.02 (0-0.2) K/uL Immature Gran # (Auto) 0.01 (0.00-0.02) K/uL PT 10.7 (9.0-12.0) Seconds INR 1.1 (0.9-1.1) APTT 29.4 (21.0-31.0) Seconds PTT Ratio 1.1 Sodium 136 (136-145) mmol/L Potassium 4.3 (3.5-5.1) mmol/L Chloride 103 (98-107) mmol/L Carbon Dioxide 28 (21-32) mmol/L Anion Gap 5.0 (3-11) BUN 20 H (7-18) mg/dl Creatinine 1.42 H (0.6-1.4) mg/dl Est Cr Clr Drug Dosing 52.4 ml/min Est GFR ( Amer) 57.2 Est GFR (Non-Af Amer) 49.3 BUN/Creatinine Ratio 14.0 (10-20) Glucose 87 (70-99) mg/dl Calcium 8.9 (8.5-10.1) mg/dl Phosphorus 3.4 (2.5-4.9) mg/dl Magnesium 2.2 (1.8-2.4) mg/dl Total Bilirubin 0.3 (0.2-1) mg/dl AST < 3 L (15-37) U/L ALT 19 (12-78) U/L Alkaline Phosphatase 83 (45-117) U/L Troponin I < 0.015 (0-0.045) ng/ml Total Protein 6.9 (6.4-8.2) gm/dl Albumin 3.7 (3.4-5.0) gm/dl Globulin 3.2 (2.5-4.0) gm/dl Albumin/Globulin Ratio 1.2 (0.9-2) Procalcitonin (0-0.5) ng/ml TSH 3.180 (0.300-4.500) uIu/ml Urine Color Urine Appearance (Clear) Urine pH (4.5-7.5) Ur Specific [place] (1.000-1.030) Urine Protein (Negative) Urine Glucose (UA) (Negative) Urine Ketones (Negative) Urine Blood (Negative) Urine Nitrite (Negative) Urine Bilirubin (Negative) Urine Urobilinogen (Negative) Ur Leukocyte Esterase (Negative) Urine WBC (Auto) (0-5) /hpf Urine RBC (Auto) (0-4) /hpf U Hyaline Cast (Auto) (0-5) /lpf U Epithel Cells (Auto) (0-5) /lpf Urine Bacteria (Auto) (Negative) Urine Yeast COVID-19 Eval Order SARS-CoV-2 (PCR) (Negative) Influenza Type A (PCR) (Neg) Influenza Type B (PCR) (Neg) RSV (RT-PCR) (Neg) 01/20/21 01/20/21 01/20/21 Range/Units 17:07 17:35 17:55 WBC (4.8-10.8) K/uL RBC (4.7-6.1) M/uL Hgb (14.0-18.0) g/dL Hct (42-52) % MCV (80-100) fL MCH (25-34) pg MCHC (32-36) g/dL RDW Std Deviation (36.4-46.3) fL RDW Coeff of Donovan (11.5-14.5) % Plt Count (130-400) K/uL MPV (7.4-10.4) fL Immature Gran % (Auto) % Neut % (Auto) % Lymph % (Auto) % Shannon % (Auto) % Eos % (Auto) % Baso % (Auto) % Neut # (Auto) (1.4-6.5) K/uL Lymph # (Auto) (1.2-3.4) K/uL Shannon # (Auto) (0.11-0.59) K/uL Eos # (Auto) (0-0.5) K/uL Baso # (Auto) (0-0.2) K/uL Immature Gran # (Auto) (0.00-0.02) K/uL PT (9.0-12.0) Seconds INR (0.9-1.1) APTT (21.0-31.0) Seconds PTT Ratio Sodium (136-145) mmol/L Potassium (3.5-5.1) mmol/L Chloride (98-107) mmol/L Carbon Dioxide (21-32) mmol/L Anion Gap (3-11) BUN (7-18) mg/dl Creatinine (0.6-1.4) mg/dl Est Cr Clr Drug Dosing ml/min Est GFR ( Amer) Est GFR (Non-Af Amer) BUN/Creatinine Ratio (10-20) Glucose (70-99) mg/dl Calcium (8.5-10.1) mg/dl Phosphorus (2.5-4.9) mg/dl Magnesium (1.8-2.4) mg/dl Total Bilirubin (0.2-1) mg/dl AST (15-37) U/L ALT (12-78) U/L Alkaline Phosphatase (45-117) U/L Troponin I (0-0.045) ng/ml Total Protein (6.4-8.2) gm/dl Albumin (3.4-5.0) gm/dl Globulin (2.5-4.0) gm/dl Albumin/Globulin Ratio (0.9-2) Procalcitonin < 0.05 (0-0.5) ng/ml TSH (0.300-4.500) uIu/ml Urine Color Yellow Urine Appearance Clear (Clear) Urine pH 5.5 (4.5-7.5) Ur Specific [place] 1.009 (1.000-1.030) Urine Protein Negative (Negative) Urine Glucose (UA) Negative (Negative) Urine Ketones Negative (Negative) Urine Blood 3+ H (Negative) Urine Nitrite Negative (Negative) Urine Bilirubin Negative (Negative) Urine Urobilinogen Negative (Negative) Ur Leukocyte Esterase 2+ H (Negative) Urine WBC (Auto) >30 H (0-5) /hpf Urine RBC (Auto) 5-10 H (0-4) /hpf U Hyaline Cast (Auto) 1-5 (0-5) /lpf U Epithel Cells (Auto) >30 H (0-5) /lpf Urine Bacteria (Auto) Negative (Negative) Urine Yeast Not Reportable COVID-19 Eval Order CovFluRsv at [facility] SARS-CoV-2 (PCR) (Negative) Influenza Type A (PCR) (Neg) Influenza Type B (PCR) (Neg) RSV (RT-PCR) (Neg) 01/20/21 Range/Units 17:55 WBC (4.8-10.8) K/uL RBC (4.7-6.1) M/uL Hgb (14.0-18.0) g/dL Hct (42-52) % MCV (80-100) fL MCH (25-34) pg MCHC (32-36) g/dL RDW Std Deviation (36.4-46.3) fL RDW Coeff of Donovan (11.5-14.5) % Plt Count (130-400) K/uL MPV (7.4-10.4) fL Immature Gran % (Auto) % Neut % (Auto) % Lymph % (Auto) % Shannon % (Auto) % Eos % (Auto) % Baso % (Auto) % Neut # (Auto) (1.4-6.5) K/uL Lymph # (Auto) (1.2-3.4) K/uL Shannon # (Auto) (0.11-0.59) K/uL Eos # (Auto) (0-0.5) K/uL Baso # (Auto) (0-0.2) K/uL Immature Gran # (Auto) (0.00-0.02) K/uL PT (9.0-12.0) Seconds INR (0.9-1.1) APTT (21.0-31.0) Seconds PTT Ratio Sodium (136-145) mmol/L Potassium (3.5-5.1) mmol/L Chloride (98-107) mmol/L Carbon Dioxide (21-32) mmol/L Anion Gap (3-11) BUN (7-18) mg/dl Creatinine (0.6-1.4) mg/dl Est Cr Clr Drug Dosing ml/min Est GFR ( Amer) Est GFR (Non-Af Amer) BUN/Creatinine Ratio (10-20) Glucose (70-99) mg/dl Calcium (8.5-10.1) mg/dl Phosphorus (2.5-4.9) mg/dl Magnesium (1.8-2.4) mg/dl Total Bilirubin (0.2-1) mg/dl AST (15-37) U/L ALT (12-78) U/L Alkaline Phosphatase (45-117) U/L Troponin I (0-0.045) ng/ml Total Protein (6.4-8.2) gm/dl Albumin (3.4-5.0) gm/dl Globulin (2.5-4.0) gm/dl Albumin/Globulin Ratio (0.9-2) Procalcitonin (0-0.5) ng/ml TSH (0.300-4.500) uIu/ml Urine Color Urine Appearance (Clear) Urine pH (4.5-7.5) Ur Specific [place] (1.000-1.030) Urine Protein (Negative) Urine Glucose (UA) (Negative) Urine Ketones (Negative) Urine Blood (Negative) Urine Nitrite (Negative) Urine Bilirubin (Negative) Urine Urobilinogen (Negative) Ur Leukocyte Esterase (Negative) Urine WBC (Auto) (0-5) /hpf Urine RBC (Auto) (0-4) /hpf U Hyaline Cast (Auto) (0-5) /lpf U Epithel Cells (Auto) (0-5) /lpf Urine Bacteria (Auto) (Negative) Urine Yeast COVID-19 Eval Order SARS-CoV-2 (PCR) NEGATIVE (Negative) Influenza Type A (PCR) Negative (Neg) Influenza Type B (PCR) Negative (Neg) RSV (RT-PCR) Negative (Neg) Administered Medications Lactated Ringer's (Lr) 1,000 mls @ 80 mls/hr IV .[id number] CHARLINE Stop: 02/19/21 22:14 Last Admin: 01/20/21 22:15 Dose: 80 mls/hr Documented by: [id number] Discontinued Medications Carbidopa/Levodopa (Carbidopa/Levodopa 25/100mg Tab) 1 tab PO NOW STA Stop: 01/20/21 20:20 Last Admin: 01/20/21 20:49 Dose: 1 tab Documented by: [id number] Sodium Chloride (Nss 1000ml) 1,000 mls @ 999 mls/hr IV .[id number] ONE Stop: 01/20/21 18:36 Last Infusion: 01/20/21 19:05 Dose: 0 mls/hr Documented by: [id number] Admin: 01/20/21 18:00 Dose: 999 mls/hr Documented by: [id number] Levofloxacin/Dextrose (Levaquin/D5w) 750 mg in 150 mls @ 100 mls/hr IV NOW STA Stop: 01/20/21 21:46 Last Admin: 01/20/21 21:07 Dose: Not Given Documented by: [id number] Imaging Data Radiologist's Impression: Chest X-Ray 01/20/21 17:36 XR chest 1V portable HISTORY: SEPSIS COMPARISON: Chest 08/30/2019. FINDINGS: The cardiac silhouette remains mildly enlarged. No focal lung consolidations to suggest pneumonia. No evidence for pulmonary edema. No pleural effusions. No pneumothorax. Slightly rotated study. IMPRESSION: No significant change compared to the prior study. No acute process. ACT 112: Negative or not required by law. Electronically signed by: Bernard Howard M.D. 01/20/2021 6:[address] 01/20/21 17:[address] DOSE: 3344.68 mGy.cm HISTORY: confusion TECHNIQUE: Multiaxial CT images of the head were performed without the use of intravenous contrast. Automated exposure control was utilized for this study. A dose lowering technique was utilized adhering to the principles of ALARA. Comparison: 12/28/2020. Findings: The paranasal sinuses and mastoid air cells are clear. The calvarium and skull base are intact. Stable 8 mm hypodense focus within the left parietal lobe on image 27. This was previously described as a cavernous hemangioma. No acute hemorrhage identified. Motion artifact. No definite hematoma, midline shift, or acute infarct. Impression: No significant change compared to the prior study. No acute intracranial abnormality. ACT 112: Negative or not required by law. Electronically signed by: Bernard Howard M.D. 01/20/2021 7:09 PM Discharge Plan Visit Data Chief Complaint: Altered Mental Status Stated Complaint: AMS ED Provider: Jose Zhang Discharge Problem: Acute UTI, Acute kidney injury, Parkinson disease Patient Disposition: Admitted As Inpatient Discharge Instructions Interventions: ED Discharge Assessment Last Done: 01/20/21 22:20
[2021-01-20 18:46] LABS: Influenza A virus by PCR Negative (Neg); Influenza B virus by PCR Negative (Neg); RSV by PCR Negative (Neg); SARS CoV2 RNA(COVID-19) InHosp NEGATIVE (Negative)
--- NOTE | 2021-01-20 19:10 | CT Scan Report ---
HEAD CT NONCONTRAST CT DOSE: 3344.68 mGy.cm HISTORY: confusion TECHNIQUE: Multiaxial CT images of the head were performed without the use of intravenous contrast. A utomated exposure control was utilized for this study. A dose lowering technique was utilized adheri ng to the principles of ALARA. Comparison: 12/28/2020. Findings: The paranasal sinuses and mastoid air cells are clear. The calvarium and skull base are int act. Stable 8 mm hypodense focus within the left parietal lobe on image 27. This was previously descr ibed as a cavernous hemangioma. No acute hemorrhage identified. Motion artifact. No definite hematoma , midline shift, or acute infarct. Impression: No significant change compared to the prior study. No acute intracranial abnormality. ACT 112: Negative or not required by law. Electronically signed by: Bernard Howard M.D. 01/20/2021 7:09 PM
[2021-01-20] MEDS ORDERED: levoFLOXacin/D5W 750 MG/150 ML BAG IV STA (20:17)
[2021-01-20] MEDS ORDERED: CARBIDOPA/LEVODOPA 25/100MG TAB PO STA (20:19)
--- NOTE | 2021-01-20 20:55 | History & Physical Report ---
Date of Service January 20, 2021 Assessment & Plan (1) Acute kidney injury: Reports decreased oral intake over past few days, will follow clinical course closely. - Patient baseline DOMESTIC MAID 1.13-1.3, BUN 20 baseline 13-16 - Will provide gentle IVF tonight- LR 80 ml per hour - Avoid nephrotoxic agents - BMP in the morning (2) Paroxysmal atrial fibrillation: Currently in NSR - Continue Dofetilide and Eliquis (3) BPH w urinary obs/LUTS: Recovering well, no acute issues follow output (4) Parkinson disease: No acute issues - Continue home medications - Patient is slow but functioning well and able to assist with his care (5) Diabetes: Glucose controlled will leave on oral agents - If patient status should change or infeciton becomes evident, will change booth attendant to SSI and bolus coverage History of Present Illness Chief Complaint: weakness Primary Care Provider: Kostas Hannah 70 YOM with past medical history of Bladder stones and frequent UTI, DM, HTN, Parkinson, Afib on dofetilide and Eliquis, BPH. Patient had a TURP with LUTS done on 14Nov2020. He comes into the emergency room today via EMS secondary to feeling week and tripping on a carpet. The patient says he tripped and stumbled onto his chair. He otherwise states he feels well. In the EMD the patient had a CXR, CT of the head and Urinalysis performed, as well as routine blood work. The patient's lab work did reveal an slight JERRELL. He is not febrile, blood and urine cultures are pending. His urine has >30 epithelial cells. He denies fevers, chills, pains. Will admit for IVF and monitoring of inflammatory markers. Patient is alert and nontoxic appearing. Patient does not have WBC, NLR normal, denies symptoms, PCT negative. COVID negative Allergies Allergy/AdvReac Type Severity Reaction Status Date / Time ciprofloxacin [From Cipro] Allergy Unknown Unknown Verified 01/20/21 17:27 Home Medications Medication Instructions Recorded Confirmed Type carbidopa-levodopa [Sinemet] 1 tab PO TID 04/12/19 01/20/21 History cranberry 500 mg PO QAM 04/12/19 01/20/21 History levetiracetam [Keppra] 500 mg PO BID 04/12/19 01/20/21 History metformin 1,000 mg PO BIDM 04/12/19 01/20/21 History tamsulosin 0.4 mg PO HS 04/12/19 01/20/21 History cholecalciferol (vitamin D3) 2,000 unit PO QAM 08/30/19 01/20/21 History [Vitamin D3] Eliquis 5 mg PO BID 10/28/20 01/20/21 History ascorbic acid (vitamin C) [Vitamin 500 mg PO BID 10/28/20 01/20/21 History C] aspirin 81 mg PO QAM 10/28/20 01/20/21 History cyanocobalamin (vitamin B-12) 1,000 mcg PO QAM 10/28/20 01/20/21 History glipizide 2.5 mg PO DAILY 10/28/20 01/20/21 History methenamine hippurate 1 g PO BID 10/28/20 01/20/21 History pantoprazole 40 mg PO QAM 10/28/20 01/20/21 History dofetilide 250 mcg PO BID 12/28/20 01/20/21 History acetaminophen [Tylenol] 650 mg PO Q6H PRN 01/20/21 01/20/21 History docusate sodium [Colace] 100 mg PO DAILY PRN 01/20/21 01/20/21 History donepezil 5 mg PO HS 01/20/21 01/20/21 History lactulose 20 g PO 3XWK 01/20/21 01/20/21 History magnesium oxide 400 mg PO QAM 01/20/21 01/20/21 History propranolol 5 mg PO DAILY 01/20/21 01/20/21 History Past Med/Surg History Medical History Acute confusion "Metabolic encephalopathy likely secondary to UTI.. Treat UTI" per discharge summary from 11/02/20 BPH w urinary obs/LUTS Dementia just related to UTI's > no dementia Diabetes NIDDM HTN (hypertension) Hx of seizure disorder Per records- patient on Keppra. Per nursing assessment- unsure why this is on record- no known recent seizures Kidney stones Parkinson disease Just fine tremor per nursing assessment "Severe" per 11/02/20 discharge summary Paroxysmal atrial fibrillation dx 1 yrs ago> Eliquis> no pacer> follows Dr. Sanz in [place] Surgical History History of cataract surgery bilat History of cystoscopy History of tooth extraction Family History Mother Diabetes Other No pertinent family history in first degree relatives Social History Smoking Status: Never smoker Second Hand Exposure: No; Do You Dip or Chew Tobacco: No; Tobacco Cessation Education Requested by Patient: No Hx Alcohol Use: Yes Alcohol type: beer Hx Substance Use: No Preferred Language: Telugu Communication Ability: Effective Visual Impairment: No Limitations In Mold Coater Required: No Beliefs That Will Affect Care: Amish Amish Beliefs: Druze marital status: Current Living Situation: Spouse Current Living Situation Comment: normally with spouse at home Other Information That Helps Us Care for You: No Feels Safe at Home: Yes Safety Concerns: Feels Safe At This Time Assistive Devices: Walker Review of Systems Review of Systems: REVIEW OF SYSTEMS: Constitutional: No fever, sweats or chills Eyes: No diplopia, no worsening or blurred vision ENT: normal hearing, no trouble swallowing Respiratory: No cough, sputum, dyspnea at rest or on exertion Cardiovascular: No chest pain, tightness or palpitations Abdomen: No pain, nausea, vomiting, diarrhea or constipation Musculoskeletal: No joint pain, calf pain, swelling Neurologic: (+) weakness, numbness/tingling, or balance problems Psychiatric: No anxiety or depression Skin: No rash or itch Physical Exam Physical Exam: PHYSICAL EXAM: General: awake, alert, no apparent distress Head: Normocephalic, atraumatic ENT: PERRL, EOMI, no pharyngeal exudate, mucous membranes moist Neuro: AAO x 3, speech clear and appropriate, strength intact bilaterally 5/5, sensation intact and equal all extremities and dermatomes, no pronator drift Chest: equal rise and fall of the chest, no accessory muscle use, no heaves or thrills, Clear to auscultation, on room air, Cardiac: Regular rate and rhythm, telemetry reviewed, skin warm dry, cap refill <3 seconds, peripheral pulses +2 no JVD, no murmur, no edema GI: NABS x 4 quadrants, soft, nontender to palpation, no rebound, guarding or tenderness : Spontaneously voiding, no pain, no CVA tenderness, Extremities: Normal inspection, no peripheral edema or erythema, calfs nontender to palpation Psych: Patient slow in response with Parkinson, but appropriate and following commands. Skin: no rash or erythema Results & Data Results & Data ([facility]) Vital Signs (Past 12 Hours) Vital Signs Temp Pulse Resp BP Pulse Ox 01/20/21 20:00 78 20 166/87 H 98 01/20/21 19:31 81 19 138/85 98 01/20/21 19:00 70 16 130/68 97 01/20/21 18:43 69 24 111/63 98 01/20/21 18:00 82 19 155/74 H 01/20/21 17:36 20 98 01/20/21 16:53 37.3 C 75 16 108/53 L 97 Laboratory Results Abnormal lab results 01/20/21 01/20/21 01/20/21 Range/Units 17:07 17:07 17:35 WBC 4.46 L (4.8-10.8) K/uL RBC 3.96 L (4.7-6.1) M/uL Hgb 11.0 L (14.0-18.0) g/dL Hct 31.6 L (42-52) % MCV 79.8 L (80-100) fL BUN 20 H (7-18) mg/dl Creatinine 1.42 H (0.6-1.4) mg/dl AST < 3 L (15-37) U/L Urine Blood 3+ H (Negative) Ur Leukocyte Esterase 2+ H (Negative) Urine WBC (Auto) >30 H (0-5) /hpf Urine RBC (Auto) 5-10 H (0-4) /hpf U Epithel Cells (Auto) >30 H (0-5) /lpf Diagnostic Findings HEAD CT NONCONTRAST CT DOSE: 3344.68 mGy.cm HISTORY: confusion TECHNIQUE: Multiaxial CT images of the head were performed without the use of intravenous contrast. Automated exposure control was utilized for this study. A dose lowering technique was utilized adhering to the principles of ALARA. Comparison: 12/28/2020. Findings: The paranasal sinuses and mastoid air cells are clear. The calvarium and skull base are intact. Stable 8 mm hypodense focus within the left parietal lobe on image 27. This was previously described as a cavernous hemangioma. No acute hemorrhage identified. Motion artifact. No definite hematoma, midline shift, or acute infarct. Impression: No significant change compared to the prior study. No acute intracranial abnormality. XR chest 1V portable HISTORY: SEPSIS COMPARISON: Chest 08/30/2019. FINDINGS: The cardiac silhouette remains mildly enlarged. No focal lung consoli dations to suggest pneumonia. No evidence for pulmonary edema. No pleural effusions. No pneumothorax. Slightly rotated study. IMPRESSION: No significant change compared to the prior study. No acute process. Medications Administered Discontinued Medications Carbidopa/Levodopa (Carbidopa/Levodopa 25/100mg Tab) 1 tab PO NOW STA Stop: 01/20/21 20:20 Last Admin: 01/20/21 20:49 Dose: 1 tab Documented by: [id number] Sodium Chloride (Nss 1000ml) 1,000 mls @ 999 mls/hr IV .Q1H1M ONE Stop: 01/20/21 18:36 Last Infusion: 01/20/21 19:05 Dose: 0 mls/hr Documented by: [id number] Admin: 01/20/21 18:00 Dose: 999 mls/hr Documented by: [id number] Levofloxacin/Dextrose (Levaquin/D5w) 750 mg in 150 mls @ 100 mls/hr IV NOW STA Stop: 01/20/21 21:46 Last Admin: 01/20/21 21:07 Dose: Not Given Documented by: [id number] ECG Additional Comments: Sinus rhythm with Premature supraventricular complexes Minimal voltage criteria for LVH, may be normal variant Borderline ECG Code Status & VTE Plan Code Status CODE: FULL VTE: SCD's, Heparin VTE Prophylaxis Plan VTE Prophylaxis will be ordered: Yes Supervising Physician Co-Signing Physician Notes Attending addendum: I have physically seen this patient, have supervised the FLORENTINO's activities, and agree with the H&P unless as otherwise noted. Assessment and Plan: Generalized fatigue and weakness- In part secondary to decreased oral intake, parkinsonism. Consult PT/OT JERRELL- Creatinine 1.42 upon admission Gentle rehydration with LR at 80 mils per hour, repeat laboratories in a.m. PAF- Continue dofetilide and Eliquis Diabetes mellitus- Hold glipizide and Metformin. Monitor sugar levels closely, to see if there is an association between symptoms and hypoglycemia Accu-Cheks before meals and at bedtime with NovoLog coverage per scale Parkinson's/dementia- Continue usual home medications: Donepezil, carbidopa/levodopa Remaining orders and notations as noted PG Care Time/CCT Total # of Minutes Spent Total Time Spent with Patient: Total time spent is greater than 50% in coordination of care (as documented) at patient's floor/unit and/or counseling patient: Coding Level of Care Code 32393 OBS Care - Level 2 Diagnoses Acute kidney injury N17.9 Paroxysmal atrial fibrillation I48.0 BPH w urinary obs/LUTS N40.1; N13.8 Parkinson disease G20 Diabetes E11.9 Diabetes mellitus complication status: without complication Diabetes mellitus chcf insulin use: without terminal computer operator use Diabetes mellitus type: type 2 (1) Diabetes Diabetes mellitus complication status: without complication Diabetes mellitus chcf insulin use: without terminal computer operator use Diabetes mellitus type: type 2 Qualified Code(s): E11.9 - Type 2 diabetes mellitus without complications
[2021-01-20] MEDS: LACTATED RINGER'S 1,000 ML IV SCH (22:15)
[2021-01-20] MEDS ORDERED: DOCUSATE SODIUM 100 MG CAP PO PRN (23:22)
[2021-01-20] MEDS ORDERED: POLYETHYLENE (MIRALAX) 17 GM PACK PO PRN (23:22)
[2021-01-20] MEDS ORDERED: ACETAMINOPHEN 325 MG TAB PO PRN ×2 (23:22)
[2021-01-21 06:23] LABS: Basophils # (auto) 0.02 K/uL (0-0.2); Basophils % (auto) 0.6 %; Eosinophils # (auto) 0.12 K/uL (0-0.5); Eosinophils % (auto) 3.7 %; Hematocrit (blood only) 32.1 % (42-52); Hemoglobin 10.9 g/dL (14.0-18.0); Lymphocytes # (auto) 1.19 K/uL (1.2-3.4); Lymphocytes % (auto) 36.6 %; Mean Corpuscular Hemoglobin 27.5 pg (25-34); Mean Corpuscular Volume 80.9 fL (80-100); Mean Platelet Volume 9.5 fL (7.4-10.4); Monocytes # (auto) 0.45 K/uL (0.11-0.59); Monocytes % (auto) 13.8 %; Neutrophils # (auto) 1.47 K/uL (1.4-6.5); Neutrophils % (auto) 45.3 %; Platelet Count 248 K/uL (130-400); RDW Coefficient of Variation 13.4 % (11.5-14.5); RDW Standard Deviation 39.5 fL (36.4-46.3); Red Blood Count 3.97 M/uL (4.7-6.1); White Blood Count 3.25 K/uL (4.8-10.8)
[2021-01-21 06:48] LABS: BUN Creatinine Ratio 13.6 (10-20); Calcium 8.7 mg/dl (8.5-10.1); Creatinine Clr Calc Pharmacy 70.2 ml/min; Est GFR (African American) 81.4; Est GFR (Non-African American) 70.3; Magnesium 2.2 mg/dl (1.8-2.4); Potassium 4.2 mmol/L (3.5-5.1)
[2021-01-21] MEDS ORDERED: metFORMIN HCL 500 MG TAB PO SCH (08:00)
[2021-01-21] MEDS ORDERED: CYANOCOBALAMIN 500 MCG TABLET (VITAMIN B-12) PO SCH (09:00)
[2021-01-21] MEDS ORDERED: ASPIRIN 81 MG ECTAB PO SCH (09:00)
[2021-01-21] MEDS ORDERED: PANTOprazole 40 MG TAB PO SCH (09:00)
[2021-01-21] MEDS ORDERED: PROPRANOLOL HCL 20 MG TAB PO SCH (09:00)
[2021-01-21] MEDS ORDERED: ASCORBIC ACID 500 MG TAB PO SCH (09:00)
[2021-01-21] MEDS ORDERED: HEPARIN SOD 5,000 UNIT/0.5 ML VIAL SQ SCH (09:00)
[2021-01-21] MEDS ORDERED: glipiZIDE ER 2.5 MG TABCR PO SCH (09:00)
[2021-01-21] MEDS ORDERED: DOFETILIDE 125 MCG CAPSULE PO SCH (09:00)
[2021-01-21] MEDS ORDERED: APIXABAN 5 MG TABLET PO SCH (09:00)
[2021-01-21] MEDS ORDERED: MAGNESIUM OXIDE 400 MG TAB PO SCH (09:00)
[2021-01-21] MEDS ORDERED: NON-FORMULARY MEDICATION (Cranberry 500 mg Capsule) PO SCH (09:00)
[2021-01-21] MEDS ORDERED: levETIRAcetam 500 MG TAB PO SCH (09:00)
[2021-01-21] MEDS ORDERED: CHOLECALCIFEROL 1,000 UNITS 25 MCG TAB PO SCH (09:00)
[2021-01-21] MEDS ORDERED: METHENAMINE HIPPURATE 1 GM TAB PO SCH (09:00)
[2021-01-21] MEDS: CARBIDOPA/LEVODOPA 25/100MG TAB PO SCH ×2 (09:51→14:15)
[2021-01-21] MEDS: LACTATED RINGER'S 1,000 ML IV SCH (12:30)
[2021-01-21] MEDS ORDERED: OPTIRAY 320 100ml IV ONE (12:42)
--- NOTE | 2021-01-21 13:22 | CT Scan Report ---
CT OF THE ABDOMEN AND PELVIS WITH AND WITHOUT CONTRAST HEMATURIA PROTOCOL CLINICAL HISTORY: Hematuria s/p TURP COMPARISON STUDY: None. TECHNIQUE: Unenhanced and split bolus phase imaging of the abdomen and pelvis was performed. Intraven ous injection of 93 cc Optiray 320 IV was uneventful. Automated exposure control was utilized for th e study. A dose lowering technique was utilized adhering to the principles of ALARA. CT DOSE: 1398.79 mGycm FINDINGS: No renal, ureteral or bladder calculi are present. No upper tract urothelial lesions are id entified although the right ureter is incompletely opacified. There is no hydronephrosis or hydrouret er. No bladder lesion is identified although evaluation of the bladder is suboptimal given incomplete opacification. Note is made of a TURP defect within the prostate. There is no pelvic or abdominal ly mphadenopathy. Left renal cyst is noted. Several subcentimeter bilateral renal lesions are too small to characterize. Numerous hepatic cysts are present. The spleen, adrenal glands and pancreas are unre markable with exception of pancreatic glandular atrophy. No evidence for a bowel obstruction. There i s a moderate amount of stool within the colon and a large amount stool within the rectum. No suspicio us osseous lesions are present. IMPRESSION: 1. No urinary calculi, hydronephrosis or upper tract urothelial lesions although right ureter is inco mpletely opacified. 2. No bladder abnormality identified although bladder evaluation suboptimal given incomplete opacific ation. 3. No acute process within the abdomen or pelvis. 4. Moderate amount of stool within the colon and large amount stool within the rectum. No bowel obstr uction. ACT 112: Negative or not required by law. Electronically signed by: Johnathan Spring M.D. 01/21/2021 1:20 PM
[2021-01-21] MEDS ORDERED: SOD PHOSPHATE/SOD BIPHOSPHATE ENEMA 132 ML BTL PR STA (14:06)
[2021-01-21] MEDS ORDERED: Nursing to Pharmacy Communication SCH (15:45)
--- NOTE | 2021-01-21 20:07 | Billing Data ---
Date of Service January 21, 2021 Coding Level of Care Code 89109 OBS Care - Level 3
[2021-01-21] MEDS ORDERED: TAMSULOSIN HCL 0.4 MG CAP PO SCH (21:00)
[2021-01-21] MEDS ORDERED: DONEPEZIL HCL 5 MG TAB PO SCH (21:00)
[2021-01-22 06:25] LABS: Estimated Average Glucose 143 mg/dl; Hemoglobin A1C 6.6 % (4.5-5.6)
--- NOTE | 2021-01-22 06:27 | Electrocardiogram Report ---
Test Reason : Blood Pressure : / mmHG Vent. Rate : 071 BPM Atrial Rate : 071 BPM P-R Int : 154 ms QRS Dur : 112 ms QT Int : 400 ms P-R-T Axes : 044 -46 039 degrees QTc Int : 434 ms Normal sinus rhythm Left anterior fascicular block Voltage criteria for left ventricular hypertrophy Abnormal ECG When compared with ECG of 28-DEC-2020 20:44, Premature supraventricular complexes are no longer Present QRS duration has increased Confirmed by Saw Luke ([id number]) on 01/22/2021 6:27:17 AM Referred By: REFERRED SELF Confirmed By:Saw Luke
[2021-01-22] MEDS ORDERED: LACTULOSE SYRUP 20 GM/30 ML UDC PO SCH (09:00)
--- NOTE | 2021-01-26 10:59 | Discharge Summary ---
Date of Service January 21, 2021 Admission HPI Per Admitting Provider 70 YOM with past medical history of Bladder stones and frequent UTI, DM, HTN, Parkinson, Afib on dofetilide and Eliquis, BPH. Patient had a TURP with LUTS done on 14Nov2020. He comes into the emergency room today via EMS secondary to feeling week and tripping on a carpet. The patient says he tripped and stumbled onto his chair. He otherwise states he feels well. In the EMD the patient had a CXR, CT of the head and Urinalysis performed, as well as routine blood work. The patient's lab work did reveal an slight JERRELL. He is not febrile, blood and urine cultures are pending. His urine has >30 epithelial cells. He denies fevers, chills, pains. Will admit for IVF and monitoring of inflammatory markers. Patient is alert and nontoxic appearing. Patient does not have WBC, NLR normal, denies symptoms, PCT negative. COVID negative Principal Diagnosis acute kidney infection Discharge Exam General: awake, alert, no apparent distress Head: Normocephalic, atraumatic ENT: PERRL, EOMI, no pharyngeal exudate, mucous membranes moist Neuro: AAO x 3, speech clear and appropriate, strength intact bilaterally 5/5, sensation intact and equal all extremities and dermatomes, no pronator drift Chest: equal rise and fall of the chest, no accessory muscle use, no heaves or thrills, Clear to auscultation, on room air, Cardiac: Regular rate and rhythm, telemetry reviewed, skin warm dry, cap refill <3 seconds, peripheral pulses +2 no JVD, no murmur, no edema GI: NABS x 4 quadrants, soft, nontender to palpation, no rebound, guarding or tenderness : Spontaneously voiding, no pain, no CVA tenderness, Extremities: Normal inspection, no peripheral edema or erythema, calfs nontender to palpation Psych: Patient slow in response with Parkinson, but appropriate and following commands. Skin: no rash or erythema Discharge Data Allergies Allergy/AdvReac Type Severity Reaction Status Date / Time ciprofloxacin [From Cipro] Allergy Unknown Unknown Verified 01/20/21 17:27 Consultations 01/20/21 20:16 ED Decision to Admit Stat Ordered Studies 01/20/21 17:36 CT head/brain wo con Stat 01/21/21 11:52 CT abdomen pelvis wo/w con Urgent Hospital Course (1) Acute kidney injury: Reports decreased oral intake over past few days, will follow clinical course closely. 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.13-1.3, BUN 20 baseline 13-16 - provided gentle IVF- LR 80 ml per hour; - Avoid nephrotoxic agents - BMP in the morning (2) Paroxysmal atrial fibrillation: Currently in NSR - Continue Dofetilide and Eliquis (3) BPH w urinary obs/LUTS: Recovering well, no acute issues follow output (4) Parkinson disease: No acute issues - Continue home medications - Patient is slow but functioning well and able to assist with his care (5) Diabetes: Glucose controlled will leave on oral agents Total Time Total Time Spent Total Time Spent (In Minutes): 32 Total Time Includes: Examination of the Patient, Discharge Planning and Me dication Reconciliation Discharge Plan Discharge Items Patient Disposition: Home - Home Health Services Reason For Visit: WEAKNESS Discharge Diagnosis: WEAKNESS Activity: Resume your previous activity Non-emergency contact: Primary Care Provider Call non-emergency contact if: you have any medication questions Follow-up/Referrals: Kostas Hannah [Primary Care Provider] - Diet: Carb Count or DM1 Addtl Attending Provider Instructions: You were found to have weakness, this was likely secondary to stressed kidney from being slightly dehydrated. Your kidney numbers improved and you were evaluated by Physical therapy who recommended HOME HEALTH. Recommend followup with PCP in 1-2 weeks. Resume home meds. Will followup with Dr. Zhou within 1 month. Will need scope to assess urinary tract, will likely be completed in 3 months. Pending Studies at Discharge: No Stand-Alone Forms: My [facility] [employer], Smoking Cessation Medications and DC Order Prescriptions: Continued levetiracetam [Keppra] 500 mg Tablet 500 mg PO BID RF: 0 metformin 1,000 mg Tablet 1,000 mg PO BIDM RF: 0 tamsulosin 0.4 mg Capsule 0.4 mg PO HS RF: 0 carbidopa-levodopa [Sinemet] 25-100 mg tablet 1 tab PO TID RF: 0 cranberry 500 mg Capsule 500 mg PO QAM RF: 0 cholecalciferol (vitamin D3) [Vitamin D3] 2,000 unit Tablet 2,000 unit PO QAM RF: 0 cyanocobalamin (vitamin B-12) 1,000 mcg Tablet 1,000 mcg PO QAM RF: 0 aspirin 81 mg Tablet,Delayed Release (Dr/Ec) 81 mg PO QAM RF: 0 methenamine hippurate 1 gram tablet 1 g PO BID RF: 0 ascorbic acid (vitamin C) [Vitamin C] 500 mg Tablet 500 mg PO BID RF: 0 glipizide 2.5 mg tablet extended release 24hr 2.5 mg PO DAILY RF: 0 pantoprazole 40 mg tablet,delayed release (DR/EC) 40 mg PO QAM RF: 0 Eliquis 5 mg tablet 5 mg PO BID RF: 0 dofetilide 250 mcg capsule 250 mcg PO BID RF: 0 acetaminophen [Tylenol] 325 mg Tablet 650 mg PO Q6H PRN (Reason: Pain) RF: 0 donepezil 5 mg Tablet 5 mg PO HS RF: 0 magnesium oxide 400 mg (241.3 mg magnesium) Tablet 400 mg PO QAM RF: 0 propranolol 20 mg Tablet 5 mg PO DAILY RF: 0 lactulose 10 gram/15 mL Solution 20 g PO 3XWK RF: 0 docusate sodium [Colace] 100 mg capsule 100 mg PO DAILY PRN (Reason: Constipation) RF: 0 Discharge Orders: Discharge Order (Routine); Ordered 01/21/21 Ordered By: Nikhil Guzmán Admission Data Admit Date/Time: 01/20/21 22:03 Attending Provider: Nikhil Guzmán Admit Provider: Ori Pascual Primary Care Provider: Kostas Hannah Other Interventions: Discharge Summary Assessment (RN) Last Done: 01/21/21 16:39 Coding Level of Care Code D/C Day Management >30 mins Diagnoses Acute kidney injury N17.9 Paroxysmal atrial fibrillation I48.0 BPH w urinary obs/LUTS N40.1; N13.8 Parkinson disease G20 Diabetes E11.9 Diabetes mellitus type: type 2 Diabetes mellitus termination clerk insulin use: without detention use Diabetes mellitus complication status: without complication Time Spent (min) 32
== END 2021-01-21 17:28 | disposition home health service (06) ==
LOC: 3N 16:49 → ED 16:49 → SUATTDRO 22:03 → 3N 22:20

== ENCOUNTER 2021-11-19 16:59 | Inpatient (IN) ==
[2021-11-19] MEDS ORDERED: cefTRIAXone SODIUM 1,000 MG/50 ML BAG IV STA (17:24)
--- NOTE | 2021-11-19 17:28 | Emergency Department Note ---
Impression & Plan Weakness, Constipation, Confusion, Dehydration, S/P TURP ED Provider Note NAME: SOHAM HALE AGE: 70 SEX: M : 1950 ARRIVES VIA: Ambulance INFORMANT: [ems, nursing] ED PROVIDER(S): [Ulises Scanlon MD] CHIEF COMPLAINT: GI assessment, sleepy HISTORY OF PRESENT ILLNESS: The patient is a 70-year-old male with dementia. He had a transurethral resection of the prostate with a bladder neck incision done a week ago. He has a Borrego catheter in place. As per EMS and the nursing staff, the patient has not had a bowel movement in several days. He is more sleepy and seems more lethargic. There has been no fever, no vomiting. The patient himself has no current complaints but is an unreliable historian. There is mention of a possible elevated ammonia level. The patient was sent here for evaluation. Given the mental state, no further history obtainable. REVIEW OF SYSTEMS: Unobtainable given the mental state. PMHx/PSHx: See Below SOCIAL HISTORY: See Below. PHYSICAL EXAM: GENERAL: Patient is in no acute distress. HEENT: No acute trauma, normocephalic atraumatic, mucous membranes moist, no nasal congestion, no scleral icterus. NECK: No stridor, no adenopathy, no meningismus, trachea is midline. LUNGS: Clear to auscultation bilaterally, no wheeze, no rhonchi, breath sounds equal. HEART: Without murmurs gallops or rubs, regular rate and rhythm. ABDOMEN: Soft, nontender, bowel sounds positive, no hernias, no peritonitis. Borrego catheter in place draining clear to yellow urine. EXTREMITIES: No cyanosis, full range of motion of all the joints without pain or difficulty, no signs for acute trauma. NEUROLOGIC: Awake but does seem a bit sleepy, no acute motor or sensory deficits, no focal weakness. Can answer yes and no. No obvious speech slur. SKIN: No rash, no jaundice, no diaphoresis. DIFFERENTIAL DIAGNOSIS: Infection, dehydration, COVID-19, UTI, influenza, renal or liver failure, ammonia level elevation, metabolic abnormality, hypo/hyperglycemia, electrolyte disturbance, anemia, hypoxia, cardiac sources, intracerebral event, toxicologic issues, stroke, TIA, as well as other pathologies. EMERGENCY DEPARTMENT COURSE/PROCEDURES: ECG: Indication was weakness. The ECG shows a sinus rhythm with PACs. The rate is 64. There is some baseline artifact. LVH is present. There is no concerning ST elevation. The QTc is 425. Continuous Cardiac Monitoring: An order was placed for continuous cardiac monitoring. The monitor shows a rate of 64 with normal sinus rhythm. MEDICAL DECISION MAKING: There is no leukocytosis. No concerning anemia. No coagulopathy. Sodium is a bit low but not in need of emergent correction. No renal failure. Lactic acid level was a bit elevated consistent with infection and/or dehydration. No concerning liver enzyme elevation. Ammonia level was not elevated. ECG shows a sinus rhythm, no obvious ischemia. Cardiac enzyme testing x1 is not consistent with acute cardiac injury. Procalcitonin level was not elevated. The patient appeared to be in a euthyroid state. Urinalysis did not show infection. Covid testing returned negative. Chest x-ray did not show pneumonia or CHF. Brain CT showed no acute bleed or mass-effect. Abdominal and pelvis CT showed constipation, no bowel obstruction. On exam, the patient appeared a bit dehydrated and somewhat weak. No focal motor deficits. He was not toxic or febrile. The patient received IV saline for hydration. He received IV ceftriaxone as empiric antibiotic coverage. In short, the patient appears debilitated. He is dehydrated and weak and has not done well since his TURP procedure. I spoke to his over the phone. The patient is too weak for her to care for him. He cannot be discharged home in this condition. I spoke with the patient, I did speak with case management. The on-call hospitalist was consulted. The patient will likely require PT/OT and potentially rehab. Past Med/Surg History Medical History BPH w urinary obs/LUTS Cavernous angioma "left parietal lobe...consistent with a cavernous angioma which has previously bled...stable" per MRI brain 09/26/2021 report Diabetes NIDDM History of COVID-19 08/2020, asymptomatic HTN (hypertension) Hx of seizure disorder Per records hx seizure- patient on Keppra No known hx of seizures per Kidney stones hx Parkinson disease Paroxysmal atrial fibrillation on Eliquis, follows with Dr. Sanz/Nuha Surgical History H/O transurethral resection of prostate 11/20/2020: LMA#5, atraumatic x 1. No issues per anesthesia postop progress note. History of cataract surgery bilat History of cystoscopy History of tooth extraction Family History Mother Diabetes Other No pertinent family history in first degree relatives Social History Smoking Status: Never smoker Second Hand Exposure: No; Do You Dip or Chew Tobacco: No; Tobacco Cessation Education Requested by Patient: No Hx Alcohol Use: Yes Alcohol type: beer Hx Substance Use: No Preferred Language: Algerian Communication Ability: Effective Visual Impairment: No Limitations Mid Level Business Analyst Required: No Beliefs That Will Affect Care: None marital status: Current Living Situation: Spouse Current Living Situation Comment: normally with spouse at home How many Children do You have: 1 Other Information That Helps Us Care for You: No Feels Safe at Home: Yes Safety Concerns: Feels Safe At This Time Assistive Devices: Cane Allergies Allergies Allergy/AdvReac Type Severity Reaction Status Date / Time ciprofloxacin [From Cipro] Allergy Unknown Unknown Verified 11/19/21 19:12 Home Meds Home Medications Medication Instructions Recorded Confirmed carbidopa 25 mg-levodopa 100 mg 1 tab PO QID 04/12/19 11/19/21 tablet (Sinemet) cranberry 500 mg capsule 500 mg PO QAM 04/12/19 11/19/21 levetiracetam 500 mg tablet 500 mg PO BID 04/12/19 11/19/21 (Keppra) metformin 1,000 mg tablet 1,000 mg PO BID 04/12/19 11/19/21 cholecalciferol (vitamin D3) 50 2,000 unit PO QAM 08/30/19 11/19/21 mcg (2,000 unit) tablet (Vitamin D3) apixaban 5 mg tablet (Eliquis) 5 mg PO BID 10/28/20 11/19/21 ascorbic acid (vitamin C) 500 mg 500 mg PO BID 10/28/20 11/19/21 tablet (Vitamin C) cyanocobalamin (vitamin B-12) 1,000 mcg PO QAM 10/28/20 11/19/21 1,000 mcg tablet glipizide 2.5 mg tablet, extended 2.5 mg PO QAM 10/28/20 11/19/21 release 24 hr methenamine hippurate 1 gram tablet 1 g PO BID 10/28/20 11/19/21 pantoprazole 40 mg tablet,delayed 40 mg PO QAM 10/28/20 11/19/21 release dofetilide 250 mcg capsule 250 mcg PO BID 12/28/20 11/19/21 acetaminophen 325 mg tablet 650 mg PO Q6H PRN 01/20/21 11/19/21 (Tylenol) docusate sodium 100 mg capsule 100 mg PO BID 01/20/21 11/19/21 (Colace) donepezil 5 mg tablet 5 mg PO HS 01/20/21 11/19/21 lactulose 10 gram/15 mL oral 20 g PO [id number] 01/20/21 11/19/21 solution magnesium oxide 400 mg (241.3 mg 400 mg PO QAM 01/20/21 11/19/21 magnesium) tablet propranolol 20 mg tablet 10 mg PO QAM 01/20/21 11/19/21 bromocriptine 2.5 mg tablet 1.25 mg PO BID 07/02/21 11/19/21 entacapone 200 mg tablet (Comtan) 200 mg PO QID 11/08/21 11/19/21 Previous Rx's Medication Instructions Recorded cephalexin 500 mg capsule 500 mg PO BID 10 Days #20 cap 11/12/21 oxybutynin chloride 5 mg tablet 5 mg PO Q8H PRN #20 tab 11/12/21 phenazopyridine 200 mg tablet 200 mg PO Q8H PRN #10 tab 11/12/21 (Pyridium) tamsulosin 0.4 mg capsule 0.4 mg PO HS #30 cap 11/12/21 Results & Data (ED) Vital Signs Vital Signs - 24 hr 11/19/21 17:05 11/19/21 17:24 11/19/21 17:26 Temperature 36.9 C Temperature Source Temporal Artery Scan Pulse Rate 67 66 Pulse Rate from SpO2 Sensor 63 Respiratory Rate 20 22 Blood Pressure 134/75 Blood Pressure Mean 94 Pulse Oximetry 95 98 97 Oxygen Delivery Method Room Air Room Air Sepsis Recent Fever Within 48 Hours No Sepsis New/Unexplained Change in Mental Status N/A Sepsis Action Taken by Nursing No Action Required 11/19/21 18:00 11/19/21 19:00 11/19/21 20:00 Temperature Temperature Source Pulse Rate 65 66 112 H Pulse Rate from SpO2 Sensor 65 63 Respiratory Rate 18 14 Blood Pressure 127/68 145/86 H Blood Pressure Mean 87 105 Pulse Oximetry 96 95 Oxygen Delivery Method Sepsis Recent Fever Within 48 Hours Sepsis New/Unexplained Change in Mental Status Sepsis Action Taken by Halfway Medications Current Medication List: was personally reviewed by me Laboratory Data Attestation: I reviewed the patient's lab results. Result diagrams: 11/20/21 06:55 11/20/21 06:55 Lab Results 11/19/21 11/19/21 11/19/21 Range/Units 17:29 17:45 18:00 WBC (4.8-10.8) K/uL RBC (4.7-6.1) M/uL Hgb (14.0-18.0) g/dL Hct (42-52) % MCV (80-100) fL MCH (25-34) pg MCHC (32-36) g/dL RDW Std Deviation (36.4-46.3) fL RDW Coeff of Donovan (11.5-14.5) % Plt Count (130-400) K/uL MPV (7.4-10.4) fL Immature Gran % (Auto) % Neut % (Auto) % Lymph % (Auto) % [place] % (Auto) % Eos % (Auto) % Baso % (Auto) % Neut # (Auto) (1.4-6.5) K/uL Lymph # (Auto) (1.2-3.4) K/uL [facility] # (Auto) (0.11-0.59) K/uL Eos # (Auto) (0-0.5) K/uL Baso # (Auto) (0-0.2) K/uL Immature Gran # (Auto) (0.00-0.02) K/uL PT (9.0-12.0) Seconds INR (0.9-1.1) APTT (21.0-31.0) Seconds PTT Ratio Sodium (136-145) mmol/L Potassium (3.5-5.1) mmol/L Chloride (98-107) mmol/L Carbon Dioxide (21-32) mmol/L Anion Gap (3-11) BUN (6-23) mg/dl Creatinine (0.6-1.4) mg/dl Est Cr Clr Drug Dosing Est GFR ( Amer) ml/min Est GFR (Non-Af Amer) ml/min BUN/Creatinine Ratio (10-20) Glucose (70-99(Fasting)) mg/dl POC Glucose 96 (70-99) mg/dl Lactate 2.6 H* (0.4-2.0) mmol/L Calcium (8.5-10.1) mg/dl Magnesium (1.7-2.4) mg/dl Total Bilirubin (0.2-1.0) mg/dl AST (13-39) U/L ALT (7-52) U/L Alkaline Phosphatase (34-104) U/L Ammonia (18-72) umol/L Troponin I (0-0.04) ng/ml C-Reactive Protein (0-0.5) mg/dl Total Protein (6.0-8.3) gm/dl Albumin (3.4-5.0) gm/dl Globulin (2.5-4.0) gm/dl Albumin/Globulin Ratio (0.9-2) Procalcitonin (0-0.5) ng/ml TSH (0.300-4.500) uIu/ml Urine Color Yellow Urine Appearance Clear (Clear) Urine pH 5.0 (4.5-7.5) Ur Specific [facility] 1.007 (1.000-1.030) Urine Protein Negative (Negative) Urine Glucose (UA) Negative (Negative) Urine Ketones Negative (Negative) Urine Blood Trace H (Negative) Urine Nitrite Negative (Negative) Urine Bilirubin Negative (Negative) Urine Urobilinogen Negative (Negative) Ur Leukocyte Esterase Negative (Negative) Urine WBC (Auto) 0 (0-5) /hpf Urine RBC (Auto) 0-4 (0-4) /hpf U Hyaline Cast (Auto) 0 (0-5) /lpf U Epithel Cells (Auto) 0-5 (0-5) /lpf Urine Bacteria (Auto) Negative (Negative) 11/19/21 11/19/21 11/19/21 Range/Units 18:00 18:00 18:00 WBC 6.57 (4.8-10.8) K/uL RBC 4.34 L (4.7-6.1) M/uL Hgb 13.2 L (14.0-18.0) g/dL Hct 38.0 L (42-52) % MCV 87.6 (80-100) fL MCH 30.4 (25-34) pg MCHC 34.7 (32-36) g/dL RDW Std Deviation 40.5 (36.4-46.3) fL RDW Coeff of Donovan 12.4 (11.5-14.5) % Plt Count 262 (130-400) K/uL MPV 9.8 (7.4-10.4) fL Immature Gran % (Auto) 0.3 % Neut % (Auto) 68.1 % Lymph % (Auto) 21.8 % [place] % (Auto) 7.6 % Eos % (Auto) 1.7 % Baso % (Auto) 0.5 % Neut # (Auto) 4.48 (1.4-6.5) K/uL Lymph # (Auto) 1.43 (1.2-3.4) K/uL [facility] # (Auto) 0.50 (0.11-0.59) K/uL Eos # (Auto) 0.11 (0-0.5) K/uL Baso # (Auto) 0.03 (0-0.2) K/uL Immature Gran # (Auto) 0.02 (0.00-0.02) K/uL PT 10.2 (9.0-12.0) Seconds INR 1.0 (0.9-1.1) APTT 31.2 H (21.0-31.0) Seconds PTT Ratio 1.2 Sodium 133 L (136-145) mmol/L Potassium 4.6 (3.5-5.1) mmol/L Chloride 102 (98-107) mmol/L Carbon Dioxide 21 (21-32) mmol/L Anion Gap 10 (3-11) BUN 18 (6-23) mg/dl Creatinine 1.10 (0.6-1.4) mg/dl Est Cr Clr Drug Dosing Not Reportable Est GFR ( Amer) 77.9 ml/min Est GFR (Non-Af Amer) 67.2 ml/min BUN/Creatinine Ratio 16.4 (10-20) Glucose 93 (70-99(Fasting)) mg/dl POC Glucose (70-99) mg/dl Lactate (0.4-2.0) mmol/L Calcium 9.4 (8.5-10.1) mg/dl Magnesium 2.0 (1.7-2.4) mg/dl Total Bilirubin 0.3 (0.2-1.0) mg/dl AST 6 L (13-39) U/L ALT 14 (7-52) U/L Alkaline Phosphatase 75 (34-104) U/L Ammonia (18-72) umol/L Troponin I < 0.03 (0-0.04) ng/ml C-Reactive Protein (0-0.5) mg/dl Total Protein 7.0 (6.0-8.3) gm/dl Albumin 4.0 (3.4-5.0) gm/dl Globulin 3.0 (2.5-4.0) gm/dl Albumin/Globulin Ratio 1.3 (0.9-2) Procalcitonin (0-0.5) ng/ml TSH (0.300-4.500) uIu/ml Urine Color Urine Appearance (Clear) Urine pH (4.5-7.5) Ur Specific [facility] (1.000-1.030) Urine Protein (Negative) Urine Glucose (UA) (Negative) Urine Ketones (Negative) Urine Blood (Negative) Urine Nitrite (Negative) Urine Bilirubin (Negative) Urine Urobilinogen (Negative) Ur Leukocyte Esterase (Negative) Urine WBC (Auto) (0-5) /hpf Urine RBC (Auto) (0-4) /hpf U Hyaline Cast (Auto) (0-5) /lpf U Epithel Cells (Auto) (0-5) /lpf Urine Bacteria (Auto) (Negative) 11/19/21 11/19/21 11/19/21 Range/Units 18:00 18:00 18:00 WBC (4.8-10.8) K/uL RBC (4.7-6.1) M/uL Hgb (14.0-18.0) g/dL Hct (42-52) % MCV (80-100) fL MCH (25-34) pg MCHC (32-36) g/dL RDW Std Deviation (36.4-46.3) fL RDW Coeff of Donovan (11.5-14.5) % Plt Count (130-400) K/uL MPV (7.4-10.4) fL Immature Gran % (Auto) % Neut % (Auto) % Lymph % (Auto) % [place] % (Auto) % Eos % (Auto) % Baso % (Auto) % Neut # (Auto) (1.4-6.5) K/uL Lymph # (Auto) (1.2-3.4) K/uL [facility] # (Auto) (0.11-0.59) K/uL Eos # (Auto) (0-0.5) K/uL Baso # (Auto) (0-0.2) K/uL Immature Gran # (Auto) (0.00-0.02) K/uL PT (9.0-12.0) Seconds INR (0.9-1.1) APTT (21.0-31.0) Seconds PTT Ratio Sodium (136-145) mmol/L Potassium (3.5-5.1) mmol/L Chloride (98-107) mmol/L Carbon Dioxide (21-32) mmol/L Anion Gap (3-11) BUN (6-23) mg/dl Creatinine (0.6-1.4) mg/dl Est Cr Clr Drug Dosing Est GFR ( Amer) ml/min Est GFR (Non-Af Amer) ml/min BUN/Creatinine Ratio (10-20) Glucose (70-99(Fasting)) mg/dl POC Glucose (70-99) mg/dl Lactate (0.4-2.0) mmol/L Calcium (8.5-10.1) mg/dl Magnesium (1.7-2.4) mg/dl Total Bilirubin (0.2-1.0) mg/dl AST (13-39) U/L ALT (7-52) U/L Alkaline Phosphatase (34-104) U/L Ammonia 32.0 (18-72) umol/L Troponin I (0-0.04) ng/ml C-Reactive Protein < 0.50 (0-0.5) mg/dl Total Protein (6.0-8.3) gm/dl Albumin (3.4-5.0) gm/dl Globulin (2.5-4.0) gm/dl Albumin/Globulin Ratio (0.9-2) Procalcitonin (0-0.5) ng/ml TSH 4.424 (0.300-4.500) uIu/ml Urine Color Urine Appearance (Clear) Urine pH (4.5-7.5) Ur Specific [facility] (1.000-1.030) Urine Protein (Negative) Urine Glucose (UA) (Negative) Urine Ketones (Negative) Urine Blood (Negative) Urine Nitrite (Negative) Urine Bilirubin (Negative) Urine Urobilinogen (Negative) Ur Leukocyte Esterase (Negative) Urine WBC (Auto) (0-5) /hpf Urine RBC (Auto) (0-4) /hpf U Hyaline Cast (Auto) (0-5) /lpf U Epithel Cells (Auto) (0-5) /lpf Urine Bacteria (Auto) (Negative) 11/19/21 11/19/21 Range/Units 20:07 20:08 WBC (4.8-10.8) K/uL RBC (4.7-6.1) M/uL Hgb (14.0-18.0) g/dL Hct (42-52) % MCV (80-100) fL MCH (25-34) pg MCHC (32-36) g/dL RDW Std Deviation (36.4-46.3) fL RDW Coeff of Donovan (11.5-14.5) % Plt Count (130-400) K/uL MPV (7.4-10.4) fL Immature Gran % (Auto) % Neut % (Auto) % Lymph % (Auto) % [place] % (Auto) % Eos % (Auto) % Baso % (Auto) % Neut # (Auto) (1.4-6.5) K/uL Lymph # (Auto) (1.2-3.4) K/uL [facility] # (Auto) (0.11-0.59) K/uL Eos # (Auto) (0-0.5) K/uL Baso # (Auto) (0-0.2) K/uL Immature Gran # (Auto) (0.00-0.02) K/uL PT (9.0-12.0) Seconds INR (0.9-1.1) APTT (21.0-31.0) Seconds PTT Ratio Sodium (136-145) mmol/L Potassium (3.5-5.1) mmol/L Chloride (98-107) mmol/L Carbon Dioxide (21-32) mmol/L Anion Gap (3-11) BUN (6-23) mg/dl Creatinine (0.6-1.4) mg/dl Est Cr Clr Drug Dosing Est GFR ( Amer) ml/min Est GFR (Non-Af Amer) ml/min BUN/Creatinine Ratio (10-20) Glucose (70-99(Fasting)) mg/dl POC Glucose (70-99) mg/dl Lactate 1.8 (0.4-2.0) mmol/L Calcium (8.5-10.1) mg/dl Magnesium (1.7-2.4) mg/dl Total Bilirubin (0.2-1.0) mg/dl AST (13-39) U/L ALT (7-52) U/L Alkaline Phosphatase (34-104) U/L Ammonia (18-72) umol/L Troponin I (0-0.04) ng/ml C-Reactive Protein (0-0.5) mg/dl Total Protein (6.0-8.3) gm/dl Albumin (3.4-5.0) gm/dl Globulin (2.5-4.0) gm/dl Albumin/Globulin Ratio (0.9-2) Procalcitonin < 0.05 (0-0.5) ng/ml TSH (0.300-4.500) uIu/ml Urine Color Urine Appearance (Clear) Urine pH (4.5-7.5) Ur Specific [facility] (1.000-1.030) Urine Protein (Negative) Urine Glucose (UA) (Negative) Urine Ketones (Negative) Urine Blood (Negative) Urine Nitrite (Negative) Urine Bilirubin (Negative) Urine Urobilinogen (Negative) Ur Leukocyte Esterase (Negative) Urine WBC (Auto) (0-5) /hpf Urine RBC (Auto) (0-4) /hpf U Hyaline Cast (Auto) (0-5) /lpf U Epithel Cells (Auto) (0-5) /lpf Urine Bacteria (Auto) (Negative) Administered Medications Apixaban (Apixaban 5 Mg Tablet) 5 mg PO BID [facility] Stop: 12/20/21 08:59 Last Admin: 11/20/21 08:39 Dose: 5 mg Documented by: [id number] Ascorbic Acid (Ascorbic Acid 500 Mg Tab) 500 mg PO BID [facility] Stop: 12/20/21 08:59 Last Admin: 11/20/21 08:38 Dose: 500 mg Documented by: [id number] Bromocriptine Mesylate (Bromocriptine Mesylate 2.5 Mg Tab) 1.25 mg PO BID [facility] Stop: 12/20/21 08:59 Last Admin: 11/20/21 08:39 Dose: 1.25 mg Documented by: [id number] Carbidopa/Levodopa (Carbidopa/Levodopa 25/100mg Tab) 1 tab PO QID [facility] Stop: 12/20/21 00:29 Last Admin: 11/20/21 12:39 Dose: 1 tab Documented by: [id number] Admin: 11/20/21 08:40 Dose: 1 tab Documented by: [id number] Admin: 11/20/21 01:39 Dose: 1 tab Documented by: [id number] Cyanocobalamin (Cyanocobalamin 500 Mcg Tablet (Vitamin B-12)) 1,000 mcg PO QAM [facility] Stop: 12/20/21 08:59 Last Admin: 11/20/21 08:39 Dose: 1,000 mcg Documented by: [id number] Docusate Sodium (Docusate Sodium 100 Mg Cap) 100 mg PO BID [facility] Stop: 12/20/21 08:59 Last Admin: 11/20/21 08:40 Dose: 100 mg Documented by: [id number] Dofetilide (Dofetilide 125 Mcg Capsule) 250 mcg PO BID [facility] Stop: 12/20/21 08:59 Last Admin: 11/20/21 08:38 Dose: 250 mcg Documented by: [id number] Entacapone (Entacapone 200 Mg Tab) 200 mg PO QID [facility] Stop: 12/20/21 00:29 Last Admin: 11/20/21 12:39 Dose: 200 mg Documented by: [id number] Admin: 11/20/21 08:40 Dose: 200 mg Documented by: [id number] Admin: 11/20/21 01:39 Dose: 200 mg Documented by: [id number] Insulin Aspart (Insulin Aspart Per Unit) 0 units SC ACHS [facility] Stop: 12/20/21 07:29 Last Admin: 11/20/21 12:42 Dose: 3 units Documented by: [id number] Cosigned by: [id number] Admin: 11/20/21 08:37 Dose: Not Given Documented by: [id number] Levetiracetam (Levetiracetam 500 Mg Tab) 500 mg PO BID [facility] Stop: 12/20/21 08:59 Last Admin: 11/20/21 08:39 Dose: 500 mg Documented by: [id number] Magnesium Oxide (Magnesium Oxide 400 Mg Tab) 400 mg PO QAM [facility] Stop: 12/20/21 08:59 Last Admin: 11/20/21 08:38 Dose: 400 mg Documented by: [id number] Pantoprazole Sodium (Pantoprazole 40 Mg Tab) [facility] Stop: 12/20/21 08:59 Last Admin: 11/20/21 08:39 Dose: 40 mg Documented by: [id number] Polyethylene Glycol (Polyethylene (Miralax) 17 Gm Pack) 17 gm PO BID [facility] Stop: 12/20/21 08:59 Last Admin: 11/20/21 08:50 Dose: 17 gm Documented by: [id number] Propranolol HCl (Propranolol Hcl 10 Mg Tab) [facility] Stop: 12/20/21 08:59 Last Admin: 11/20/21 08:39 Dose: Not Given Documented by: [id number] Sennosides (Senna 8.6 Mg Tab) 17.2 mg PO [facility] Stop: 12/19/21 22:39 Last Admin: 11/20/21 08:47 Dose: 17.2 mg Documented by: [id number] Admin: 11/20/21 01:40 Dose: 17.2 mg Documented by: [id number] Vitamin D (Cholecalciferol 1,000 Units 25 Mcg Tab) 2,000 [facility] Stop: 12/20/21 08:59 Last Admin: 11/20/21 08:39 Dose: 2,000 units Documented by: [id number] Discontinued Medications Sodium Chloride (Nss) 500 mls @ 999 mls/hr IV .Q31M [facility] Stop: 11/19/21 18:00 Last Infusion: 11/19/21 19:12 Dose: 0 mls/hr Documented by: [id number] Admin: 11/19/21 17:45 Dose: 999 mls/hr Documented by: [id number] Ceftriaxone Sodium (Rocephin) 1,000 mg in 50 mls @ 100 mls/hr IV NOW STA Stop: 11/19/21 17:53 Last Infusion: 11/19/21 19:12 Dose: 0 mls/hr Documented by: [id number] Admin: 11/19/21 18:00 Dose: 100 mls/hr Documented by: [id number] Sodium Chloride (Nss 1000ml) 500 mls @ 999 mls/hr IV .Q31M ONE Stop: 11/19/21 20:05 Last Infusion: 11/19/21 20:24 Dose: 0 mls/hr Documented by: [id number] Admin: 11/19/21 19:53 Dose: 999 mls/hr Documented by: [id number] Sodium Chloride (Nss 1000ml) 1,000 mls @ 80 mls/hr IV .[id number] [facility] Stop: 11/20/21 12:17 Last Infusion: 11/20/21 14:41 Dose: 0 mls/hr Documented by: [id number] Admin: 11/20/21 01:42 Dose: 80 mls/hr Documented by: [id number] Lactulose (Lactulose Syrup 20 Gm/30 Ml Udc) 20 gm PO NOW ONE Stop: 11/20/21 13:01 Last Admin: 11/20/21 14:42 Dose: 20 gm Documented by: [id number] Imaging Data Radiologist's Impression: CT OF THE HEAD WITHOUT CONTRAST CLINICAL HISTORY: Confusion. COMPARISON STUDY: Head CT January 20, 2021. CT DOSE: 2071.62 mGycm TECHNIQUE: Helical axial images of the head were obtained without IV contrast. Automated exposure control was utilized for the study. A dose lowering technique was utilized adhering to the principles of ALARA. FINDINGS: No acute intracranial hemorrhage, midline shift or mass effect is present. A 1 cm hyperdense focus within the left parietal lobe is unchanged from earlier exams. This was shown to represent a cavernoma on previous MRI. The appearance of the brain is unchanged. Ventricular system is stable. Basal cisterns are patent. There are no extra axial collections. A 9 mm right triple scalp nodule is unchanged. There is no calvarial fracture. IMPRESSION: No acute intracranial findings. No change in appearance of the brain. XR chest 1V portable CLINICAL HISTORY: weakness COMPARISON STUDY: Chest radiograph January 20, 2021. FINDINGS: Lung volumes are diminished. There is no pneumothorax or pleural effusion. Cardiomegaly is unchanged. There is pulmonary vascular congestion without overt pulmonary edema. No consolidation is identified. IMPRESSION: Stable cardiomegaly. Pulmonary vascular congestion without overt pulmonary edema. CT OF THE ABDOMEN AND PELVIS WITHOUT CONTRAST CLINICAL HISTORY: Abdominal pain. Confusion. Possible obstruction. COMPARISON STUDY: CT of the abdomen and pelvis January 21, 2021. TECHNIQUE: Axial images of the abdomen and pelvis were obtained without IV contrast. Images were reviewed in the axial, sagittal, and coronal planes. Automated exposure control was utilized for the study. A dose lowering technique was utilized adhering to the principles of ALARA. FINDINGS: No pneumatosis, free air or portal venous gas is present. Evaluation of the abdomen and pelvis is suboptimal on this unenhanced exam. Cardiomegaly is noted. Numerous hepatic lesions favor cysts. These are unchanged. Unenhanced images of the adrenal glands, kidneys and pancreas are unremarkable. There is no biliary or pancreatic ductal dilatation. No hydronephrosis. Suspected cyst within the upper pole of the left kidney is noted. No urinary calculi are present. Postoperative findings within the prostate are noted suggestive of transurethral resection. Borrego balloon within the bladder is noted. Gas within the bladder is related to indwelling catheter. No operative bed fluid collection is identified on this unenhanced examination. There is no evidence for a bowel obstruction. The appendix is normal. Moderate to large amount stool within the colon and rectum is noted. There is no lymphadenopathy. No suspicious lesions are identified within the visualized skeletal structures. IMPRESSION: 1. Moderate to large amount stool within the colon and rectum. No bowel obstruction. 2. No hydronephrosis. No urinary calculi. Borrgeo catheter within the bladder. Gas within the bladder from Borrego catheter. Discharge Plan Visit Data Chief Complaint: GI Assessment ED Provider: Ulises Scanlon Discharge Problem: Weakness, Constipation, Confusion, Dehydration, S/P TURP Patient Disposition: Admitted As Inpatient Condition: Good Discharge Instructions Interventions: ED Discharge Assessment Last Done: 11/19/21 23:08
[2021-11-19] MEDS ORDERED: SODIUM CHLORIDE 0.9% 500 ML IV SCH (17:30)
[2021-11-19 18:13] LABS: Basophils # (auto) 0.03 K/uL (0-0.2); Basophils % (auto) 0.5 %; Eosinophils # (auto) 0.11 K/uL (0-0.5); Eosinophils % (auto) 1.7 %; Hemoglobin 13.2 g/dL (14.0-18.0); Immature Granulocytes # (auto) 0.02 K/uL (0.00-0.02); Immature Granulocytes % (auto) 0.3 %; Lymphocytes # (auto) 1.43 K/uL (1.2-3.4); Lymphocytes % (auto) 21.8 %; Mean Corpuscular Hemoglobin 30.4 pg (25-34); Mean Corpuscular Hgb Conc 34.7 g/dL (32-36); Mean Corpuscular Volume 87.6 fL (80-100); Mean Platelet Volume 9.8 fL (7.4-10.4); Monocytes % (auto) 7.6 %; Neutrophils # (auto) 4.48 K/uL (1.4-6.5); Neutrophils % (auto) 68.1 %; Platelet Count 262 K/uL (130-400); RDW Coefficient of Variation 12.4 % (11.5-14.5); RDW Standard Deviation 40.5 fL (36.4-46.3); Red Blood Count 4.34 M/uL (4.7-6.1); White Blood Count 6.57 K/uL (4.8-10.8)
--- NOTE | 2021-11-19 18:20 | XRay Report ---
XR chest 1V portable CLINICAL HISTORY: weakness COMPARISON STUDY: Chest radiograph January 20, 2021. FINDINGS: Lung volumes are diminished. There is no pneumothorax or pleural effusion. Cardiomegaly is unchanged. There is pulmonary vascular congestion without overt pulmonary edema. No consolidation is identified. IMPRESSION: Stable cardiomegaly. Pulmonary vascular congestion without overt pulmonary edema. ACT 112: Negative or not required by law. Electronically signed by: Johnathan Spring M.D. 11/19/2021 6:19 PM
[2021-11-19 18:31] LABS: Partial Thromboplastin Ratio 1.2; Partial Thromboplastin Time 31.2 Seconds (21.0-31.0); Prothrombin Time 10.2 Seconds (9.0-12.0)
[2021-11-19 18:57] LABS: Troponin I < 0.03 ng/ml (0-0.04)
[2021-11-19 19:12] LABS: Alanine Aminotransferase 14 U/L (7-52); Albumin Globulin Ratio 1.3 (0.9-2); Alkaline Phosphatase 75 U/L (34-104); Anion Gap 10 (3-11); Aspartate Aminotransferase 6 U/L (13-39); BUN Creatinine Ratio 16.4 (10-20); Bilirubin,Total 0.3 mg/dl (0.2-1.0); Blood Urea Nitrogen 18 mg/dl (6-23); Calcium 9.4 mg/dl (8.5-10.1); Carbon Dioxide 21 mmol/L (21-32); Chloride 102 mmol/L (98-107); Est GFR (African American) 77.9 ml/min; Est GFR (Non-African American) 67.2 ml/min; Glucose 93 mg/dl (70-99(Fasting)); Potassium 4.6 mmol/L (3.5-5.1); Sodium 133 mmol/L (136-145)
[2021-11-19 19:14] LABS: Appearance Urine Clear (Clear); Bacteria Urine Automated Negative (Negative); Bilirubin Urine Negative (Negative); Blood Urine Trace (Negative); Cast Urine Automated 0 /lpf (0-5); Color Urine Yellow; Epithelial Cell Urine Auto 0-5 /lpf (0-5); Glucose Urine UA Negative (Negative); Ketones Urine Negative (Negative); Leukocyte Esterase Urine Negative (Negative); Nitrite Urine Negative (Negative); Protein Urine Negative (Negative); RBC Urine Automated 0-4 /hpf (0-4); Specific Gravity Urine 1.007 (1.000-1.030); Urobilinogen Urine Negative (Negative); WBC Urine Automated 0 /hpf (0-5)
--- NOTE | 2021-11-19 19:16 | CT Scan Report ---
CT OF THE HEAD WITHOUT CONTRAST CLINICAL HISTORY: Confusion. COMPARISON STUDY: Head CT January 20, 2021. CT DOSE: 2071.62 mGycm TECHNIQUE: Helical axial images of the head were obtained without IV contrast. Automated exposure con trol was utilized for the study. A dose lowering technique was utilized adhering to the principles o f ALARA. FINDINGS: No acute intracranial hemorrhage, midline shift or mass effect is present. A 1 cm hyperdens e focus within the left parietal lobe is unchanged from earlier exams. This was shown to represent a cavernoma on previous MRI. The appearance of the brain is unchanged. Ventricular system is stable. Ba nicolle cisterns are patent. There are no extra axial collections. A 9 mm right triple scalp nodule is un changed. There is no calvarial fracture. IMPRESSION: No acute intracranial findings. No change in appearance of the brain. ACT 112: Negative or not required by law. Electronically signed by: Johnathan Spring M.D. 11/19/2021 7:15 PM
--- NOTE | 2021-11-19 19:27 | CT Scan Report ---
CT OF THE ABDOMEN AND PELVIS WITHOUT CONTRAST CLINICAL HISTORY: Abdominal pain. Confusion. Possible obstruction. COMPARISON STUDY: CT of the abdomen and pelvis January 21, 2021. TECHNIQUE: Axial images of the abdomen and pelvis were obtained without IV contrast. Images were revi ewed in the axial, sagittal, and coronal planes. Automated exposure control was utilized for the mary kate dy. A dose lowering technique was utilized adhering to the principles of ALARA. FINDINGS: No pneumatosis, free air or portal venous gas is present. Evaluation of the abdomen and pel vis is suboptimal on this unenhanced exam. Cardiomegaly is noted. Numerous hepatic lesions favor cyst s. These are unchanged. Unenhanced images of the adrenal glands, kidneys and pancreas are unremarkabl e. There is no biliary or pancreatic ductal dilatation. No hydronephrosis. Suspected cyst within the upper pole of the left kidney is noted. No urinary calculi are present. Postoperative findings within the prostate are noted suggestive of transurethral resection. Borrego balloon within the bladder is no carol. Gas within the bladder is related to indwelling catheter. No operative bed fluid collection is i dentified on this unenhanced examination. There is no evidence for a bowel obstruction. The appendix is normal. Moderate to large amount stool within the colon and rectum is noted. There is no lymphaden opathy. No suspicious lesions are identified within the visualized skeletal structures. IMPRESSION: 1. Moderate to large amount stool within the colon and rectum. No bowel obstruction. 2. No hydronephrosis. No urinary calculi. Borrego catheter within the bladder. Gas within the bladder f rom Borrego catheter. ACT 112: Negative or not required by law. Electronically signed by: Johnathan Spring M.D. 11/19/2021 7:26 PM
[2021-11-19] MEDS ORDERED: SODIUM CHLORIDE 0.9% 1000ML 500 ML IV ONE (19:35)
[2021-11-19] MEDS ORDERED: ACETAMINOPHEN 325 MG TAB PO PRN ×2 (21:48→23:48)
--- NOTE | 2021-11-19 21:50 | History & Physical Report ---
Date of Service November 19, 2021 Assessment & Plan (1) Weakness: Plan: This is a 70-year-old male with a notable history of dementia, paroxysmal atrial fibrillation on Eliquis, Parkinson's disease on Sinemet, type 2 diabetes, BPH s/p TURP 1 week ago, nephrolithiasis who presented to for evaluation of constipation and fatigue, approx 7 days following TURP procedure. Weakness / Fatigue / Deconditioning / Increased Somnolence In the setting of dementia, recent TURP with use of oxybutynin for spasms, known Parkinson's disease; according to , his somnolence is notably different compared to his baseline. Labs, urine, imaging studies were not significant for any infectious processes, hyperammonemia (?nursing staff at home were concerned, but no h/o liver disease per ), anemia, lyte disturbances, cardiac stress; TSH/BSGs wnl Only new recent medications are Keflex/methenamine/oxybutynin since TURPoxybutynin known to have drowsiness side effect, which very well may be contributing; will hold CT of the abdomen and pelvis does reveal a moderate to large stool burden CT head not demonstrating any acute anomalies Etiology unclear overall. Dementia history noted. Possibly polypharmacy? Const ipation likely playing a role too. Prefer to rule out urinary infection with culture given indwelling cath though UA appeared normal Continue CFTX started in the ER for now Await urine cultures, blood cultures -- patient does NOT meet criteria for SIRS/sepsis at present Continue gentle maintenance IV fluids, replace lytes as needed PT, OT: Appreciate needs assessment for this individual who is recently postop, with known history of Parkinson's disease (2) Constipation: Plan: Patient reportedly has multiday history of constipation; endorses still passing gas. His abdominal exam demonstrates mild distention, but no tenderness to palpation No evidence of small bowel obstruction on CT. CT did reveal moderate to large stool burden We will continue patient's lactulose and docusate while he is here Begin MiraLAX twice daily, senna daily Consider addition of mineral oil, enemas as needed (3) Diabetes: Plan: Last A1c reported in our system is at 6.6% 01/2021 Hold home medicationsmetformin and glipizide Order repeat A1c Initiate sliding scale insulin w/ ACHS checks, goal range 100-140, start CC at 35 -- reduce/increase p.r.n. (4) BPH w urinary obs/LUTS: Plan: Recently status post TURP by Dr. Zhou on 11/12/2021 Patient still taking Keflex and methenamine, his notes that he has approximately 2 days leftwe will hold these with ceftriaxone ongoing Continue tamsulosin as needed -- denies use of Pyridium at home Hold oxybutynin, may be contributing to increased drowsiness --patient was taking for bladder spasms status post TURP Maintain Borrego, monitor UOP (5) Paroxysmal atrial fibrillation: Plan: Rate controlled. Continue Eliquis. Continue dofetilide, propranolol (6) Cavernous angioma: Plan: Patient reportedly takes Keppra daily (over the last many years) for some sort of cerebrovascular anomaly; patient's was unsure what/why (?cavernous malformation) No reported history of seizures Continue Keppra while here (7) Parkinson disease: Plan: Continue Sinemet, entacapone, bromocriptine (8) Bilateral kidney stones: Plan: History noted. CT abdomen pelvis was unrevealing for any urinary calculi on admission (9) Dementia: Plan: Noted in setting of the above. Continue donepezil. Plan: Code: DNR/DNI -- spoke w/ patient at length at the bedside, while he was alert/oriented, confirmed he understood what this meant; he says he has NOT spoken with about this. Last few visits indicate FULL CODE but does have previous visit marked DNR/DNI as well. was not at the bedside and had left by time of my arrival. Dispo: MS Diet: CC PPX: Eliquis for AF History of Present Illness Primary Care Provider: Kostas Hannah This is a 70-year-old male with a notable history of dementia, paroxysmal atrial fibrillation on Eliquis, Parkinson's disease on Sinemet, type 2 diabetes, BPH s/p TURP 1 week ago, nephrolithiasis who presented to for evaluation of constipation and fatigue. Patient recently had transurethral resection of the prostate alongside bladder neck incision performed approximately 1 week ago. Since that time, he is seems progressively more fatigued and somnolent. His tells me that this is very unlike him. She says that the only new medications he has been utilizing are the antibiotics (Keflex/methenamine) and oxybutynin for bladder spasms. They have not used any other pain medications throughout all this. She denies any recent fevers, chills, sweats. P.o. intake has not been the greatest lately. No trouble swallowing. He endorses passing gas, but last movement was "several days ago." The Borrego catheter has been in since the time of his TURP; it has been draining appropriately. Upon arrival in the emergency room, patient was found to have normal vital signs. Labs were significant for a chronic anemia, improved compared to prior, mild hyponatremia to 133, normal TSH, urinalysis with trace hematuria. Ammonia level negative. Covid testing negative. CT of the abdomen and pelvis demonstrated moderate to large amount of stool burden; no noted hydronephrosis, urinary calculi. Chest x-ray revealing persistent cardiomegaly with pulmonary vascular congestion, no pulmonary edema. Head CT was negative for any acute findings. Blood cultures were obtained. Patient was given intravenous fluids as well as ceftriaxone X1. Allergies Allergy/AdvReac Type Severity Reaction Status Date / Time ciprofloxacin [From Cipro] Allergy Unknown Unknown Verified 11/19/21 19:12 Home Medications Medication Instructions Recorded Confirmed Type carbidopa 25 mg-levodopa 100 mg 1 tab PO QID 04/12/19 11/19/21 History tablet (Sinemet) cranberry 500 mg capsule 500 mg PO QAM 04/12/19 11/19/21 History levetiracetam 500 mg tablet 500 mg PO BID 04/12/19 11/19/21 History (Keppra) metformin 1,000 mg tablet 1,000 mg PO BID 04/12/19 11/19/21 History cholecalciferol (vitamin D3) 50 2,000 unit PO QAM 08/30/19 11/19/21 History mcg (2,000 unit) tablet (Vitamin D3) apixaban 5 mg tablet (Eliquis) 5 mg PO BID 10/28/20 11/19/21 History ascorbic acid (vitamin C) 500 mg 500 mg PO BID 10/28/20 11/19/21 History tablet (Vitamin C) cyanocobalamin (vitamin B-12) 1,000 mcg PO QAM 10/28/20 11/19/21 History 1,000 mcg tablet glipizide 2.5 mg tablet, extended 2.5 mg PO QAM 10/28/20 11/19/21 History release 24 hr methenamine hippurate 1 gram tablet 1 g PO BID 10/28/20 11/19/21 History pantoprazole 40 mg tablet,delayed 40 mg PO QAM 10/28/20 11/19/21 History release dofetilide 250 mcg capsule 250 mcg PO BID 12/28/20 11/19/21 History acetaminophen 325 mg tablet 650 mg PO Q6H PRN 01/20/21 11/19/21 History (Tylenol) docusate sodium 100 mg capsule 100 mg PO BID 01/20/21 11/19/21 History (Colace) donepezil 5 mg tablet 5 mg PO HS 01/20/21 11/19/21 History lactulose 10 gram/15 mL oral 20 g PO 3XWK 01/20/21 11/19/21 History solution magnesium oxide 400 mg (241.3 mg 400 mg PO QAM 01/20/21 11/19/21 History magnesium) tablet propranolol 20 mg tablet 10 mg PO QAM 01/20/21 11/19/21 History bromocriptine 2.5 mg tablet 1.25 mg PO BID 07/02/21 11/19/21 History entacapone 200 mg tablet (Comtan) 200 mg PO QID 11/08/21 11/19/21 History oxybutynin chloride 5 mg tablet 5 mg PO Q8H PRN #20 tab 11/12/21 11/19/21 Rx phenazopyridine 200 mg tablet 200 mg PO Q8H PRN #10 tab 11/12/21 11/19/21 Rx (Pyridium) tamsulosin 0.4 mg capsule 0.4 mg PO HS #30 cap 11/12/21 11/19/21 Rx Past Med/Surg History Medical History BPH w urinary obs/LUTS Cavernous angioma "left parietal lobe...consistent with a cavernous angioma which has previo usly bled...stable" per MRI brain 09/26/2021 report Diabetes NIDDM History of COVID-19 08/2020, asymptomatic HTN (hypertension) Hx of seizure disorder Per records hx seizure- patient on Keppra No known hx of seizures per Kidney stones hx Parkinson disease Paroxysmal atrial fibrillation on Eliquis, follows with Dr. Sanz/[facility] Surgical History H/O transurethral resection of prostate 11/20/2020: LMA#5, atraumatic x 1. No issues per anesthesia postop progress note. 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 He is alert and oriented t hroughout her discussion though is notably somnolent. No acute distress HEENT: No JVD. Trachea midline. NCAT. Cardiac: normal rate, regular rhythm, S1 and S2 are present without murmurs rubs or gallops Respiratory: Normal respiratory effort with symmetric sponge distress. Lungs are clear to auscultation bilaterally without crackles or wheezes Abdomen: Abdomen is very mildly distended, nontender to palpation throughout. No suprapubic tenderness. Borrego in place. Extremities: No significant edema in the lower extremities bilaterally Neurologic: Strength testing of the upper and lower extremities reveals 4 out of 5 strength without focal neurologic deficits. Results & Data Results & Data ([facility]) Vital Signs (Past 12 Hours) Vital Signs Temp Pulse Resp BP Pulse Ox 11/19/21 20:00 112 H 145/86 H 11/19/21 19:00 66 14 127/68 95 11/19/21 18:00 65 18 96 11/19/21 17:26 66 22 97 02/07/22 17:05 36.9 C 67 20 134/75 95 Resident Activity Tracking Resident Involvement: Resident Care Provided Care Provided: Adult Hospital Medicine (1) Diabetes Diabetes mellitus complication status: without complication Diabetes mellitus long chain beamer insulin use: without long-term use Diabetes mellitus type: type 2 Qualified Code(s): E11.9 - Type 2 diabetes mellitus without complications
[2021-11-19] MEDS ORDERED: DEXTROSE 50% 50 ML SYRINGE IV PRN (23:48)
[2021-11-19] MEDS ORDERED: CARBOHYDRATES FOR HYPOGLYCEMIA PO PRN (23:48)
[2021-11-19] MEDS ORDERED: OXYBUTYNIN CHLORIDE 5 MG TAB PO PRN (23:48)
[2021-11-19] MEDS ORDERED: GLUCAGON FOR INJ 1 MG VIAL SQ PRN (23:48)
[2021-11-19] MEDS ORDERED: GLUCOSE 10 TABS/TUBE PO PRN (23:48)
[2021-11-19] MEDS ORDERED: SODIUM CHLORIDE 0.9% 1000ML 1,000 ML IV SCH (23:48)
[2021-11-19] MEDS ORDERED: GLUCOSE 40% GEL 15 GM TUBE PO PRN (23:48)
[2021-11-20] MEDS ORDERED: Nursing to Pharmacy Communication SCH (01:30)
[2021-11-20] MEDS: ENTACAPONE 200 MG TAB PO SCH ×5 (01:39→21:42)
[2021-11-20] MEDS: CARBIDOPA/LEVODOPA 25/100MG TAB PO SCH ×5 (01:39→21:42)
[2021-11-20] MEDS: SENNA 8.6 MG TAB PO SCH ×2 (01:40→08:47)
[2021-11-20] MEDS ORDERED: INSULIN ASPART PER UNIT SC SCH (06:00)
[2021-11-20 07:27] LABS: Basophils # (auto) 0.01 K/uL (0-0.2); Basophils % (auto) 0.2 %; Eosinophils # (auto) 0.11 K/uL (0-0.5); Eosinophils % (auto) 1.8 %; Hematocrit (blood only) 38.5 % (42-52); Hemoglobin 13.4 g/dL (14.0-18.0); Immature Granulocytes # (auto) 0.02 K/uL (0.00-0.02); Immature Granulocytes % (auto) 0.3 %; Lymphocytes # (auto) 1.65 K/uL (1.2-3.4); Lymphocytes % (auto) 27.7 %; Mean Corpuscular Hemoglobin 30.5 pg (25-34); Mean Corpuscular Hgb Conc 34.8 g/dL (32-36); Mean Corpuscular Volume 87.7 fL (80-100); Mean Platelet Volume 9.9 fL (7.4-10.4); Monocytes # (auto) 0.69 K/uL (0.11-0.59); Monocytes % (auto) 11.6 %; Neutrophils # (auto) 3.48 K/uL (1.4-6.5); Neutrophils % (auto) 58.4 %; Platelet Count 246 K/uL (130-400); RDW Coefficient of Variation 12.6 % (11.5-14.5); RDW Standard Deviation 40.5 fL (36.4-46.3); Red Blood Count 4.39 M/uL (4.7-6.1); White Blood Count 5.96 K/uL (4.8-10.8)
[2021-11-20 07:53] LABS: BUN Creatinine Ratio 16.7 (10-20); Calcium 9.2 mg/dl (8.5-10.1); Creatinine Clr Calc Pharmacy 68.9 ml/min; Est GFR (African American) 79.6 ml/min; Est GFR (Non-African American) 68.7 ml/min; Potassium 4.1 mmol/L (3.5-5.1)
[2021-11-20 08:11] LABS: Estimated Average Glucose 160 mg/dl; Hemoglobin A1C 7.2 % (4.5-5.6)
[2021-11-20] MEDS: INSULIN ASPART PER UNIT SC SCH ×4 (08:37→21:40)
[2021-11-20] MEDS: MAGNESIUM OXIDE 400 MG TAB PO SCH (08:38)
[2021-11-20] MEDS: ASCORBIC ACID 500 MG TAB PO SCH ×2 (08:38→21:42)
[2021-11-20] MEDS: DOFETILIDE 125 MCG CAPSULE PO SCH ×2 (08:38→21:42)
[2021-11-20] MEDS: BROMOCRIPTINE MESYLATE 2.5 MG TAB PO SCH ×2 (08:39→21:42)
[2021-11-20] MEDS: CHOLECALCIFEROL 1,000 UNITS 25 MCG TAB PO SCH (08:39)
[2021-11-20] MEDS: levETIRAcetam 500 MG TAB PO SCH ×2 (08:39→21:42)
[2021-11-20] MEDS: CYANOCOBALAMIN (B-12) 500 MCG TABLET PO SCH (08:39)
[2021-11-20] MEDS: APIXABAN 5 MG TABLET PO SCH ×2 (08:39→21:42)
[2021-11-20] MEDS: PANTOprazole 40 MG TAB PO SCH (08:39)
[2021-11-20] MEDS: PROPRANOLOL HCL 10 MG TAB PO SCH (08:39)
[2021-11-20] MEDS: DOCUSATE SODIUM 100 MG CAP PO SCH ×2 (08:40→22:26)
[2021-11-20] MEDS: POLYETHYLENE (MIRALAX) 17 GM PACK PO SCH ×2 (08:50→22:41)
[2021-11-20] MEDS ORDERED: NON-FORMULARY MEDICATION (Cranberry 500 mg Capsule) PO SCH (09:00)
--- NOTE | 2021-11-20 12:44 | Hospitalist Progress Note ---
Date of Service November 20, 2021 Assessment & Plan (1) Debility: Plan: Patient seems to be an appropriate historian although I have attempted to reach out to the multiple times (without success) to confirm. He presented to the ED with what is documented to be altered mental status but in reading between the lines, he seemed to have hypersomnolence/excessive fatigue. Patient reports that he lives at home with his and was in his usual state of health until 1 week ago when he had a TURP. This was done as a same-day procedure on 11/12 without complications. Borrego catheter has been indwelling since. Discharged on empiric antibiotic therapy (Keflex and methenamine). Was reported to have increased sleepiness/hypersomnolence which prompted his evalu ation into the emergency department. Work-up yielded no acute pathology: * Ammonia level normal: 32 * Normal white blood cell count * Patient afebrile * Urinalysis not grossly infected * CXR shows no acute cardiopulmonary process * CT of the abdomen and pelvis shows constipation but no other acute intra- abdominal process * CT of the head shows no intracranial process * add Keppra level (but unlikely toxic at current dose and no other S/S) * Patient mentating appropriately today. Answers all questions appropriate. Oriented X4 Suspect this is just general decline/debility in a 70-year-old who carries a diagnosis of dementia and Parkinson's. He recently underwent a surgical procedure (TURP) and now has an indwelling Borrego catheter. This likely has caused general decline. He does not have to get up to go to the bathroom thus his mobility has decreased over the past week. In addition, he has not had a bowel movement which is hindering his mobility. At any rate, PT/OT has been consulted. Appreciate recommendations I have attempted to contact the to help determine if patient is a reliable historian. He seems to be answering all questions appropriately but would like to touch base with (2) Constipation: Plan: * Per nursing staff, reported no BM since 11/17 * CT of the abdomen and pelvis does show moderate stool burden * Currently on Colace and routine MiraLAX along with lactulose (which she gets Mondays, Wednesdays, Fridays). * Can given additional dose Lactulose and consider changing to daily if needed (3) BPH w urinary obs/LUTS: Plan: * TURP done 11/[address] 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 Guzmán. Further orders as warranted. Admission and Anticipated Discharge Date Admission Date: November 19, 2021 Subjective Patient seen on daily rounds today. Vocalizes no complaints or concerns. Denies fevers, chills, chest pain, shortness of breath, abdominal pain, nausea or vomiting. Nursing voices no complaints or concerns. Review of Systems Review of Systems: All systems reviewed and are unremarkable except as noted in HPI and below Denies fevers, chills, headache, nasal congestion, sore throat, cough, chest pain, shortness of breath, palpitations, orthopnea, PND, abdominal pain, nausea, vomiting, diarrhea, constipation, dysuria, hematuria, frequency, back pain, joint pain or swelling, easy bruising or bleeding, skin lesions or rashes. Physical Exam Physical Exam: General: Resting comfortably in his hospital bed. He does not appear ill or toxic. NAD. HEENT: Head is AT/NC buccal mucosa is moist and pink Neck: No JVD. Negative hepatojugular reflex Cardiac: currently in a NSR with CVR without M/G/R Lungs: CTA without W/R/R Abdomen: Normoactive X4. Soft and nontender in all quadrants. Extremities: No peripheral clubbing cyanosis or edema Neuro: Awake and alert. Oriented to person/self, place, time and situation. Cranial nerves II through XII are grossly intact no focal neuro deficits Skin: No obvious skin lesions or rashes Psych: Appropriate affect pleasant and cooperative Results & Data Results & Data ([facility]) Vital Signs (Past 12 Hours) Vital Signs Temp Pulse Resp BP Pulse Ox 11/20/21 11:11 36.6 C 58 L 17 125/73 94 11/20/21 07:29 36.6 C 50 L 16 119/72 97 Laboratory Results 11/20/21 06:55 11/20/21 06:55 PG Care Time/CCT Total # of Minutes Spent Total Time Spent with Patient: Total time spent is greater than 50% in coordination of care (as documented) at patient's floor/unit and/or counseling patient: Coding Level of Care Code 61915 Subseq Hosp Care Lvl 2 Diagnoses Debility R53.81 BPH w urinary obs/LUTS N40.1; N13.8 Paroxysmal atrial fibrillation I48.0 Cavernous angioma D18.00 Constipation K59.00 Parkinson disease G20
[2021-11-20] MEDS ORDERED: LACTULOSE SYRUP 20 GM/30 ML UDC PO ONE (13:00)
[2021-11-20] MEDS ORDERED: cefTRIAXone SODIUM 2,000 MG in DEXTROSE 5% 50 ML IV SCH (18:00)
[2021-11-20] MEDS ORDERED: DONEPEZIL HCL 5 MG TAB PO SCH (21:00)
[2021-11-20] MEDS ORDERED: TAMSULOSIN HCL 0.4 MG CAP PO SCH (21:00)
--- NOTE | 2021-11-20 22:37 | Electrocardiogram Report ---
Test Reason : Blood Pressure : / mmHG Vent. Rate : 064 BPM Atrial Rate : 064 BPM P-R Int : 164 ms QRS Dur : 090 ms QT Int : 412 ms P-R-T Axes : 051 -33 018 degrees QTc Int : 425 ms Sinus rhythm with Premature supraventricular complexes Left axis deviation Moderate voltage criteria for LVH, may be normal variant Poor R wave progression, consider anterior [place] vs. lead placement vs. LVH Abnormal ECG When compared with ECG of 20-JAN-2021 17:08, Premature supraventricular complexes are now Present Confirmed by Saw Luke ([id number]) on 11/20/2021 10:36:32 PM Referred By: REFERRED SELF Confirmed By:Saw Luke
[2021-11-21] MEDS ORDERED: LACTULOSE SYRUP 20 GM/30 ML UDC PO SCH (09:00)
[2021-11-21] MEDS: DOCUSATE SODIUM 100 MG CAP PO SCH (09:14)
[2021-11-21] MEDS: INSULIN ASPART PER UNIT SC SCH ×3 (09:14→16:31)
[2021-11-21] MEDS: PANTOprazole 40 MG TAB PO SCH (09:14)
[2021-11-21] MEDS: ENTACAPONE 200 MG TAB PO SCH ×3 (09:15→16:08)
[2021-11-21] MEDS: CYANOCOBALAMIN (B-12) 500 MCG TABLET PO SCH (09:15)
[2021-11-21] MEDS: DOFETILIDE 125 MCG CAPSULE PO SCH (09:15)
[2021-11-21] MEDS: PROPRANOLOL HCL 10 MG TAB PO SCH (09:15)
[2021-11-21] MEDS: SENNA 8.6 MG TAB PO SCH (09:15)
[2021-11-21] MEDS: BROMOCRIPTINE MESYLATE 2.5 MG TAB PO SCH (09:15)
[2021-11-21] MEDS: levETIRAcetam 500 MG TAB PO SCH (09:15)
[2021-11-21] MEDS: CHOLECALCIFEROL 1,000 UNITS 25 MCG TAB PO SCH (09:15)
[2021-11-21] MEDS: CARBIDOPA/LEVODOPA 25/100MG TAB PO SCH ×3 (09:16→16:08)
[2021-11-21] MEDS: APIXABAN 5 MG TABLET PO SCH (09:16)
[2021-11-21] MEDS: ASCORBIC ACID 500 MG TAB PO SCH (09:16)
[2021-11-21] MEDS: POLYETHYLENE (MIRALAX) 17 GM PACK PO SCH (09:16)
[2021-11-21] MEDS: MAGNESIUM OXIDE 400 MG TAB PO SCH (09:20)
--- NOTE | 2021-11-21 09:28 | Hospitalist Progress Note ---
Date of Service November 21, 2021 Assessment & Plan Admission and Anticipated Discharge Date Admission Date: November 19, 2021 Subjective patient evaluated this afternoon doing alright eating/drinking no issue no pain reported/need for medications plans for [facility] at discharge unless 24 hour care at home. he feels he would be ready to start rehab today -- will convene with CM and check availability. He would like updated prior to moving to rehab. No fever, chill, chest pain, shortness of breath, nausea, vomiting or dysuria at this time. Borrego remains in place, draining yellow urine. Results & Data Results & Data ([facility]) Vital Signs (Past 12 Hours) Vital Signs Temp Pulse Pulse Resp BP BP Pulse Ox 11/21/21 07:43 36.4 C L 56 L 18 112/69 96 11/20/21 22:15 36.6 C 62 17 155/82 H 97 Laboratory Results 11/21/21 11/20/21 11/20/21 Range/Units 08:01 20:36 17:10 POC Glucose 146 H 180 H 207 H (70-99) mg/dl Levetiracetam 11/20/21 11/20/21 Range/Units 13:05 11:44 POC Glucose 224 H (70-99) mg/dl Levetiracetam Pending PG Care Time/CCT Total # of Minutes Spent Total Time Spent with Patient: Total time spent is greater than 50% in coordination of care (as documented) at patient's floor/unit and/or counseling patient: Coding
[2021-11-21 09:43] LABS: Hematocrit (blood only) 39.4 % (42-52); Hemoglobin 13.5 g/dL (14.0-18.0); Mean Corpuscular Hemoglobin 30.2 pg (25-34); Mean Corpuscular Hgb Conc 34.3 g/dL (32-36); Mean Corpuscular Volume 88.1 fL (80-100); Mean Platelet Volume 9.7 fL (7.4-10.4); Platelet Count 257 K/uL (130-400); RDW Coefficient of Variation 12.6 % (11.5-14.5); RDW Standard Deviation 40.4 fL (36.4-46.3); Red Blood Count 4.47 M/uL (4.7-6.1); White Blood Count 5.08 K/uL (4.8-10.8)
[2021-11-21 10:05] LABS: BUN Creatinine Ratio 12.8 (10-20); Creatinine Clr Calc Pharmacy 55.9 ml/min; Est GFR (African American) 61.9 ml/min; Est GFR (Non-African American) 53.4 ml/min; Potassium 4.3 mmol/L (3.5-5.1)
--- NOTE | 2021-11-21 14:41 | Discharge Summary ---
Date of Service November 21, 2021 Admission HPI Per Admitting Provider This is a 70-year-old male with a notable history of dementia, paroxysmal atrial fibrillation on Eliquis, Parkinson's disease on Sinemet, type 2 diabetes, BPH s/p TURP 1 week ago, nephrolithiasis who presented to [facility] for evaluation of constipation and fatigue. Patient recently had transurethral resection of the prostate alongside bladder neck incision performed approximately 1 week ago. Since that time, he is seems progressively more fatigued and somnolent. His tells me that this is very unlike him. She says that the only new medications he has been utilizing are the antibiotics (Keflex/methenamine) and oxybutynin for bladder spasms. They have not used any other pain medications throughout all this. She denies any recent fevers, chills, sweats. P.o. intake has not been the greatest lately. No trouble swallowing. He endorses passing gas, but last movement was "several days ago." The Mascorro catheter has been in since the time of his TURP; it has been draining appropriately. Upon arrival in the emergency room, patient was found to have normal vital signs. Labs were significant for a chronic anemia, improved compared to prior, mild hyponatremia to 133, normal TSH, urinalysis with trace hematuria. Ammonia level negative. Covid testing negative. CT of the abdomen and pelvis demonstrated moderate to large amount of stool burden; no noted hydronephrosis, urinary calculi. Chest x-ray revealing persistent cardiomegaly with pulmonary vascular congestion, no pulmonary edema. Head CT was negative for any acute findings. Blood cultures were obtained. Patient was given intravenous fluids as well as ceftriaxone X1. Admission Exam Per Admitting Provider General: Tired appearing 70-year-old gentleman who is lying back in his hospital bed, relaxed upon my arrival. He is alert and oriented throughout her discussion though is notably somnolent. No acute distress HEENT: No JVD. Trachea midline. NCAT. Cardiac: normal rate, regular rhythm, S1 and S2 are present without murmurs rubs or gallops Respiratory: Normal respiratory effort with symmetric sponge distress. Lungs are clear to auscultation bilaterally without crackles or wheezes Abdomen: Abdomen is very mildly distended, nontender to palpation throughout. No suprapubic tenderness. Mascorro in place. Extremities: No significant edema in the lower extremities bilaterally Neurologic: Strength testing of the upper and lower extremities reveals 4 out of 5 strength without focal neurologic deficits. Principal Diagnosis Weakness, Constipation, Deconditioning Discharge Exam General: Resting comfortably in his hospital bed, sleeping upon arrival. WN/WD, flat affect, in no acute distress HEENT: Head is AT/NC buccal mucosa is moist and pink Neck: No JVD. Negative hepatojugular reflex Cardiac: RRR, no m/r/g, no edema Lungs: CTAB, no w/c/r, on room air, no cough, no tachypneia Abdomen: Normoactive X4. Soft and nontender in all quadrants. : mascorro with yellow urine draining Extremities: No peripheral clubbing cyanosis or edema Neuro: Awake and alert. Oriented to person/self, place, time and situation. Cranial nerves II through XII are grossly intact no focal neuro deficits Skin: No obvious skin lesions or rashes Psych: AOx3, flat affect, cooperative Discharge Data Allergies Allergy/AdvReac Type Severity Reaction Status Date / Time ciprofloxacin [From Cipro] Allergy Unknown Unknown Verified 11/19/21 19:12 Consultations 11/19/21 21:24 ED Decision to Admit Stat Ordered Studies Abdomen/Pelvis CT 11/19/21 17:24 CT OF THE ABDOMEN AND PELVIS WITHOUT CONTRAST CLINICAL HISTORY: Abdominal pain. Confusion. Possible obstruction. COMPARISON STUDY: CT of the abdomen and pelvis January 21, 2021. TECHNIQUE: Axial images of the abdomen and pelvis were obtained without IV contrast. Images were reviewed in the axial, sagittal, and coronal planes. Automated exposure control was utilized for the study. A dose lowering technique was utilized adhering to the principles of ALARA. FINDINGS: No pneumatosis, free air or portal venous gas is present. Evaluation of the abdomen and pelvis is suboptimal on this unenhanced exam. Cardiomegaly is noted. Numerous hepatic lesions favor cysts. These are unchanged. Unenhanced images of the adrenal glands, kidneys and pancreas are unremarkable. There is no biliary or pancreatic ductal dilatation. No hydronephrosis. Suspected cyst within the upper pole of the left kidney is noted. No urinary calculi are present. Postoperative findings within the prostate are noted suggestive of transurethral resection. Mascorro balloon within the bladder is noted. Gas within the bladder is related to indwelling catheter. No operative bed fluid collection is identified on this unenhanced examination. There is no evidence for a bowel obstruction. The appendix is normal. Moderate to large amount stool within the colon and rectum is noted. There is no lymphadenopathy. No suspicious lesions are identified within the visualized skeletal structures. IMPRESSION: 1. Moderate to large amount stool within the colon and rectum. No bowel obstruction. 2. No hydronephrosis. No urinary calculi. Mascorro catheter within the bladder. Gas within the bladder from Mascorro catheter. ACT 112: Negative or not required by law. Electronically signed by: Johnathan Spring M.D. 11/19/2021 7:26 PM Chest X-Ray 11/19/21 17:24 XR chest 1V portable CLINICAL HISTORY: weakness COMPARISON STUDY: Chest radiograph January 20, 2021. FINDINGS: Lung volumes are diminished. There is no pneumothorax or pleural effusion. Cardiomegaly is unchanged. There is pulmonary vascular congestion without overt pulmonary edema. No consolidation is identified. IMPRESSION: Stable cardiomegaly. Pulmonary vascular congestion without overt pulmonary edema. ACT 112: Negative or not required by law. Electronically signed by: Johnathan Spring M.D. 11/19/2021 6:[address] 11/19/21 17:24 CT OF THE HEAD WITHOUT CONTRAST CLINICAL HISTORY: Confusion. COMPARISON STUDY: Head CT January 20, 2021. CT DOSE: 2071.62 mGycm TECHNIQUE: Helical axial images of the head were obtained without IV contrast. Automated exposure control was utilized for the study. A dose lowering technique was utilized adhering to the principles of ALARA. FINDINGS: No acute intracranial hemorrhage, midline shift or mass effect is present. A 1 cm hyperdense focus within the left parietal lobe is unchanged from earlier exams. This was shown to represent a cavernoma on previous MRI. The ap pearance of the brain is unchanged. Ventricular system is stable. Basal cisterns are patent. There are no extra axial collections. A 9 mm right triple scalp nodule is unchanged. There is no calvarial fracture. IMPRESSION: No acute intracranial findings. No change in appearance of the brain. ACT 112: Negative or not required by law. Electronically signed by: Johnathan Spring M.D. 11/19/2021 7:15 PM Hospital Course (1) Debility: Patient seems to be an appropriate historian although I have attempted to reach out to the multiple times (without success) to confirm. He presented to the ED with what is documented to be altered mental status but in reading between the lines, he seemed to have hypersomnolence/excessive fatigue. Patient reports that he lives at home with his and was in his usual state of health until 1 week ago when he had a TURP. This was done as a same-day procedure on 11/12 without complications. Mascorro catheter has been indwelling since. Discharged on empiric antibiotic therapy (Keflex and methenamine). Was reported to have increased sleepiness/hypersomnolence which prompted his evaluation into the emergency department. Work-up yielded no acute pathology: * Ammonia level normal: 32 * Normal white blood cell count * Patient afebrile * Urinalysis not grossly infected * CXR shows no acute cardiopulmonary process * CT of the abdomen and pelvis shows constipation but no other acute intra- abdominal process * CT of the head shows no intracranial process * add Keppra level (but unlikely toxic at current dose and no other S/S) * Patient mentating appropriately today. Answers all questions appropriate. Oriented X4 Suspect this is just general decline/debility in a 70-year-old who carries a diagnosis of dementia and Parkinson's. He recently underwent a surgical procedure (TURP) and now has an indwelling Mascorro catheter. This likely has caused general decline. He does not have to get up to go to the bathroom thus his mobility has decreased over the past week. In addition, he has not had a bowel movement which is hindering his mobility. --> +BM, feeling better. To continue bowel regimen at discharge PT/OT consulted -- return home w 24 hour care vs inpatient rehab. CM arranged for rehab at [facility]. To have follow up with Urology in 1-2 weeks to discuss removing mascorro catheter/next steps (2) Constipation: * Per nursing staff, reported no BM since 11/17 * CT of the abdomen and pelvis did show moderate stool burden * Currently on Colace and routine MiraLAX along with lactulose (which she gets Mondays, Wednesdays, Fridays). * Given extra dose lactulose, +BM reported * Active bowel sounds, encouraged ambulation/more frequent ambulation and bowel regimen at discharge * Ammonia wnl (3) BPH w urinary obs/LUTS: * TURP done 11/[address] Zhou * Indwelling Mascorro catheter to remain X 3 weeks as outlined in operative report * --> follow up with Urology in 1-2 weeks for removal (4) Paroxysmal atrial fibrillation: * Currently appears to be in a sinus rhythm with controlled ventricular rate * Continued Eliquis and Tikosyn as [employer]ATOR (5) Cavernous angioma: * On Keppra - continue this 500mg BID * Keppra level pending at discharge to r/o toxicity but unlikely at current dose (6) Parkinson disease: * Continued Parlodel, Sinemet, Comtan, propranolol as prior to hospitalization Total Time Total Time Spent Total Time Spent (In Minutes): 45 Discharge Plan Discharge Items Patient Disposition: Transfer Inpatient Rehab Fac Reason For Visit: CONSTIPATION, FATIGUE Discharge Diagnosis: Fatigue, Deconditioning Condition on Discharge: Good Goals: You have been hospitalized for an acute medical problem. During your stay at [facility], we have made an effort to correct the problem that brought you to the hospital while keeping you as comfortable as possible. Medications were used to bring your condition under control and your discharge instructions will include directions for any medications you should take after leaving the hospital. Please make sure you see your Primary Care Provider as part of your follow up plan. Activity: As commented below Activity Comment: advance with therapy as tolerated Non-emergency contact: Primary Care Provider and Urologist Call non-emergency contact if: you have any medication questions, your symptoms worsen, your pain is concerning for you and you have a fever Follow-up/Referrals: Julio C Zhou DO [Physician] - 11/27/21 1:00 pm (1-2 weeks) Kostas aHnnah [Primary Care Provider] - Diet: Carb Consistent or DM2 and Heart Healthy Addtl Attending Provider Instructions: You have been hospitalized for weakness/fatigue/constipation and deconditioning. Imaging has been negative for infectious work-up and CT of your head did not show any evidence of stroke. It did note a moderate amount of stool burden and you were given medications to help move your bowels. You should continue a bowel regimen daily to prevent constipation as this can increase fatigue/weakness. You were evaluated by therapy and recommendations are for rehab unless 24 hour care/service at home could be provided. This has been arranged to [facility] to work on strength/conditioning as you likely had reduced ambulation once you had a mascorro placed for your procedure. This will need to remain in place until you have follow up with Urology which should be in the next 1-2 weeks (3 weeks from surgery). Please follow up with your PCP in the next 7-10 days to monitor your progress. You had a level for your keppra sent out which has not resulted, but you are on a low dose and suspect this would not be elevated. You will be called if this value returns abnormal for further instructions but we do not expect this to be the case. Please return to the ER with any fever, chills, chest pain, shortness of breath, or for any other symptoms concerning for you. Take care! Pending Studies at Discharge: Yes Studies:: Keppra Level Stand-Alone Forms: My [facility] Skilled Items Patient informed of condition?: Yes DNR: Yes Discharge Level of Care: Acute rehab Communicable Disease: No Discharge Prognosis: Stable Lines: None Urinary Catheter: Yes Medications and DC Order Prescriptions: Continued levetiracetam [Keppra] 500 mg Tablet 500 mg PO BID RF: 0 metformin 1,000 mg Tablet 1,000 mg PO BID RF: 0 carbidopa-levodopa [Sinemet] 25-100 mg tablet 1 tab PO QID RF: 0 cranberry 500 mg Capsule 500 mg PO QAM RF: 0 cholecalciferol (vitamin D3) [Vitamin D3] 2,000 unit Tablet 2,000 unit PO QAM RF: 0 cyanocobalamin (vitamin B-12) 1,000 mcg Tablet 1,000 mcg PO QAM RF: 0 methenamine hippurate 1 gram tablet 1 g PO BID RF: 0 ascorbic acid (vitamin C) [Vitamin C] 500 mg Tablet 500 mg PO BID RF: 0 glipizide 2.5 mg tablet extended release 24hr 2.5 mg PO QAM RF: 0 pantoprazole 40 mg tablet,delayed release (DR/EC) 40 mg PO QAM RF: 0 Eliquis 5 mg tablet 5 mg PO BID RF: 0 dofetilide 250 mcg capsule 250 mcg PO BID RF: 0 bromocriptine 2.5 mg Tablet 1.25 mg PO BID RF: 0 acetaminophen [Tylenol] 325 mg Tablet 650 mg PO Q6H PRN (Reason: Pain) RF: 0 donepezil 5 mg Tablet 5 mg PO HS RF: 0 magnesium oxide 400 mg (241.3 mg magnesium) Tablet 400 mg PO QAM RF: 0 propranolol 20 mg Tablet 10 mg PO QAM RF: 0 lactulose 10 gram/15 mL Solution 20 g PO 3XWK RF: 0 docusate sodium [Colace] 100 mg capsule 100 mg PO BID RF: 0 entacapone [Comtan] 200 mg Tablet 200 mg PO QID RF: 0 oxybutynin chloride 5 mg tablet 5 mg PO Q8H PRN (Reason: bladder spasms) Qty: 20 RF: 0 tamsulosin 0.4 mg capsule 0.4 mg PO HS Qty: 30 RF: 0 phenazopyridine [Pyridium] 200 mg tablet 200 mg PO Q8H PRN (Reason: pain) Qty: 10 RF: 0 Discontinued cephalexin 500 mg capsule 500 mg PO BID 10 Days Qty: 20 RF: 0 Discharge Orders: Discharge Order (Routine); Ordered 11/21/21 Ordered By: Mely Katz/Other Patient Handouts: Managing Type 2 Diabetes, Special Foot Care for Diabetes Admission Data Admit Date/Time: 11/19/21 21:49 Attending Provider: Nikhil Guzmán Admit Provider: Cooper Stratton Primary Care Provider: Kostas Hannah Other Providers: Charisse Goode Other Interventions: Discharge Summary Assessment (RN) Last Done: 11/21/21 15:30 Supervising Physician Co-Signing Physician Notes 70 yo female seend and examined at bedside. During face to face encounter, obtained history of hospital stay and performed physical exam. D/w discharge plan with patient and EDMOND Colunga. I reviewed above note and agree with it. Patient admitted for debility and will be discharged to rehab in hopes she improves. Coding Level of Care Code D/C DAY MANAGEMENT >30 MINS Diagnoses Debility R53.81 Constipation K59.00 BPH w urinary obs/LUTS N40.1; N13.8 Paroxysmal atrial fibrillation I48.0 Cavernous angioma D18.00 Parkinson disease G20
== END 2021-11-21 17:37 | DRG 392 ==
LOC: ED 16:59 → SUATTDRO 21:49 → 3W 21:49